=== PATIENT | female | born 1975 | race Caucasian/White ===

== ENCOUNTER 2019-09-19 08:25 | Outpatient (CLI) | payer BC, SELFPAY ==
--- NOTE | ~2019-09-19 | XR_ITS ---
XR abdomen/kub 1V DATE: 09/19/2019 08:44 INDICATION: Right kidney stone TECHNIQUE: AP view COMPARISON: 07/17/2019 KUB FINDINGS: There is suggestion of a large faintly calcified stone overlying the right ureteropelvic ju nction. Noncontrast CT examination of the abdomen and pelvis is recommended for more definitive confi rmation or exclusion of urinary tract stones as clinically appropriate. Bilateral calcified pelvic phleboliths. No visceromegaly is evident. The psoas shadows are intact. No evidence of bowel obstruction. IMPRESSION: Large faintly calcified right ureteropelvic junction stone is suggested; consider noncont rast CT abdomen pelvis examination Reviewed, dictated and finalized at [facility]. Reviewed, dictated and finalized at location [facility]. [employer] IMPRESSION: Large faintly calcified right ureteropelvic junction stone is sugge sted; consider noncontrast CT abdomen pelvis examination
== END 2019-09-19 08:26 | disposition home or self-care (01) ==
PROVIDERS: PCP Physician Assistant; Visit Provider Urology
DX: N20.0 Calculus of kidney (principal)
CPT/HCPCS: 74018

== ENCOUNTER 2019-09-21 11:12 | Outpatient (CLI) | payer BC, SELFPAY ==
--- NOTE | ~2019-09-21 | CT_ITS ---
EXAMINATION: CT abdomen pelvis wo con DATE: 09/21/2019 12:07 INDICATION: Right kidney stone. TECHNIQUE: Computed tomography (CT) of the abdomen and pelvis was performed without intravenous contr ast. Automated exposure control and iterative reconstruction technique were employed. The dose-length product was 269.83 mGy-cm. COMPARISON: CT abdomen and pelvis 11/30/2018 FINDINGS: The visualized portions of the lung bases demonstrate minimal atelectasis. No pleural effus ion. The heart size is normal. No pericardial effusion. The liver, gallbladder, spleen, pancreas, adr enal glands, and left kidney are normal. There is a 2 mm stone in right kidney. There is moderate rig ht hydronephrosis. There is a 7 x 5 x 13 mm stone at right ureteropelvic junction. There are no dilat ed loops of bowel. The appendix is normal. There are no pathologically enlarged lymph nodes. There is no free intraperitoneal fluid. There is mild thoracolumbar spondylosis. IMPRESSION: 1. 7 x 5 x 13 mm stone at right ureteropelvic junction with moderate right hydronephrosis. 2. 2 mm nonobstructing right kidney stone. Reviewed, dictated and finalized at location [facility]. [employer] IMPRESSION: 1. 7 x 5 x 13 mm stone at right ureteropelvic junction with moderate right hydr onephrosis. 2. 2 mm nonobstructing right kidney stone.
== END 2019-09-21 11:13 | disposition home or self-care (01) ==
LOC: ANHIMG 11:20
PROVIDERS: PCP Physician Assistant; Visit Provider Urology
DX: N20.0 Calculus of kidney (principal); N13.2 Hydronephrosis with renal and ureteral calculous obstruction
CPT/HCPCS: 74176

== ENCOUNTER 2019-09-21 23:26 | Emergency (ER) | payer BC, SELFPAY ==
[2019-09-21 23:30] VITALS: BP 135/93; PULSE 102; RESP 16; TEMP 36.1; O2SAT 100
--- NOTE | 2019-09-21 23:58 | ED.ABDPAIN ---
HPI - Abdominal Pain General Chief Complaint: Abdominal Pain Stated Complaint: kidney stone Time Seen by Provider: 09/21/19 23:29 Source: patient and RN notes reviewed Mode of arrival: ambulatory Limitations: no limitations History of Present Illness HPI narrative: Pt is a 43 y/o female with a Hx of frequent kidney stones and several lithotripsies, who presents to the ED with c/o rt flank pain starting several days ago and worsening this evening. She notes that she has been evaluated for her symptoms, and was diagnosed with a rt ureteral stone earlier today. Pt states that she is scheduled for a lithotripsy tomorrow morning. She notes that her pain became aggravated around 17:00 this evening. Pt reports nausea and vomiting starting this evening as well as a low-grade fever for the past week. She notes that she has been taking Tramadol for her pain. MD elicited complaint: flank pain Pertinent past history: kidney stones Onset (ago): day(s) (several) Pain Consistency: other (worsening) Location: R flank Radiation: none Associated symptoms: nausea, vomiting and fever (low-grade) Treatments prior to arrival: prescription analgesics (Tramadol) Related Data Home Medications Medication Instructions Recorded Confirmed phentermine 37.5 mg PO DAILY 09/21/19 09/21/19 potassium citrate 10 meq PO BID 09/21/19 09/21/19 tramadol 50 - 100 mg PO Q6H PRN 09/21/19 09/21/19 Allergies Allergy/AdvReac Type Severity Reaction Status Date / Time No Known Allergies Allergy Unverified 09/21/19 13:33 Review of Systems Review of Systems: All systems reviewed & are unremarkable except as noted in HPI and below Constitutional: Constitutional: Reports fever(s) (low-grade) Gastrointestinal: Gastrointestinal: Reports nausea and Reports vomiting Genitourinary: Genitourinary: Reports flank pain (rt flank pain) [facility] Past Medical History Medical History (Updated 09/22/19 @ 03:44 by Alexandro Aviles MD) Bronchitis Gastric ulcer GERD (gastroesophageal reflux disease) Graves' disease Hypothyroidism Kidney stones UTI (urinary tract infection) Surgical History Surgical History Hx of arthroscopy of right knee x2 Hx of section x3 Hx of lithotripsy Hx of thyroidectomy Hx of tubal ligation Family History Family History (Updated 03/13/16 @ 23:19 by DOCTOR UNKNOWN) Grandparent Hypertension Family history of malignant neoplasm of breast Mother Family history of malignant neoplasm of ovary Social History Social History Smoking status: Never smoker Alcohol intake: current Comments PCP is Dr. Frank. Exam Narrative: Exam Narrative: GENERAL: Uncomfortable appearing, well-nourished, and in no acute distress. HEAD: Normocephalic, atraumatic. ENT: Mucous membranes moist. CHEST: Clear to auscultation. No respiratory distress. HEART: Tachycardic and regular. Normal peripheral pulses. ABDOMEN: Soft, nontender, nondistended. Back: No CVA tenderness. No midline tenderness of the T/L-spine. EXTREMITIES: Normal range of motion. No edema. SKIN: Warm, dry, no rash. NEURO: Alert and oriented x3. Course Course Emergency Course: Discussed with Dr. Hammonds. Will give ceftriaxone and send to the PACU at 6a. Pt aware of treatment plan. Vital Signs Vital signs: Vital Signs Temperature 97.0 F L 09/21/19 23:30 Pulse Rate 102 H 09/21/19 23:30 Respiratory Rate 16 09/21/19 23:30 Blood Pressure 135/93 H 09/21/19 23:30 Pulse Oximetry 100 09/21/19 23:30 Temperature 98.0 F 09/22/19 01:20 Pulse Rate 78 09/22/19 01:20 Respiratory Rate 16 09/21/19 23:30 Blood Pressure 140/88 09/22/19 01:20 Pulse Oximetry 100 09/22/19 01:20 MDM - Abdominal Pain Lab Data Result diagrams: 09/22/19 00:05 09/22/19 00:05 Labs: Lab Results 09/22/19 09/22/19 09/22/19 Range/Units 00
[2019-09-22 00:15] LABS: Basophils Percent Auto 0.1 % (0.2-1.2); Eosinophils Absolute Auto 0.1 K/mm3 (0-0.3); Eosinophils Percent Auto 0.6 % (0-4.4); Hematocrit 43.7 % (37.0-47.0); Hemoglobin 14.3 g/dL (12.0-15.0); Immature Granulocyte Absolute 0.05 K/mm3 (0.00-0.031); Immature Granulocyte Percent A 0.4 % (0-0.5); Lymphocytes Absolute Auto 1.78 K/mm3 (0.9-3.2); Lymphocytes Percent Auto 13.2 % (18.3-44.2); Mean Corpuscular HGB Conc 32.7 g/dl (32-36); Mean Corpuscular Hemoglobin 29.1 pg (26-34); Mean Corpuscular Volume 88.8 fl (80-100); Mean Platelet Volume 10.1 fl (7.4-10.4); Monocytes Absolute Auto 0.7 K/mm3 (0.1-0.6); Monocytes Percent Auto 5.3 % (2.6-8.5); Neutrophils Absolute Auto 10.8 K/mm3 (1.3-6.7); Neutrophils Percent Auto 80.4 % (45.5-73.1); Platelet Count Result 335 k/mm3 (150-375); Red Blood Count 4.92 M/mm3 (4.2-5.4); White Blood Count 13.5 K/mm3 (4.5-10.0)
[2019-09-22 00:30] LABS: Blood Urea Nitrogen 18 mg/dL (7-17); Calcium 9.6 mg/dL (8.4-10.2); Carbon Dioxide 23 mmol/L (22-30); Chloride 99 mmol/L (98-107); Estimated CRCL calculation 48 ml/min; Estimated Glomerular Filt Rate 49; Glucose 117 mg/dL (65-105); Potassium 4.2 mmol/L (3.4-5.0); Sodium 137 mmol/L (137-145)
[2019-09-22] MEDS: HYDROMORPHONE HCL 1 MG/ML INJ IV PUSH (00:33)
[2019-09-22] MEDS: ONDANSETRON INJ 4 MG/2 ML VIAL IV PUSH ×2 (00:33→01:05)
[2019-09-22 01:03] VITALS: TEMP 36.1
[2019-09-22] MEDS: SODIUM CHLORIDE 0.9% IV 1,000 ML 999 ML IV CONT (01:04)
[2019-09-22 01:20] VITALS: BP 140/88; PULSE 78; TEMP 36.7; O2SAT 100
[2019-09-22 02:14] LABS: Add Urine Microscopic? YES; Appearance Urine Turbid (Clear); Bacteria Urine 2+ /hpf; Bilirubin Urine Negative (Negative); Blood Urine 2+ (Negative); Color Urine Yellow (Yellow); Glucose Urine UA Negative (Negative); Ketones Urine 2+ mg/dL (Negative); Leukocyte Esterase Ur 2+ LEU/UL (Negative); Mucus Urine Moderate /lpf; Nitrate Urine Negative (Negative); Protein Urine 2+ mg/dL (Negative); RBC Urine 51-75 /hpf (0-2); Squamous Epithelial Cell Urine Many /hpf (Few); WBC Clumps Urine Present /HPF; WBC Urine >75 /hpf
[2019-09-22] MEDS: PROMETHAZINE HCL 25 MG/ML AMPUL 12.5 MG IV PUSH (02:18)
[2019-09-22 02:19] LABS: Specific Grav Ur 1.033 (1.001-1.035)
[2019-09-22 03:00] VITALS: BP 129/87; PULSE 82; RESP 22; TEMP 37.6; O2SAT 98
[2019-09-22 05:02] VITALS: BP 133/78; PULSE 87; RESP 17; O2SAT 96
[2019-09-22 06:05] VITALS: BP 137/82; PULSE 88; RESP 19; O2SAT 100
== END 2019-09-22 06:05 | disposition home or self-care (01) ==
PROVIDERS: Emergency Provider Emergency Medicine; PCP Physician Assistant
DX: N20.1 Calculus of ureter (principal); Z87.442 Personal history of urinary calculi; K21.9 Gastro-esophageal reflux disease without esophagitis; E05.00 Thyrotoxicosis with diffuse goiter without thyrotoxic crisis or storm; Z87.440 Personal history of urinary (tract) infections
CPT/HCPCS: 36415; 80048; 81001; 85025; 87077; 87086; 87088; 96361; 96365; 96375; 99284; J0696; J1170; J2405; J2550; J7030

== ENCOUNTER 2019-09-22 01:07 | Day surgery (SDC) | payer BC, SELFPAY ==
[2019-09-21 13:30] VITALS: BMI 31.2
[2019-09-22] VITALS (8 sets, daily range): BP systolic 128–144; BP diastolic 83–96; PULSE 77–115; RESP 15–20; TEMP 36.6; O2SAT 95–100
--- NOTE | ~2019-09-22 | XR_ITS ---
EXAMINATION: XR abdomen/kub 1V DATE: 09/22/2019 06:32 INDICATION: Kidney stone. TECHNIQUE: A supine view of the abdomen on 2 radiographs was obtained. COMPARISON: CT abdomen and pelvis 09/21/2019 FINDINGS: There are no dilated loops of bowel. There are phleboliths in the pelvis. There is a 14 x 6 mm stone in proximal right ureter. IMPRESSION: 1. 14 x 6 mm stone in proximal right ureter. Reviewed, dictated and finalized at location [facility]. [employer]
[2019-09-22] MEDS: LACTATED RINGERS 1,000 ML 30 ML IV CONT ×2 (06:45→09:44)
--- NOTE | 2019-09-22 06:51 | WPDANESEPPF ---
Anes - Initial Pre Proc Eval Procedure: Operation Date: 09/22/19 08:30 Proposed Procedures p Right Ureteropelvic Junction Extracorporeal Shock Wave Lithotripsy - Adis Grover MD s Cystoscopy, Possible Right Ureteroscopy with Stone Extraction, Possible Right Retrograde Pyelogram,(Right) - Adis Grover MD s Possible Holmium Laser Procedure(Right) - Adis Grover MD Date/Time: 09/22/19 06:51 Surgeon: Adis Grover MD Pre Op Diagnosis: Right UPJ Stone Patient Data Age: 43 Gender: F Height: 5 ft Weight: 72.57 kg Allergies Allergy/AdvReac Type Severity Reaction Status Date / Time No Known Allergies Allergy Unverified 09/21/19 13:33 Home Medications Medication Instructions Recorded Confirmed Type levothyroxine 100 mcg tablet 100 mcg PO DAILY #30 tablet 07/17/19 09/21/19 Rx phentermine 37.5 mg PO DAILY 09/21/19 09/21/19 History potassium citrate 10 meq PO BID 09/21/19 09/21/19 History tramadol 50 - 100 mg PO Q6H PRN 09/21/19 09/21/19 History Patient hx anesthesia problems: post op nausea/vomiting Family hx anesthesia problems: none PMFSH Past Medical History Medical History Bronchitis Gastric ulcer GERD (gastroesophageal reflux disease) Graves' disease Hypothyroidism Kidney stones UTI (urinary tract infection) Surgical History Surgical History Hx of arthroscopy of right knee x2 Hx of section x3 Hx of lithotripsy Hx of thyroidectomy Hx of tubal ligation Family History Family History Grandparent Hypertension Family history of malignant neoplasm of breast Mother Family history of malignant neoplasm of ovary Social History Social History Smoking status: Never smoker Alcohol intake: current Anes - Eval Final PreProcedure Day of Procedure 09/22/19 06:51 Patient weight: overweight Heart: regular rate and rhythm Lungs: clear to auscultation Airway: Mallampati scale class II Neurological: alert and oriented Last oral intake: >/= 8 hours ASA classification: II Emergent: no Anesthetic plan: proceed Anesthesia type and monitoring: general ETT and standard monitoring Informed Consent: The patient's anesthetic plan and its attendant risks and benefits were discussed with the patient/family/POA. Questions were solicited and answers provided to the satisfaction of the patient/family/POA.
[2019-09-22 07:14] LABS: Prothrombin Time 12.7 Seconds (11.1-14.7)
[2019-09-22] MEDS: SCOPOLAMINE 1.5 MG PATCH TRANSDERM (07:15)
[2019-09-22] MEDS: FAMOTIDINE 20 MG/2 ML VIAL IV PUSH (07:15)
[2019-09-22] MEDS: HYDROMORPHONE HCL 1 MG/ML INJ 0.5 MG IV PUSH (07:15)
[2019-09-22 07:25] LABS: Beta HCG Quantitative < 2.39 mIU/ML
--- NOTE | 2019-09-22 07:36 | WPDHPUPDATE1 ---
History and Physical Update Update Date/Time: 09/22/19 07:36 History and Physical has been reviewed, including an updated exam of the patient. There are NO changes in the patient's condition. Risks, benefits, and alternatives have been discussed and questions answered. Patient agrees to proceed with procedure.
--- NOTE | 2019-09-22 08:01 | SUR.PREOP ---
pt presents to preop holding area w/iv cath in place to right upper arm/see documentation for site/assessment
[2019-09-22] MEDS: ceFAZolin 2 GM/D5W 50 ML 2 GM/50 ML BAG IVPB (08:42)
--- NOTE | 2019-09-22 09:41 | PM.PROC ---
Procedure Note - Detailed Date of procedure: 09/22/19 Pre-op diagnosis: Right UPJ Stone Post-op diagnosis: same Procedure performed: Lithotripsy of 14 x 6 mm right ureteral calculus Description of procedure: Patient was taken to the operative suite and correctly identified. Once general anesthesia was obtained stone was localized in both planes. Three thousand shocks were given to the stone. There appeared to be very good fragmentation of the stone it was difficult to visualize at the termination. As such is she does not tolerate stents we decided to withhold placing one today. He was taken to recovery room stable condition. She will strain her urine and follow up in 7-10 days with a KUB. Anesthesia: GLMA Surgeon: Adis Grover MD Drains: No Packing: No Pathology: none sent Complications: No immediate complications Condition: stable Disposition: PACU
--- NOTE | 2019-09-22 10:15 | SUR.PHASEI ---
1015; PT C/O MILD NAUSEA. DENIES PAIN. DR BHAGAT NOTIFIED. STATES PT RECEIVED MULTIPLE MEDS FOR NAUSEA. ORDER FOR BENADRYL.
== END 2019-09-22 11:45 | disposition home or self-care (01) ==
PROVIDERS: PCP Physician Assistant; Visit Provider Urology
PROC: (CPT 50590; principal; 2019-09-22 08:30)
DX: N20.1 Calculus of ureter (principal); K21.9 Gastro-esophageal reflux disease without esophagitis; E89.0 Postprocedural hypothyroidism
CPT/HCPCS: 50590; 36415; 74018; 80048; 81001; 84702; 85025; 85610; 85730; 87077; 87086; 87088; 96361; 96365; 96375; 99284; A9270; J0131; J0330; J0690; J0696; J1100; J1170; J1200; J2250; J2405; J2550; J2704; J3010; J7030; J7120

== ENCOUNTER 2019-09-27 01:11 | Observation (INO) | payer BC, SELFPAY ==
[2019-09-27] VITALS (15 sets, daily range): BP systolic 115–145; BP diastolic 71–99; PULSE 69–97; RESP 10–20; TEMP 36.2–36.8; O2SAT 93–100; BMI 32.0
--- NOTE | ~2019-09-27 | CT_ITS ---
EXAMINATION: XR abdomen/kub 1V, CT abdomen pelvis wo con DATE: 09/27/2019 02:33 INDICATION: Right flank pain TECHNIQUE: 1. Computed tomography (CT) of the abdomen and pelvis was performed without intravenous contrast. Aut omated exposure control and iterative reconstruction technique were employed. The dose-length product was 272.96 mGy-cm. 2. Supine AP view of the abdomen and pelvis was obtained. COMPARISON: 09/21/2019 FINDINGS: CT: Lung bases are clear. Size is normal. No pericardial or pleural effusion. Liver, gallbladder, spleen, pancreas, bilateral adrenal glands and left kidney are normal. No change in position but with interv al fragmentation of the previously seen stone at the proximal right ureter consistent with interval l ithotripsy. The cluster of stones is now comprised of a 7 x 5 x 4 mm more caudal stone fragment and 4 mm or more likely pair of 2 mm stone fragments along its cephalad margin. There is unchanged moderat e right hydronephrosis. Additional 2 mm stone at the mid right kidney. Bowels including the appendix are normal. Decompressed bladder, anteverted uterus and bilateral adnexa are unremarkable. No free in traperitoneal gas or fluid. No pathologically enlarged abdominal or pelvic lymphadenopathy. Mild thor acic and minimal lumbar spondylosis. KUB: The cluster of stone fragments projects slightly lateral to the tip of the right transverse process o f L3. A few phleboliths in the pelvis. Additional 2 mm right renal stone is clearly visualized likely obscured by superimposed mild gas and stool in the ascending colon. IMPRESSION: 1. Changes consistent with recent lithotripsy with no change in position of a posterior residual ston e fragments at the proximal right ureter with moderate right hydronephrosis. Reviewed, dictated and finalized at location A. [employer] IMPRESSION: 1. Changes consistent with recent lithotripsy with no change in position of a p osterior residual stone fragments at the proximal right ureter with moderate ri ght hydronephrosis.
--- NOTE | ~2019-09-27 | XR_ITS ---
EXAMINATION: XR retrograde pyelo w/stent RT INDICATION: Right ureteral stone TECHNIQUE: Four intraoperative fluoroscopic images are submitted for review. Total fluoroscopic time is 10.3 seconds. COMPARISON: KUB from today FINDINGS: There is mild right hydronephrosis. The final image demonstrates an internal ureteral stent coiled in the right renal pelvis. IMPRESSION: Mild right hydronephrosis. Please refer to procedure note for full details. Reviewed, dictated and finalized at location A. [employer]
[2019-09-27 01:39] LABS: Basophils Percent Auto 0.2 % (0.2-1.2); Eosinophils Absolute Auto 0.1 K/mm3 (0-0.3); Eosinophils Percent Auto 1.4 % (0-4.4); Hematocrit 42.2 % (37.0-47.0); Hemoglobin 13.8 g/dL (12.0-15.0); Immature Granulocyte Absolute 0.03 K/mm3 (0.00-0.031); Immature Granulocyte Percent A 0.4 % (0-0.5); Lymphocytes Absolute Auto 1.74 K/mm3 (0.9-3.2); Lymphocytes Percent Auto 20.8 % (18.3-44.2); Mean Corpuscular HGB Conc 32.7 g/dl (32-36); Mean Corpuscular Hemoglobin 28.9 pg (26-34); Mean Corpuscular Volume 88.5 fl (80-100); Monocytes Absolute Auto 0.7 K/mm3 (0.1-0.6); Monocytes Percent Auto 8.8 % (2.6-8.5); Neutrophils Absolute Auto 5.7 K/mm3 (1.3-6.7); Neutrophils Percent Auto 68.4 % (45.5-73.1); Platelet Count Result 366 k/mm3 (150-375); Red Blood Count 4.77 M/mm3 (4.2-5.4); Red Cell Distribution Width 12.9 % (11.5-14.5); White Blood Count 8.4 K/mm3 (4.5-10.0)
--- NOTE | 2019-09-27 01:43 | ED.ABDPAIN ---
HPI - Abdominal Pain General Chief Complaint: Abdominal Pain Stated Complaint: flank pain Time Seen by Provider: 09/27/19 01:42 Source: patient and RN notes reviewed Mode of arrival: other Limitations: no limitations History of Present Illness HPI narrative: Pt is a 43 y/o female who presents to the ED with c/o right flank pain that began at 5 PM yesterday (09/27/19). Pt states that she had a lithotripsy by Dr. Grover on Wednesday (09/22/19). Pt finished her abx two days ago (09/25/19). Pt states that she took Tramadol last night (09/26/19), but with no relief of her sx. Pt reports nausea, vomiting, and decreased urination, but denies CP and SOB. Pt's urologist is Dr. Segovia. elicited complaint: flank pain Onset (ago): day(s) (1) Pain Consistency: constant Location: R flank Relieving factors: nothing Context: confirms recent surgery/procedure Associated symptoms: nausea, vomiting and other (decreased urination) Treatments prior to arrival: other (Tramadol) Related Data Home Medications Medication Instructions Recorded Confirmed phentermine 37.5 mg PO DAILY 09/21/19 09/27/19 potassium citrate 10 meq PO BID 09/21/19 09/27/19 tramadol 50 - 100 mg PO Q6H PRN 09/21/19 09/27/19 Allergies Allergy/AdvReac Type Severity Reaction Status Date / Time No Known Allergies Allergy Unverified 09/27/19 02:15 Review of Systems Review of Systems: All systems reviewed & are unremarkable except as noted in HPI and below Cardiovascular: Cardiovascular: Denies chest pain Respiratory: Respiratory: Denies dyspnea Gastrointestinal: Gastrointestinal: Reports nausea and Reports vomiting Genitourinary: Genitourinary: Reports flank pain (right) and Reports other (decreased urination) PMFSH Past Medical History Medical History Bronchitis Gastric ulcer GERD (gastroesophageal reflux disease) Graves' disease Hypothyroidism Kidney stones UTI (urinary tract infection) Surgical History Surgical History Hx of arthroscopy of right knee x2 Hx of section x3 Hx of lithotripsy Hx of thyroidectomy Hx of tubal ligation Family History Family History Grandparent Hypertension Family history of malignant neoplasm of breast Mother Family history of malignant neoplasm of ovary Social History Social History Smoking status: Never smoker Alcohol intake: current Drinks per week: 0 Substance use: never Substance use type: does not use Gender identity (if verbalized by the patient): Female Spiritual care concerns: No Agree to blood products: Yes Exam Narrative: Exam Narrative: GENERAL: well-nourished, in severe distress. leaning over bed HEAD: Normocephalic, atraumatic EYES: PERRLA and EOMI, conjunctiva clear without discharge THROAT:Mucous membranes moist, NECK: Supple, without lymphadenopathy or mass RESPIRATORY: No respiratory distress, Airway patent, Respirations non-labored, Clear to auscultation without rales, rhonchi or wheeze HEART: Regular rate and rhythm. No murmur heard. Normal peripheral pulses. ABDOMEN: Soft, RUQ, right CVA tenderness nondistended, normal active bowel sounds. No masses. No rebound or guarding, No organomegaly. EXTREMITIES: No edema, normal strength with full range of motion. SKIN: Warm, dry, normal color without rash NEURO: Alert and oriented x3. CN 2-12 grossly intact. No focal deficits. PSYCH: Normal mood and affect. Course Consultations Consultation #1: Discussed case with Dr. Hammonds (Urology). He accepts patient to their service for right proximal stone with obstructive uropathy. he states to make patient NPO. Date: 09/27/19 Time: 02:56 Vital Signs Vital signs: Vital Signs Temperature 97.1 F L 09/27/19 01:16 Pulse
[2019-09-27 01:44] LABS: Blood Urea Nitrogen 21 mg/dL (7-17); Calcium 9.7 mg/dL (8.4-10.2); Carbon Dioxide 25 mmol/L (22-30); Chloride 97 mmol/L (98-107); Estimated CRCL calculation 33 ml/min; Estimated Glomerular Filt Rate 31; Glucose 117 mg/dL (65-105); Potassium 4.2 mmol/L (3.4-5.0); Sodium 134 mmol/L (137-145)
[2019-09-27] MEDS: LACTATED RINGERS 1,000 ML 999 ML IV CONT (02:10)
[2019-09-27 02:11] LABS: Add Urine Microscopic? YES; Appearance Urine Cloudy (Clear); Bacteria Urine Trace /hpf; Bilirubin Urine Negative (Negative); Blood Urine Negative (Negative); Color Urine Yellow (Yellow); Glucose Urine UA Negative (Negative); Ketones Urine Negative (Negative); Leukocyte Esterase Ur Trace LEU/UL (Negative); Mucus Urine Rare /lpf; Nitrate Urine Negative (Negative); Protein Urine Negative (Negative); Squamous Epithelial Cell Urine Many /hpf (Few); Urobilinogen Urine Negative mg/dL (<2.0)
[2019-09-27] MEDS: HYDROMORPHONE HCL 1 MG/ML INJ IV PUSH (02:13)
[2019-09-27] MEDS: ONDANSETRON INJ 4 MG/2 ML VIAL IV PUSH ×2 (02:13→16:43)
[2019-09-27] MEDS: LACTATED RINGERS 1,000 ML 125 ML IV CONT ×2 (04:04→12:19)
--- NOTE | 2019-09-27 04:07 | ADMGEN ---
This patient, Carrie Ca, was admitted to Medical Room [facility] at 0403. Patient/family oriented to hospital policies and general routines including ID bracelet, bed and alarms, visiting hours, pain management, procedures, bathroom and other care routines, personal items, smoking policy, room service/diet, and visiting hours. Valuables list has been completed. Information on how to activate the Rapid Response Team has been discussed. Patient/Family are encouraged to report perceived risks to care and to ask questions if they do not understand what they are told or what they should do.
[2019-09-27] MEDS: PROMETHAZINE HCL 25 MG/ML AMPUL 12.5 MG IV PUSH (04:16)
[2019-09-27] MEDS: MORPHINE SULFATE 4 MG/ML INJ IV PUSH (04:17)
--- NOTE | 2019-09-27 07:05 | PM.IMHP ---
H&P: HPI History of Present Illness Chief complaint: right obstructive uropathy,right proximal ureteral Narrative: Carrie Ca is a 43 year old female who is status post right ureteral lithotripsy last week. She was doing well and stated she passed some fragments but then developed severe right renal colic and ended up in the emergency room last night. Evaluation the emergency room with a CT scan reveals residual right proximal ureteral stones there does appear to be some fragmentation but overall is fairly large in size at approximately 5-6 mm. She had persistent hydronephrosis. Her creatinine had bumped up slightly to 1.8. She is admitted for pain control and further management. She denied any fevers at home. Review of Systems Review of Systems: All systems reviewed & are unremarkable except as noted in HPI and below PMFSH Past Medical History Medical History Bronchitis Gastric ulcer GERD (gastroesophageal reflux disease) Graves' disease Hypothyroidism Kidney stones UTI (urinary tract infection) Surgical History Surgical History Hx of arthroscopy of right knee x2 Hx of section x3 Hx of lithotripsy Hx of thyroidectomy Hx of tubal ligation Family History Family History Grandparent Hypertension Family history of malignant neoplasm of breast Mother Family history of malignant neoplasm of ovary Social History Social History Smoking status: Never smoker Alcohol intake: current Drinks per week: 0 Substance use: never Substance use type: does not use Gender identity (if verbalized by the patient): Female Spiritual care concerns: No Agree to blood products: Yes Meds Home Medications and Allergies Home Medications Medication Instructions Recorded Confirmed Type levothyroxine 100 mcg tablet 100 mcg PO DAILY #30 tablet 07/17/19 09/27/19 Rx phentermine 37.5 mg PO DAILY 09/21/19 09/27/19 History potassium citrate 10 meq PO BID 09/21/19 09/27/19 History tramadol 50 - 100 mg PO Q6H PRN 09/21/19 09/27/19 History Allergies Allergy/AdvReac Type Severity Reaction Status Date / Time No Known Allergies Allergy Unverified 09/27/19 02:15 Vital Signs Vital Signs - 24 hr 09/27/19 01:16 09/27/19 03:55 09/27/19 05:44 Temperature 36.2 C L 36.3 C L 36.3 C L Pulse Rate 69 73 81 Respiratory Rate 18 14 16 Blood Pressure 128/95 H 133/90 130/95 H Pulse Oximetry 99 100 100 Exam Const: General: uncomfortable HENMT: General nose exam: Normal nares present Eyes: General: appearance normal, both eyes and all related structures Resp: Effort & Inspection: normal respiratory effort Cardio: Rate: regular rate Rhythm: regular rhythm Skin: General skin exam: normal color Neuro: Speech: normal speech Extrem: General: normal to inspection H&P: Results Labs Labs: Short CBC 09/27/19 Range/Units 01:27 WBC 8.4 (4.5-10.0) K/mm3 Hgb 13.8 (12.0-15.0) g/dL Hct 42.2 (37.0-47.0) % Plt Count 366 (150-375) k/mm3 [facility] 09/27/19 01:27 Sodium 134 L Potassium 4.2 Chloride 97 L Carbon Dioxide 25 BUN 21 H Creatinine 1.80 H Glucose 117 H Calcium 9.7 Urine 09/27/19 Range/Units 01:48 Urine Color Yellow (Yellow) Urine Appearance Cloudy H (Clear) Urine pH 6.0 (5.0-9.0) Ur Specific [place] 1.020 (1.001-1.035) Urine Protein Negative (Negative) mg/dL Urine Glucose (UA) Negative (Negative) mg/dL Assessment and Plan Assessment and plan (1) Right ureteral calculus: Code(s): N20.1 - Calculus of ureter Status: Acute Assessment and Plan: Plan is for pain control. We will proceed with cystoscopy right retrograde pyelogram right ureteral stent placement today
[2019-09-27] MEDS: LEVOTHYROXINE SODIUM 100 MCG TABLET PO (09:28)
[2019-09-27] MEDS: POTASSIUM CITRATE 5 MEQ TAB CR 10 MEQ PO (09:28)
--- NOTE | 2019-09-27 13:49 | PCCCNOTE ---
On 09/27/19, the student, [Suyapa Angelo ], provided care [facility] I have reviewed the student's documentation and agree with the findings.
[2019-09-27] MEDS: LACTATED RINGERS 1,000 ML 30 ML IV CONT ×2 (15:15→16:50)
--- NOTE | 2019-09-27 15:43 | P.PNAN_ITS ---
Anes - Eval Final PreProcedure Day of Procedure 09/27/19 15:43 Patient weight: obese Heart: regular rate and rhythm Lungs: clear to auscultation Airway: Mallampati scale class II Neurological: alert and oriented Last oral intake: >/= 8 hours ASA classification: II Emergent: yes Anesthetic plan: proceed Anesthesia type and monitoring: general LMA and standard monitoring Informed Consent: The patient's anesthetic plan and its attendant risks and be nefits were discussed with the patient/family/POA. Questions were solicited and answers provided to the satisfaction of the patient/family/POA.
[2019-09-27] MEDS: SCOPOLAMINE 1.5 MG PATCH TRANSDERM (15:49)
[2019-09-27] MEDS: ceFAZolin 2 GM/D5W 50 ML 2 GM/50 ML BAG IVPB (15:53)
[2019-09-27] MEDS: LIDOCAINE HCL 2% GEL UROJET 10 ML PKG MUCOUS MEM (16:08)
--- NOTE | 2019-09-27 16:26 | P.OP_ITS ---
Procedure Note - Detailed Date of procedure: 09/27/19 Pre-op diagnosis: right obstructive uropathy,right proximal ureteral Post-op diagnosis: same Procedure performed: Cystoscopy, right retrograde pyelogram, right ureteroscopy with holmium laser of ureteral calculus, stone extraction, right ureteral stent placement 4.8 Indonesian contour Description of procedure: Patient was taken the operative suite and correctly identified. Once general anesthesia was obtained she was placed in dorsal lithotomy position prepped and draped usual sterile fashion. Twenty-two Indonesian scope was inserted into the bladder. There are no tumors noted the right year orifice was cannulated with a guidewire. A rigid ureteral scope was inserted the stone was visualized at the level of the sacral area. It was too large retrieved in 1 piece. Using a 273 micron fiber we lasered the stone into multiple pieces. The largest were sent for analysis. The ureter was reinspected all the way up to the renal pelvis no further stones identified. Pyelogram was then performed to confirm placement of the stent. 4.8 Indonesian contour stent was then placed with the proximal end coiled in the renal pelvis and the distal end the bladder. 2% viscous lidocaine was inserted into the bladder after was drained. Patient is taken recovery stable condition. She will be discharged home later today if she is tolerates a diet. She can follow up Wednesday for stent removal in [place] office. Anesthesia: GLMA Surgeon: Adis Grover MD Drains: Yes Packing: No Pathology: yes Complications: No immediate complications Condition: stable Disposition: PACU
--- NOTE | 2019-09-27 17:23 | SUR.PHASEI ---
1700 updated family in waiting room.
[2019-09-27] MEDS: HALOPERIDOL LACTATE 5 MG/ML VIAL 1 MG IV PUSH (18:01)
--- NOTE | 2019-10-24 13:52 | P.DS_ITS ---
DS: Diagnosis Admitting Diagnosis Admitting Diagnosis: Unspecified abdominal pain DS: Summary Time Spent with Patient Time attestation: Total time spent providing and/or coordinating discharge services: DS: Data Data Completed and Pending Completed studies during hospitalization: Pending at discharge 09/27/19 16:15 Surgical [PTH] Routine Discharge Plan Discharge Attending physician on discharge: Adis Grover Consulting providers: rPasanna Hahn ; Shamar Marin Discharging Clinician: Adis Grover Patient Disposition: Home, Self-Care Activity: may shower and as tolerated Diet: as tolerated Discharge Instructions: Remove the Scopolamine patch that was placed behind your ear in 72 hours or less. Wash your hands after touching. Call for appointment to have stent removed. Can be seen in [place] office on Wednesday otherwise later in the week in [place] office Patient Instructions: Antibiotic Form Stand Alone Forms: General Discharge Information Follow-up/Referrals: Adis Grover MD [Physician] - Discharge Medications: Continued levothyroxine 100 mcg tablet 100 mcg PO DAILY Qty: 30 RF: 3 phentermine 37.5 mg tablet 37.5 mg PO DAILY RF: 0 potassium citrate 10 mEq (1,080 mg) tablet extended release 10 meq PO BID RF: 0 tramadol 50 mg tablet 50 - 100 mg PO Q6H PRN (Reason: Pain) RF: 0 Date of admission: 09/27/19 03:03 Primary Care Provider: LuzmaMigel Admitting Provider: Lewis Hammonds Discharge Date/Time: 09/27/19 19:35 Attending physician on admission: Adis Grover Condition: Stable
== END 2019-09-27 19:35 | disposition home or self-care (01) ==
LOC: ANHED 02:54 → ANH2MED 07:15
PROVIDERS: Admitting Provider Urology; Emergency Provider General Practice; PCP Physician Assistant; Visit Provider Urology
PROC: (CPT 52352; principal; 2019-09-27 15:30)
DX: N13.2 Hydronephrosis with renal and ureteral calculous obstruction (principal); N17.9 Acute kidney failure, unspecified; E03.9 Hypothyroidism, unspecified
CPT/HCPCS: 52356; 36415; 74018; 74176; 74420; 80048; 81001; 81025; 82365; 85025; 88300; 96361; 96374; 96375; 96376; 99291; A9270; C1758; C1769; C2617; G0378; J0131; J0690; J1100; J1170; J1630; J2250; J2270; J2405; J2550; J2704; J7120; Q9966

== ENCOUNTER 2019-10-12 17:17 | Outpatient (CLI) | payer BC, SELFPAY ==
--- NOTE | ~2019-10-12 | XR_ITS ---
EXAMINATION: XR abdomen/kub 1V DATE: 10/12/2019 17:41 INDICATION: Kidney stone presenting with right flank pain TECHNIQUE: A supine view of the abdomen was obtained. COMPARISON: 09/27/2019 FINDINGS: Previous stone seen in the mid right ureter is no longer visualized and has likely been extracted. Un changed pattern of a few phleboliths in the pelvis. No other suspicious calcifications identified. No rmal bowel gas pattern. Bones are unremarkable. IMPRESSION: 1. No evident urolithiasis. Reviewed, dictated and finalized at location A. E TECHNICIAN IMPRESSION: 1. No evident urolithiasis.
== END 2019-10-12 17:18 | disposition home or self-care (01) ==
LOC: ANHIMG 17:20
PROVIDERS: PCP Physician Assistant; Visit Provider Urology
DX: N20.0 Calculus of kidney (principal)
CPT/HCPCS: 74018

== ENCOUNTER 2020-02-17 13:45 | Outpatient (CLI) | payer BC, SELFPAY ==
--- NOTE | ~2020-02-17 | XR_ITS ---
EXAMINATION: XR abdomen/kub 1V DATE: 02/17/2020 14:02 INDICATION: Right ureteral stone TECHNIQUE: A supine view of the abdomen on 2 radiographs was obtained. COMPARISON: 10/12/2019 FINDINGS: Unchanged pattern of 4 phleboliths in the pelvis. No evident urolithiasis. Normal bowel gas pattern. Lung bases are clear. Heart size is normal. Bones are unremarkable. IMPRESSION: 1. No evident urolithiasis. Reviewed, dictated and finalized at location A. IMPRESSION: 1. No evident urolithiasis.
== END 2020-02-17 13:46 | disposition home or self-care (01) ==
PROVIDERS: PCP Physician Assistant; Visit Provider Urology
DX: N20.1 Calculus of ureter (principal)
CPT/HCPCS: 74018

== ENCOUNTER 2020-03-04 11:13 | Outpatient (CLI) | payer BC, SELFPAY ==
[2020-03-04 12:03] LABS: Hematocrit 43.3 % (37.0-47.0); Hemoglobin 14.1 g/dL (12.0-15.0); Mean Corpuscular HGB Conc 32.6 g/dl (32-36); Mean Corpuscular Hemoglobin 28.6 pg (26-34); Mean Corpuscular Volume 87.8 fl (80-100); Mean Platelet Volume 9.8 fl (7.4-10.4); Platelet Count Result 352 k/mm3 (150-375); Red Blood Count 4.93 M/mm3 (4.2-5.4); White Blood Count 7.4 K/mm3 (4.5-10.0)
[2020-03-04 12:42] LABS: Thyroid Stimulating Hormone 0.064 uIU/mL (0.465-4.680)
[2020-03-04 13:25] LABS: Free T4 Free Thyroxine 1.86 ng/mL (0.78-2.19)
[2020-03-07 06:13] LABS: Prolactin 7.7 ng/mL (***)
== END 2020-03-04 11:14 | disposition home or self-care (01) ==
PROVIDERS: PCP Physician Assistant; Visit Provider Nurse Practitioner
DX: N92.0 Excessive and frequent menstruation with regular cycle (principal)
CPT/HCPCS: 36415; 84146; 84439; 84443; 85027

== ENCOUNTER → 2020-03-15 10:12 | Outpatient (CLI) | payer BC, SELFPAY ==
--- NOTE | ~2020-03-15 | US_ITS ---
EXAMINATION: US transvaginal DATE: 03/15/2020 10:48 INDICATION: Menorrhagia, pelvic pain and pressure TECHNIQUE: Multiple endovaginal sonographic images of the pelvis were obtained. COMPARISON: CT, 09/27/2019 FINDINGS: The uterus measures 8.7 x 2.6 x 4.3 cm. The endometrial complex measures 4 mm. The right ov rosemary measures 1.3 x 1.7 x 1.3 cm. The left ovary measures 2.1 x 1.3 x 1.4 cm. There is no free fluid i n the pelvis. IMPRESSION: 1. No sonographic correlate for the patient's symptoms. Reviewed, dictated and finalized at location B.
== END ==
PROVIDERS: PCP Physician Assistant; Visit Provider Nurse Practitioner
DX: N92.0 Excessive and frequent menstruation with regular cycle (principal); N85.2 Hypertrophy of uterus
CPT/HCPCS: 76830

== ENCOUNTER 2020-06-26 09:10 | Outpatient (CLI) | payer BC, SELFPAY ==
--- NOTE | 2020-06-26 11:00 | NEURO_ITS ---
Impression: # Complains of nocturnal pain in hands. # Bilateral Carpal Tunnel Syndrome, right more than left. # No ulnar neuropathy. # Normal needle/EMG exam. Nerve Conduction Studies Anti Sensory Summary Table Stim Site NR Peak (ms) P-T Amp (?V) Site1 Site2 Delta-P (ms) Dist (cm) Adolph (m/s) Left Median Anti Sensory (2-3nd Digit) Wrist 3.6 78.6 Wrist 2-3nd Digit 3.6 14.0 39 Wrist 3.7 78.0 Wrist 2-3nd Digit 3.6 14.0 39 Right Median Anti Sensory (2-3nd Digit) Wrist 5.9 31.8 Wrist 2-3nd Digit 5.9 14.0 24 Wrist 7.1 76.0 Wrist 2-3nd Digit 5.9 14.0 24 Left Radial Anti Sensory (Base 1st Digit) Wrist 2.2 17.6 Wrist Base 1st Digit 2.2 0.0 Right Radial Anti Sensory (Base 1st Digit) Wrist 2.1 21.9 Wrist Base 1st Digit 2.1 0.0 Left Ulnar Anti Sensory (5th Digit) Wrist 2.6 45.8 Wrist 5th Digit 2.6 14.0 54 Right Ulnar Anti Sensory (5th Digit) Wrist 2.8 78.5 Wrist 5th Digit 2.8 14.0 50 Motor Summary Table Stim Site NR Onset (ms) O-P Amp (mV) Site1 Site2 Delta-0 (ms) Dist (cm) Adolph (m/s) Left Median Motor (Abd Poll Brev) Wrist 4.3 5.3 Elbow Wrist 4.3 24.0 56 Elbow 8.6 2.3 Right Median Motor (Abd Poll Brev) Wrist 6.4 1.5 Elbow Wrist 4.1 23.0 56 Elbow 10.5 2.0 Left Ulnar Motor (Abd Dig Minimi) Wrist 2.3 5.8 A Elbow Wrist 4.5 27.0 60 A Elbow 6.8 5.9 Right Ulnar Motor (Abd Dig Minimi) Wrist 2.2 7.3 A Elbow Wrist 4.3 26.0 60 A Elbow 6.5 6.6 F Wave Studies NR F-Lat (ms) L-R F-Lat (ms) Left Median (Mrkrs) (Abd Poll Brev) 28.30 0.94 Right Median (Mrkrs) (Abd Poll Brev) 29.24 0.94 Left Ulnar (Mrkrs) (Abd Dig Min) 25.43 0.42 Right Ulnar (Mrkrs) (Abd Dig Min) 25.86 0.42 EMG Side Muscle Nerve Root Ins Act Fibs Amp Dur Recrt Comment Right 1stDorInt Ulnar C8-T1 Nml Nml Nml Nml Nml Right Ext Indicis Radial (Post Int) C7-8 Nml Nml Nml Nml Nml Right Ext Digitorum Radial (Post Int) C7-8 Nml Nml Nml Nml Nml Right BrachioRad Radial C5-6 Nml Nml Nml Nml Nml Right PronatorTeres Median C6-7 Nml Nml Nml Nml Nml Right Abd Poll Brev Median C8-T1 Nml Nml Nml Nml Nml Left 1stDorInt Ulnar C8-T1 Nml Nml Nml Nml Nml Left Ext Indicis Radial (Post Int) C7-8 Nml Nml Nml Nml Nml Left Ext Digitorum Radial (Post Int) C7-8 Nml Nml Nml Nml Nml Left BrachioRad Radial C5-6 Nml Nml Nml Nml Nml Left PronatorTeres Median C6-7 Nml Nml Nml Nml Nml Left Abd Poll Brev Median C8-T1 Nml Nml Nml Nml Nml MTDD
== END 2020-06-26 09:11 | disposition home or self-care (01) ==
PROVIDERS: PCP Physician Assistant; Visit Provider Physician Assistant
DX: R20.0 Anesthesia of skin (principal); E03.8 Other specified hypothyroidism; Z79.899 Other long term (current) drug therapy; Z13.220 Encounter for screening for lipoid disorders; Z13.1 Encounter for screening for diabetes mellitus; G56.03 Carpal tunnel syndrome, bilateral upper limbs
CPT/HCPCS: 95886; 95911

== ENCOUNTER 2020-08-15 10:02 | Outpatient (CLI) | payer BC, SELFPAY ==
[2020-08-15 10:47] LABS: Add Urine Microscopic? YES; Appearance Urine Clear (Clear); Bilirubin Urine Negative (Negative); Blood Urine 1+ (Negative); Color Urine Yellow (Yellow); Glucose Urine UA Negative (Negative); Ketones Urine Negative (Negative); Leukocyte Esterase Ur Negative LEU/UL (NEGATIVE); Mucus Urine Rare /lpf; Nitrate Urine Negative (Negative); Protein Urine Negative (Negative); RBC Urine 0-2 /hpf (0-2); Specific Grav Ur 1.018 (1.001-1.035); Squamous Epithelial Cell Urine Few /hpf (Few); Urobilinogen Urine Negative mg/dL (<2.0); WBC Urine 0-3 /hpf (0-3)
[2020-08-15 11:09] LABS: Alanine Aminotransferase 14 U/L (4-35); Albumin Level 4.3 g/dL (3.5-5.1); Alkaline Phosphatase 52 U/L (38-126); Anion Gap 7 mmol/L (8-16); Aspartate Amino Transferase 21 U/L (14-36); Bilirubin,Total 0.8 mg/dL (0.2-1.3); Blood Urea Nitrogen 14 mg/dL (7-17); Calcium 9.7 mg/dL (8.4-10.2); Carbon Dioxide 28 mmol/L (22-30); Chloride 101 mmol/L (98-107); Cholesterol 231 mg/dL (0-200); Estimated Glomerular Filt Rate 60; Glucose 93 mg/dL (65-105); HDL Direct 68 mg/dL; Potassium 4.3 mmol/L (3.4-5.0); Sodium 136 mmol/L (137-145); Triglycerides 87 mg/dL (<150)
[2020-08-15 11:14] LABS: Hemoglobin A1C 5.2 % (<5.7)
[2020-08-15 11:21] LABS: LDL Cholesterol Direct 122 mg/dL
== END 2020-08-15 10:03 | disposition home or self-care (01) ==
PROVIDERS: PCP Physician Assistant; Visit Provider Physician Assistant
DX: E03.8 Other specified hypothyroidism (principal); Z79.899 Other long term (current) drug therapy; Z13.220 Encounter for screening for lipoid disorders; Z13.1 Encounter for screening for diabetes mellitus
CPT/HCPCS: 36415; 80053; 80061; 81001; 83036; 84439; 84443

== ENCOUNTER 2020-10-25 16:44 | Outpatient (CLI) | payer BC, SELFPAY ==
--- NOTE | ~2020-10-25 | XR_ITS ---
XR abdomen/kub 1V 10/25/2020 17:00 INDICATION: History of kidney stones TECHNIQUE: KUB COMPARISON: Comparison to multiple prior studies sequentially, with oldest reviewed study dated 02/2020. FINDINGS: Bowel gas pattern is normal. There is no evidence of free air, mass, organomegaly, ascites or obstruction. No abnormal calculi are seen. The bones appear intact. There are pelvic phlebolith s. IMPRESSION: 1: No acute abdominal abnormality identified. Reviewed, dictated and finalized at location A. FEET FINISHER
== END 2020-10-25 16:45 | disposition home or self-care (01) ==
PROVIDERS: PCP Physician Assistant; Visit Provider Urology
DX: N20.0 Calculus of kidney (principal)
CPT/HCPCS: 74018

== ENCOUNTER → 2021-06-02 08:48 | Outpatient (CLI) | payer BC, SELFPAY ==
--- NOTE | ~2021-06-02 | MMUS_ITS ---
EXAMINATION: MM diagnostic nelda BI w kymberly, US breast LT limited HISTORY: Two 1:00 breast masses on 05/07/2014 TECHNIQUE: ML, MLO and craniocaudal 3-D tomosynthesis images of both breasts were performed and [facility] were generated. CAD analysis was submitted and interpreted. High resolution upper out er quadrant left breast ultrasound was performed. COMPARISON: 05/07/2014 bilateral diagnostic mammography and bilateral breast ultrasound BREAST PARENCHYMAL COMPOSITION: There are scattered areas of fibroglandular density. FINDINGS: MAMMOGRAPHIC FINDINGS: Stable mild fibroglandular asymmetry. No suspicious mass, architectural distortion, malignant calcifi cation, skin thickening or retraction of either breast or significant new or developing density since 05/07/2014 is detected. ULTRASOUND: 1:00 4 cm from nipple: 3 x 4.7 mm parallel circumscribed hypoechoic lesion without internal vasculari ty or posterior shadowing, consistent with benign process. The following two lesions likely correspond to lesions reported at 1:00 on the 05/07/2014 examination; these have diminished in size since that time, consistent with benign process, likely benign fibroad enomas: 2:00 5 cm from nipple: 6.6 x 4.6 x 8.2 mm parallel circumscribed hypoechoic lesion without suspicious shadowing. 2:00 6 cm from nipple: 10 x 4.3 x 7.2 mm circumscribed parallel hypoechoic lesion without internal va scularity or posterior shadowing. IMPRESSION: 1. Benign findings 2. Routine mammographic screening is recommended BI-RADS Category 2: Benign finding(s). Reviewed, dictated and finalized at location A. IMPRESSION: 1. Benign findings 2. Routine mammographic screening is recommended BI-RADS Category 2: Benign finding(s).
== END ==
PROVIDERS: Visit Provider Obstetrics & Gynecology Gynecology
DX: R92.8 Other abnormal and inconclusive findings on diagnostic imaging of breast (principal)
CPT/HCPCS: 76642; 77062; 77066; G0279

== ENCOUNTER 2021-08-30 12:04 | Emergency (ER) | payer BC, SELFPAY ==
[2021-08-30] VITALS (56 sets, daily range): BP systolic 112–133; BP diastolic 68–100; PULSE 76–117; RESP 12–24; TEMP 36.2–36.9; O2SAT 90–100
--- NOTE | ~2021-08-30 | CT_ITS ---
EXAMINATION: CT brain wo con EXAM DATE: 08/30/2021 13:20 INDICATION: Neck injury. Asphyxiation. Anoxic brain injury. TECHNIQUE: Spiral CT of the head was performed without contrast. Axial, coronal and sagittal images were reviewed. The dose-length product (DLP) for this examination was 605.33 mGy-cm. The exposure w as tailored according to patient size, and iterative reconstruction (ASIR) was used as additional dos e reduction technique. Comparison is made to prior examination from 09/23/2006. FINDINGS: There is no acute intraparenchymal hemorrhage. No evidence of intraparenchymal brain mass lesion. No evidence of acute infarction. There is no mass effect or midline shift. The ventricles are normal in size. There are no extra-axial collections. There are no acute calvarial fractures. T he orbits are unremarkable. Soft tissue is unremarkable. The visualized sinuses and mastoid air drea ls are well aerated. IMPRESSION: 1. No acute intracranial findings. Reviewed, dictated and finalized at location G. ENSATION AND BENEFITS ADVISOR
--- NOTE | ~2021-08-30 | CT_ITS ---
EXAMINATION: CT soft tissue neck w con EXAM DATE: 08/30/2021 13:21 INDICATION: Neck injury. Asphyxiation. Anoxic brain injury. TECHNIQUE: Spiral CT of the neck was performed following intravenous injection of 75 mL Omnipaque 350 . Axial, coronal and sagittal images were reviewed. The dose-length product (DLP) for this examinat ion was 517.41 mGy-cm. The exposure was tailored according to patient size (auto mA exposure control ), and iterative reconstruction (ASIR) was used as additional dose reduction technique. There is no prior study for comparison. FINDINGS: No acute cervical fracture. The thyroid gland is unremarkable. The submandibular and par otid glands are symmetric. There is no cervical lymphadenopathy. There are no masses identified. The superior mediastinum is unremarkable. The airway is unremarkable. Parapharyngeal and pre-gl ottic fat planes are preserved. The opacified vasculature is patent, no arterial dissection. The orbits are unremarkable. Visualized sinuses and mastoid air cells are well aerated. Lung apices a re clear. IMPRESSION: Normal CT neck examination. No cervical fracture. Reviewed, dictated and finalized at location . CTOR GEOTHERMAL OPERATIONS
--- NOTE | 2021-08-30 12:17 | ECG_ITS ---
Measurements Intervals [place] Rate: 88 P: 157 ID: 131 QRS: 118 QRSD: 85 T: 143 QT: 363 QTc: 441 Interpretive Statements SINUS RHYTHM ARM LEADS REVERSED BASELINE ARTIFACT- I, III, AVL, AVF, V1, V5-V6 ATYPICAL ECG Electronically Signed On 08-30-2021 14:15:30 SODA DRIER FEEDER by Cristi Aggarwal D.O.
--- NOTE | 2021-08-30 12:18 | ED.GENADULT ---
HPI - General Adult General Chief complaint: Trauma <Flex Sanchez MD - Last Filed: 08/31/21 00:05> Stated complaint: attempted hanging <Flex Sanchez MD - Last Filed: 08/31/21 00:05> Time Seen by Provider: 08/30/21 12:11 <Flex Sanchez MD - Last Filed: 08/31/21 00:05> History of Present Illness HPI narrative: 45-year-old female presents the emergency department for evaluation after an intentional hanging. Patient had texted her family at 1117 and at 1127 messages syncopized. came home from work and found the patient hanging in the garage by an extension cord and did cut her down. He stated that the patient was agonal breathing, unresponsive and foaming at the mouth. EMS was called at 1137. Upon arrival to the scene by EMS patient was somnolent but was alert breathing spontaneously. Upon arrival to the Emergency Department patient denies any complaints. Patient does have a slight ligature nunu on her neck. Patient initially stated that she did this because she did not want her family to be unhappy anymore. Patient states she has no prior history of suicide attempt. Patient denies any drugs or alcohol today. Patient denies taking any extra medications. <Flex Sacnhez MD - Last Filed: 08/31/21 00:05> Related Data Home medications: Home Medications Medication Instructions Recorded Confirmed phentermine 37.5 mg PO DAILY 09/21/19 08/31/21 potassium citrate 10 meq PO BID 09/21/19 08/31/21 tramadol 50 - 100 mg PO Q6H PRN 09/21/19 09/27/19 bupropion HCl 150 mg PO DAILY 08/31/21 08/31/21 levothyroxine 88 mcg PO DAILY 08/31/21 08/31/21 ropinirole 2 mg HS 08/31/21 08/31/21 <Flex Sanchez MD - Last Filed: 08/31/21 00:05> Allergies/adverse reactions: Allergies Allergy/AdvReac Type Severity Reaction Status Date / Time No Known Allergies Allergy Verified 08/30/21 16:20 <Flex Sanchez MD - Last Filed: 08/31/21 00:05> Review of Systems Review of Systems: CONSTITUTIONAL: Denies fever, chills, or sweats. EYES: Denies visual changes, redness, or discharge. ENT: Denies rhinorrhea, congestion, sore throat, or otalgia. CARDIOVASCULAR: Denies chest pain, palpitations, or edema. RESPIRATORY: Denies cough or dyspnea. GASTROINTESTINAL: Denies abdominal pain, nausea, vomiting, or diarrhea. GENITOURINARY: Denies dysuria or hematuria. SKIN: Denies rash or itching. MUSCULOSKELETAL: Denies back pain, joint pain, or myalgia. NEUROLOGIC: Denies headache, numbness, or weakness. PSYCHIATRIC: Does report depression and is suicidal. <Flex Sanchez MD - Last Filed: 08/31/21 00:05> [facility] Past Medical History Medical History: Medical History (Updated 08/30/21 @ 23:01 by Flex Sanchez MD) Bronchitis Gastric ulcer GERD (gastroesophageal reflux disease) Graves' disease Hypothyroidism Kidney stones UTI (urinary tract infection) <Flex Sanchez MD - Last Filed: 08/31/21 00:05> Surgical History Surgical History: Surgical History Hx of arthroscopy of right knee x2 Hx of section x3 Hx of lithotripsy Hx of thyroidectomy Hx of tubal ligation <Flex Sanchez MD - Last Filed: 08/31/21 00:05> Family History Family History: Family History Grandparent Hypertension Family history of malignant neoplasm of breast Mother Family history of malignant neoplasm of ovary <Flex Sanchez MD - Last Filed: 08/31/21 00:05> Social History Social History: Social History Smoking status: Never smoker Alcohol intake: current Drinks per week: 0 Substance use: never Substance use type: does not use Gender identity (if verbalized by the patient): Female Spiritual care concerns: No Agree to blood products: Yes <Flex Sanchez MD - Last Filed:
[2021-08-30 12:37] LABS: Basophils Percent Auto 0.2 % (0.2-1.2); Eosinophils Absolute Auto 0.1 K/mm3 (0-0.3); Eosinophils Percent Auto 0.7 % (0-4.4); Hematocrit 41.8 % (37.0-47.0); Hemoglobin 13.7 g/dL (12.0-15.0); Immature Granulocyte Absolute 0.03 K/mm3 (0.00-0.031); Immature Granulocyte Percent A 0.3 % (0-0.5); Lymphocytes Absolute Auto 2.05 K/mm3 (0.9-3.2); Lymphocytes Percent Auto 23.7 % (18.3-44.2); Mean Corpuscular HGB Conc 32.8 g/dl (32-36); Mean Corpuscular Hemoglobin 30.6 pg (26-34); Mean Corpuscular Volume 93.3 fl (80-100); Mean Platelet Volume 9.3 fl (7.4-10.4); Monocytes Absolute Auto 0.5 K/mm3 (0.1-0.6); Monocytes Percent Auto 5.6 % (2.6-8.5); Neutrophils Percent Auto 69.5 % (45.5-73.1); Platelet Count Result 374 k/mm3 (150-375); Red Blood Count 4.48 M/mm3 (4.2-5.4); Red Cell Distribution Width 12.7 % (11.5-14.5); White Blood Count 8.6 K/mm3 (4.5-10.0)
[2021-08-30 12:43] LABS: Alveolar/Arterial O2 Gradient 8.3 mmHg; Base Excess ABG -3.7 mEq/l (+/-2.0); Fractional Inspired Oxygen 21 %; HCO3 ABG 20.7 mEq/l (22.0-26.0); Oxygen Content ABG 18.7 %vol (16.0-22.0); Oxygen Saturation ABG 97.4 % (95.0-100.0); Oxyhemoglobin 96.6 % THb (90.0-100.0); PCO2 ABG 35.6 mmHg (35.0-45.0); PO2 ABG 98.8 mmHg (80.0-100.0); Total Hemoglobin 13.7 g/dL (12.0-18.0); pH ABG 7.383 (7.350-7.450)
[2021-08-30 12:44] LABS: Device ROOM AIR; Modified Allen's Test Pass; Site Drawn RIGHT RADIAL
[2021-08-30 12:55] LABS: Barbiturate Screen Urine Negative (Negative); Benzodiazepines Screen Urine Negative (Negative)
[2021-08-30 12:57] LABS: Alanine Aminotransferase 17 U/L (4-35); Albumin Level 4.3 g/dL (3.5-5.1); Alkaline Phosphatase 53 U/L (38-126); Anion Gap 13 mmol/L (8-16); Aspartate Amino Transferase 22 U/L (14-36); Bilirubin,Total 0.9 mg/dL (0.2-1.3); Blood Urea Nitrogen 14 mg/dL (7-17); Calcium 9.4 mg/dL (8.4-10.2); Carbon Dioxide 18 mmol/L (22-30); Chloride 104 mmol/L (98-107); Estimated CRCL calculation 58 ml/min; Estimated Glomerular Filt Rate 54; Glucose 131 mg/dL (65-110); Magnesium 1.9 mg/dL (1.6-2.3); Potassium 3.7 mmol/L (3.4-5.0); Sodium 135 mmol/L (137-145)
[2021-08-30 12:59] LABS: Add Urine Microscopic? YES; Appearance Urine Turbid (Clear); Bacteria Urine Trace /hpf; Bilirubin Urine Negative (Negative); Blood Urine Negative (Negative); Color Urine Yellow (Yellow); Glucose Urine UA Negative (Negative); Ketones Urine Negative (Negative); Leukocyte Esterase Ur Negative LEU/UL (Negative); Mucus Urine Heavy /lpf; Nitrate Urine Negative (Negative); Protein Urine 3+ mg/dL (Negative); RBC Urine 21-50 /hpf (0-2); Squamous Epithelial Cell Urine Moderate /hpf (Few); Urobilinogen Urine Negative mg/dL (<2.0); WBC Urine 51-75 /hpf
[2021-08-30 13:07] LABS: Specific Grav Ur 1.031 (1.001-1.035)
[2021-08-30 13:09] LABS: Acetaminophen < 10 ug/mL (10-30)
[2021-08-30 13:12] LABS: Ethanol < 10 mg/dL (<10); Salicylate < 1.0 mg/dL (2-20)
[2021-08-30 13:25] LABS: Amphetamine Screen Urine Positive (Negative); Cannabinoid Screen Urine Negative (Negative); Cocaine Screen Urine Negative (Negative); Methadone Screen Urine Negative (Negative); Opiate Screen Urine Negative (Negative); Phencyclidine Screen Urine Negative (Negative)
[2021-08-30 13:35] LABS: SARS-CoV-2 RNA PCR Negative
--- NOTE | 2021-08-30 17:29 | PC.NURSE ---
Patient's dinner ordered at this time.
--- NOTE | 2021-08-30 19:46 | PC.NURSE ---
Report received from DOROTEO Talbot. Assumed care of patient at this time. Sitter at bedside.
[2021-08-31] VITALS (73 sets, daily range): BP systolic 102–131; BP diastolic 64–82; PULSE 74–130; RESP 9–24; TEMP 36.4; O2SAT 96–100
[2021-08-31] MEDS: rOPINIRole HCL 1 MG TABLET 2 MG PO (00:47)
--- NOTE | 2021-08-31 05:43 | PC.NURSE ---
0539 Opal from [facility] intake calls to get update on patient. She states she will present the information to the doctor and call back.
[2021-08-31] MEDS: LEVOTHYROXINE SODIUM 88 MCG TABLET PO (09:09)
[2021-08-31] MEDS: buPROPion HCL XL (24 HR) 150 MG TABCR PO (09:10)
--- NOTE | 2021-08-31 11:15 | PC.NURSE ---
Patient care report received from DOROTEO Moura. All questions answered at this time.
--- NOTE | 2021-08-31 12:51 | PC.NURSE ---
Pt low risk for SI. States that she only attempted to hang herself to gain attention from her . She states she didnt intend for it to actually work. EDP notified. Yasmanyter to remain at bedside at this time.
--- NOTE | 2021-08-31 13:03 | PC.NURSE ---
Patient taken to shower by ED neurodiagnostic technician and security. Instructed security and ED neurodiagnostic technician to not leave patient alone at anytime and to keep watching the patient the entire time.
--- NOTE | 2021-08-31 13:05 | PC.NURSE ---
Patient bed linens changed by another ED library information technician while patient is off the floor showering with ED library information technician and security.
--- NOTE | 2021-08-31 13:25 | PC.NURSE ---
Patient ambulated back from shower with ED retail maintenance technician and security. Patient returned to her room at this time, regional safety manager at bedside.
--- NOTE | 2021-08-31 14:49 | PC.NURSE ---
Updated forms re-faxed to [facility] at 1446 and confirmed on fax machine it was sent okay.
--- NOTE | 2021-08-31 16:35 | PC.NURSE ---
Lion Hunter to patient's bedside to discuss admission to [facility] and to have patient sign voluntary admission forms. Patient became tearful upon keno writer/runner talking to her about [facility] admission. Patient reports she does not want to go to [facility] because it is 2 hours away. Patient's at bedside while keno writer/runner talking to patient. Lion Hunter explained admission process and care that would be received at [facility]. Patient stating, I don't want to be admitted anywhere, I want to go home. I wasn't trying to hurt myself, I was just trying to get my 's attention because we have been fighting alot lately. Lion Hunter explained that due to mechanism of hanging herself with an extension cord, with feet off the ground, ligature washburn to her neck, and having to be cut down by family that her actions were serious and could of ended her life if family had not found her in time. Patient became tearful and said I just wanted my 's attention. Lion Hunter explained that if she did not want to go voluntarily to [facility] that keno writer/runner would contact Crisis regarding other plan. Lion Hunter explained that she would call crisis as patient refused to sign voluntary papers for [place]. Lion Hunter then left bedside with safety instructor at bedside and at bedside.
--- NOTE | 2021-08-31 19:59 | PC.NURSE ---
dam worker, Moses here to evaluate patient. Dr. Villa aware and spoke to Moses.
--- NOTE | 2021-08-31 20:06 | PC.NURSE ---
Moses, die try out worker at bedside to re-assess patient at this time. Yasmanyter remains at bedside.
--- NOTE | 2021-08-31 23:30 | PC.NURSE ---
Pt arrived s/p attempting to hang herself with visible ligature washburn to neck. Pt now DENIES SI/HI/AH/VH. However, pt refused initial placement and is currently INVOLUNTARY per ED MD Aviles and crisis paperwork. Tearful, yelling at this RN that it's not fair that no one told me and now I have no rights . Sitter at bedside for pt safety and elopement risk. ED MD Aviles aware.
--- NOTE | 2021-08-31 23:50 | PC.NURSE ---
All requested documents printed and referral form filled out completely. Packet given to ED secretary to the vice president to fax to [facility] as requested to: [phone].
[2021-09-01] VITALS: PULSE 97; RESP 23; O2SAT 98
[2021-09-01 00:18] VITALS: PULSE 97; RESP 26; O2SAT 98
--- NOTE | 2021-09-01 00:50 | PC.NURSE ---
Pt vehemently denies refusing to go to [facility]. This RN and ED MD Aviles in room to speak to pt and , who is at her bedside. sandblasting supervisor and ED battery charger tester also aware that pt wants to speak to them, as well as pt advocate. On this RN's arrival, daysvaft RN giving me report told pt that she was now involuntary, which caused pt to become tearful. pt reports she does not understand why she was made INVOLUNTARY, when she was willing to be a voluntary admit to [facility]. Pt repeating It's not right. It's just not right. What rights do I have as a patient? Pt's continuing to agree with pt that prior shift did NOT inform her that she was possibly going to be made involuntary, and now pt is willing to go to [facility] voluntarily. This RN has called to speak with Moses, crisis fast food worker with [facility] who filled out involuntary petition, but another chestnut worker Cortes informed this RN that pt was made involuntary to ensure she would cooperate with inpatient placement. Pt wanted to know if she could still go to [facility] voluntarily, but bed not available and pt status cannot changed at this time. Cortes suggests to continue with faxing chart to facilities, and if at 0700 if pt not accepted, call crisis back for potential reassessment.
--- NOTE | 2021-09-01 01:53 | PC.NURSE ---
Pt currently appears asleep on stretcher. Resps even,nonlabored, regular. no s/s of distress. has gone home. Sitter at bedside.
--- NOTE | 2021-09-01 02:00 | PC.NURSE ---
Pt updated that the plan is to wait for shift change and if she has not been accepted to any of the facilities where pt's info has been faxed, ED staff can call crisis for potential reassessment. This RN clearly informed pt that this did not mean her status would change from involuntary to voluntary, or that she would go home. Pt verbalized understanding that this only means that another crisis c 40a crew chief may be sent to ED to reevaluate her. ED charge nurse and ED MD notified. Yasmanyter remains at bedside.
[2021-09-01] MEDS: rOPINIRole HCL 1 MG TABLET 2 MG PO (02:05)
--- NOTE | 2021-09-01 02:20 | PC.NURSE ---
[facility] confirms receipt of faxed copy of pt's chart. Will review chart and get back to us.
--- NOTE | 2021-09-01 03:16 | PC.NURSE ---
Pt moved to ED 9 from ED 11 after this RN had given report to oncoming RN.
--- NOTE | 2021-09-01 04:51 | PC.NURSE ---
spoke with Matthew from [facility], they request a TSH to be faxxed over and the CT report.
--- NOTE | 2021-09-01 06:48 | PC.NURSE ---
TSH and CT report faxxed to [facility] at this time.
--- NOTE | 2021-09-01 07:59 | PC.NURSE ---
meal tray ordered.
[2021-09-01 08:09] VITALS: BP 131/68; PULSE 90; RESP 20; TEMP 36.6; O2SAT 98
--- NOTE | 2021-09-01 08:19 | PC.NURSE ---
Chart faxed to [facility] for placement.
[2021-09-01] MEDS: buPROPion HCL XL (24 HR) 150 MG TABCR PO (08:52)
[2021-09-01] MEDS: LEVOTHYROXINE SODIUM 88 MCG TABLET PO (08:52)
--- NOTE | 2021-09-01 10:00 | PC.NURSE ---
patient accepted by [facility] by Dr Joseph. room 5310A. Call report to [phone]
[2021-09-01] MEDS: POTASSIUM CITRATE 5 MEQ TAB CR 10 MEQ PO (10:03)
--- NOTE | 2021-09-01 10:04 | PC.NURSE ---
made contact with [facility] to transfer pt to [facility]. company accepted with an eta [id number]
--- NOTE | 2021-09-01 10:32 | PC.NURSE ---
derrick has arrived and is aware that pt is going to [facility]
[2021-09-01 10:45] VITALS: BP 138/74; PULSE 87; RESP 18; TEMP 36.6; O2SAT 98
== END 2021-09-01 10:38 ==
PROVIDERS: Emergency Medicine; Emergency Provider Emergency Medicine
DX: T71.162A Asphyxiation due to hanging, intentional self-harm, initial encounter (principal); K21.9 Gastro-esophageal reflux disease without esophagitis; Z20.822 Contact with and (suspected) exposure to COVID-19; E05.00 Thyrotoxicosis with diffuse goiter without thyrotoxic crisis or storm; Z87.442 Personal history of urinary calculi; Z87.440 Personal history of urinary (tract) infections; E89.0 Postprocedural hypothyroidism
CPT/HCPCS: 36415; 36600; 51701; 70450; 70491; 80053; 80307; 81001; 82805; 83735; 84443; 85025; 87086; 93005; 99285; A9270; C9803; Q9967; U0003; U0005

== ENCOUNTER 2022-04-25 10:40 | Outpatient (CLI) | payer BC, SELFPAY ==
[2022-04-25 11:46] LABS: Basophils Percent Auto 0.2 % (0.2-1.2); Eosinophils Absolute Auto 0.1 K/mm3 (0-0.3); Hemoglobin 13.5 g/dL (12.0-15.0); Immature Granulocyte Absolute 0.02 K/mm3 (0.00-0.031); Immature Granulocyte Percent A 0.3 % (0-0.5); Lymphocytes Absolute Auto 1.65 K/mm3 (0.9-3.2); Mean Corpuscular HGB Conc 32.1 g/dl (32-36); Mean Corpuscular Hemoglobin 29.8 pg (26-34); Mean Corpuscular Volume 92.7 fl (80-100); Mean Platelet Volume 9.6 fl (7.4-10.4); Monocytes Absolute Auto 0.5 K/mm3 (0.1-0.6); Neutrophils Absolute Auto 3.8 K/mm3 (1.3-6.7); Neutrophils Percent Auto 62.5 % (45.5-73.1); Platelet Count Result 368 k/mm3 (150-375); Red Blood Count 4.53 M/mm3 (4.2-5.4); Red Cell Distribution Width 13.1 % (11.5-14.5); White Blood Count 6.1 K/mm3 (4.5-10.0)
[2022-04-25 11:55] LABS: Alanine Aminotransferase 24 U/L (6-35); Albumin Level 4.4 g/dL (3.5-5.1); Alkaline Phosphatase 56 U/L (38-126); Anion Gap 13 mmol/L (8-16); Aspartate Amino Transferase 26 U/L (14-36); Blood Urea Nitrogen 17 mg/dL (7-17); Calcium 8.9 mg/dL (8.4-10.2); Carbon Dioxide 25 mmol/L (22-30); Chloride 101 mmol/L (98-107); Cholesterol 238 mg/dL (0-200); Estimated Glomerular Filt Rate 53; Glucose 92 mg/dL (65-110); HDL Direct 67 mg/dL; Potassium 4.2 mmol/L (3.4-5.0); Sodium 139 mmol/L (137-145); Triglycerides 64 mg/dL (<150)
[2022-04-25 12:06] LABS: LDL Cholesterol Direct 121 mg/dL
[2022-04-25 12:36] LABS: Appearance Urine Clear (Clear); Bilirubin Urine Negative (Negative); Blood Urine Negative (Negative); Color Urine Yellow (Yellow); Glucose Urine UA Negative (Negative); Ketones Urine Negative (Negative); Leukocyte Esterase Ur Negative LEU/UL (Negative); Nitrate Urine Negative (Negative); Protein Urine 1+ mg/dL (Negative); Specific Grav Ur 1.015 (1.001-1.035); Urobilinogen Urine 0.2 mg/dL (<2.0); pH Urine 8.5 (5.0-9.0)
[2022-04-25 13:05] LABS: Hemoglobin A1C 5.2 % (<5.7)
[2022-04-25 13:21] LABS: Free T4 Free Thyroxine 1.25 ng/mL (0.78-2.19)
[2022-04-25 13:28] LABS: Bacteria Urine Trace /hpf; Mucus Urine Rare /lpf; RBC Urine 0-2 /hpf (0-2); Squamous Epithelial Cell Urine Few /hpf (Few); WBC Urine 0-3 /hpf
[2022-04-25 13:31] LABS: Add Urine Microscopic? YES
[2022-04-28 12:50] LABS: DHEA-Sulfate 125 mcg/dL (19-231); Insulin Level Total 3.1 uIU/mL (<=19.6)
[2022-04-29 10:09] LABS: FSH 5.6 mIU/mL (***); Progesterone 0.7 ng/mL (***); Prolactin 7.7 ng/mL (***)
[2022-04-29 10:09] LABS: Triiodothyronine T3 Free 2.4 pg/mL (2.3-4.2)
[2022-05-01 00:31] LABS: Testosterone Total 14 ng/dL (2-45)
== END 2022-04-25 10:41 | disposition home or self-care (01) ==
PROVIDERS: PCP Physician Assistant; Visit Provider Nurse Practitioner
DX: N91.2 Amenorrhea, unspecified (principal); E03.9 Hypothyroidism, unspecified; Z13.220 Encounter for screening for lipoid disorders; Z13.1 Encounter for screening for diabetes mellitus; Z79.899 Other long term (current) drug therapy
CPT/HCPCS: 36415; 80053; 80061; 81001; 82627; 83001; 83002; 83036; 83525; 84144; 84146; 84403; 84439; 84443; 84481; 85025

== ENCOUNTER 2022-05-02 09:27 | Outpatient (CLI) | payer BC, SELFPAY ==
--- NOTE | ~2022-05-02 | XR_ITS ---
EXAM: XR abdomen/kub 1V DATE: 05/02/2022 09:39 HISTORY: RT KIDNEY STONES . COMPARISON: 10/25/2020. FINDINGS: Clear lung bases. Normal bowel gas pattern. No organomegaly. Pelvic phleboliths. Regional bones and soft tissues normal for age. IMPRESSION: No acute abdominal radiograph finding. Reviewed, dictated and finalized at location K.
== END 2022-05-02 09:28 | disposition home or self-care (01) ==
PROVIDERS: PCP Physician Assistant; Visit Provider Urology
DX: N20.0 Calculus of kidney (principal)
CPT/HCPCS: 74018

== ENCOUNTER → 2022-08-03 11:02 | Outpatient (CLI) | payer BC, SELFPAY ==
--- NOTE | ~2022-08-03 | MM_ITS ---
EXAMINATION: MM screening nelda BI w kymberly HISTORY: Screening TECHNIQUE: Craniocaudal and mediolateral oblique 3-D tomosynthesis images were obtained and synthetic 2-D images were generated. CAD analysis was submitted and interpreted. COMPARISON: Comparison to multiple prior studies sequentially, with oldest reviewed study dated 05/07. BREAST PARENCHYMAL COMPOSITION: The breasts are heterogeneously dense, which may obscure small masses . FINDINGS: There is no evidence of suspicious mass, calcification, or architectural distortion to sugg est malignancy in either breast. There has been no suspicious interval change. IMPRESSION: 1. No mammographic evidence of malignancy. 2. Recommend routine screening mammography in one year. BI-RADS Category 1: Negative Reviewed, dictated and finalized at location A. E FORMING MACHINE OPERATOR
== END ==
PROVIDERS: PCP Physician Assistant; Visit Provider Nurse Practitioner
DX: Z12.31 Encounter for screening mammogram for malignant neoplasm of breast (principal)
CPT/HCPCS: 77063; 77067

== ENCOUNTER 2023-02-15 07:25 | Outpatient (CLI) | payer BC, SELFPAY ==
--- NOTE | ~2023-02-15 | CT_ITS ---
EXAMINATION: CT abdomen wo/w con DATE: 02/15/2023 08:05 INDICATION: Hydroureter TECHNIQUE: Computed tomography (CT) of the abdomen was performed without and with 100 mL Omnipaque-35 0 intravenous contrast. Automated exposure control and iterative reconstruction technique were employ ed. The dose-length product was 746.67 mGy-cm. COMPARISON: 09/27/2019 FINDINGS: Lung bases are clear. Heart size is normal. No pericardial or pleural effusion. Liver, gallbladder, s pleen, pancreas, bilateral adrenal glands are normal. 2 mm nonobstructing stone at the interpolar reg ion of the right kidney. No stone seen at the left kidney or along the visualized portions of the elba ateral ureters. No hydronephrosis or hydroureter. Symmetric bilateral renal enhancement. Visualized p ortions of the bowels including the appendix are normal. Small fat-containing umbilical hernia. Mild lower thoracic spondylosis. IMPRESSION: 1. 2 mm nonobstructing right renal stone. Reviewed, dictated and finalized at location D.
[2023-02-15 07:57] LABS: Estimated Glomerular Filt Rate 48
== END 2023-02-15 07:26 | disposition home or self-care (01) ==
PROVIDERS: PCP Physician Assistant; Referring Provider Urology; Visit Provider Physician Assistant
DX: N13.4 Hydroureter (principal); N20.0 Calculus of kidney
CPT/HCPCS: 74170; Q9967

== ENCOUNTER 2023-05-12 09:30 | Outpatient (CLI) | payer BC, SELFPAY ==
[2023-05-12 10:31] LABS: Creatinine Urine 184.8 mg/dL
[2023-05-12 10:38] LABS: Alanine Aminotransferase 19 U/L (6-35); Albumin Level 4.4 g/dL (3.5-5.1); Alkaline Phosphatase 73 U/L (38-126); Anion Gap 8 mmol/L (8-16); Aspartate Amino Transferase 22 U/L (14-36); Blood Urea Nitrogen 14 mg/dL (7-17); Calcium 9.5 mg/dL (8.4-10.2); Carbon Dioxide 26 mmol/L (22-30); Chloride 101 mmol/L (98-107); Cholesterol 238 mg/dL (0-200); Estimated Glomerular Filt Rate 59; Glucose 91 mg/dL (65-110); HDL Direct 58 mg/dL; Potassium 3.9 mmol/L (3.4-5.0); Sodium 135 mmol/L (137-145); Triglycerides 98 mg/dL (<150)
[2023-05-12 10:45] LABS: Complement C3 134 mg/dL (88-165)
[2023-05-12 10:49] LABS: LDL Cholesterol Direct 118 mg/dL
[2023-05-12 11:03] LABS: Free T4 Free Thyroxine 1.82 ng/mL (0.78-2.19)
[2023-05-12 11:10] LABS: Total Protein Urine Random < 5 mg/dL; Ur Ttl Prot Creatinine Ratio < 0.03 mg/mg (0-0.20)
[2023-05-15 13:08] LABS: Albumin 4.1 g/dL (3.8-4.8); Alpha 1 Globulin 0.3 g/dL (0.2-0.3); Alpha 2 Globulin 0.9 g/dL (0.5-0.9); Beta 1 Globulin 0.5 g/dL (0.4-0.6); Gamma Globulin 1.4 g/dL (0.8-1.7); Protein, Total 7.6 g/dL (6.1-8.1)
[2023-05-16 11:19] LABS: Anti Glomerular Basement Memb <1.0 AI (<1.0)
[2023-05-19 21:56] LABS: Creatinine, Random Urine 183 mg/dL (20-275); Total Protein/Creatinine Ratio 77 mg/g creat (24-184)
[2023-05-20 15:16] LABS: ANCA Screen ATYP P-ANCA POS (Negative); Atyp PANCA Ttr Reflex Chg Test YES; Atypical P-ANCA Titer 1:20 Titer (<1:20)
== END 2023-05-12 09:31 | disposition home or self-care (01) ==
PROVIDERS: PCP Physician Assistant; Referring Provider Physician Assistant; Visit Provider Internal Medicine Nephrology
DX: N20.0 Calculus of kidney (principal); N28.9 Disorder of kidney and ureter, unspecified; E03.9 Hypothyroidism, unspecified; E78.5 Hyperlipidemia, unspecified
CPT/HCPCS: 36415; 80053; 80061; 82570; 83520; 84100; 84155; 84156; 84165; 84166; 84439; 84443; 86036; 86038; 86160; 86225

== ENCOUNTER 2023-05-24 00:38 | Day surgery (SDC) | payer BC, SELFPAY ==
[2023-05-20 08:39] VITALS: BMI 33.2
--- NOTE | 2023-05-20 08:45 | PC.NURSE ---
Report to the Outpatient Waiting Room, entrance under the green pavilion located off [facility], at time 7:00 on date 05/24/23. Planned Procedure Time: 9:00. Time changes happen often and if your time is changed the preop area will call you the afternoon before. - You and your visitor will be asked to self-screen and do not enter if you have any COVID symptoms. - A mask is optional within the hospital at this time. Patients may have clear liquids (water, carbonated beverages, clear teas, apple juice) until 3 hours prior to surgery (6:00) with a maximum of 20 ounces. - No food from midnight until time of surgery Take the following medications with a SIP of water the morning of surgery: LEVOTHYROXINE DO NOT STOP ANY OF YOUR OTHER PRESCRIPTION MEDICATIONS PRIOR TO SURGERY ?EXCEPT THE FOLLOWING Medications to discontinue per physician: N/A Date to take last dose: N/A Please no make-up, nail greenlandic, hairspray, perfume, deodorant, or body powder the day of surgery. No jewelry (including any body piercings) or valuables the day of surgery, leave them at home. Please take a shower or bath the night before, or the morning of, surgery with an antibacterial soap. Wear comfortable, loose fitting clothing. - Jewelry must be removed prior to entering the operating room. Rings and piercings that are not removed may be cut off. - The hospital will not accept responsibility for valuables. - Please leave all valuables, including medications, at home the day of surgery. If you are going home after surgery, a licensed local truck driver must drive you home. - NO public transportation without another adult if you receive anesthesia. - We recommend that an adult stay with you for 24 hours following discharge. - We also recommend that you do not drive, make important decision, drink alcoholic beverages, or take any drugs that were not prescribed by your health care provider for at least 24 hours after your discharge time. Follow any additional instructions given to you from your surgeon. If you or anyone in your household have experienced Covid symptoms in the past week, please notify your surgeon or the nurse liaison at the phone number below for possible testing. Telephone instructions given to PT - AMADA CASTLE and asked if any additional questions and then verbalized understanding. Patient advised to call surgeon office or pre surgery nurse liaison [phone] if any additional questions.
--- NOTE | 2023-05-24 07:43 | WPDHPUPDATE1 ---
History and Physical Update Update Date/Time: 05/24/23 07:43 History and Physical has been reviewed, including an updated exam of the patient. There are NO changes in the patient's condition. Risks, benefits, and alternatives have been discussed and questions answered. Patient agrees to proceed with procedure.
--- NOTE | 2023-05-24 07:43 | PM.HPGS ---
History of Present Illness History of Present Illness Consent: Risks, benefits, and alternatives have been discussed and questions answered. Patient agrees to proceed with procedure. Chief complaint: menorrhagia Narrative: Carrie Ca is a 47 year old female with the onset of heavy cycles. Patient is changing a super tampon every hour for days 1 and 2 of her cycle. It was recommended to proceed with workup including D&C hysteroscopy. Risks of infection, bleeding, perforation, and possible pathology are reviewed. Patient voices understanding and agrees to proceed. Review of Systems Review of Systems: not repeated day of surgery; patient states no changes in status [facility] Past Medical History Medical History (Updated 05/24/23 @ 07:48 by Jessica Epstein MD) Bronchitis Chronic renal failure (CRF), stage 3 (moderate) Gastric ulcer GERD (gastroesophageal reflux disease) Graves' disease Hypothyroidism Kidney stones UTI (urinary tract infection) Surgical History Surgical History (Updated 05/24/23 @ 07:47 by Jessica Epstein MD) History of carpal tunnel release Bilateral 2021 History of hysteroscopy 2019 with benign findings Hx of arthroscopy of right knee x2 Hx of section x3 Hx of lithotripsy Hx of thyroidectomy Hx of tubal ligation Family History Family History Grandparent Hypertension Family history of malignant neoplasm of breast Mother Family history of malignant neoplasm of ovary Social History Social History (Updated 03/23/23 @ 14:20 by Rita Lafleur MA) Smoking status: Never smoker Alcohol intake: never Drinks per week: 0 Substance use: never Substance use type: does not use Lack of Transportation: No Lack of Food: Never True Current Housing: I Have Housing Concerned About Future Housing: No Difficulty Paying Gas/Electric Bills: No Difficulty Paying for Meds: No Currently Unemployed: No Education: Decline to Answer Difficulty w/ Childcare or Family Care: No Living arrangements: with family Gender identity (if verbalized by the patient): Female Spiritual care concerns: No Agree to blood products: Yes Meds Home Medications and Allergies Home Medications Medication Instructions Recorded Confirmed Type phentermine 37.5 mg tablet 37.5 mg PO DAILY 09/21/19 05/20/23 History potassium citrate 10 mEq (1,080 10 meq PO BID 09/21/19 05/20/23 History mg) tablet,extended release ropinirole 1 mg tablet 2 mg HS 08/31/21 05/20/23 History levothyroxine 88 mcg tablet 100 mcg PO DAILY 03/23/23 05/20/23 History Allergies Allergy/AdvReac Type Severity Reaction Status Date / Time No Known Allergies Allergy Verified 05/20/23 08:38 Exam Const: General: healthy appearing and alert Orientation/consciousness: patient oriented x3 Resp: Effort & Inspection: normal respiratory effort GI: GI Palp: Yes Soft to palpation, No Tenderness to palpation present (GI) and No Palpable mass present : External Female Exam: normal external appearance Speculum Exam - Vagina: normal appearance of the vagina and normal vaginal discharge Speculum Exam - Cervix: normal appearance of the cervix (Difficult to visualize in the office) Bimanual exam- vagina & uterus: uterine size normal and consistency normal Bimanual Exam- Adnexa, other: normal adnexae and No adnexal tenderness Neuro: General: patient oriented x3 Assessment and Plan Assessment and plan (1) Menorrhagia: Code(s): N92.0 - Excessive and frequent menstruation with regular cycle Status: Acute Assessment and Plan: Plan to proceed with D&C hysteroscopy
[2023-05-24] MEDS: ACETAMINOPHEN 500 MG TABLET 1000 MG PO (08:00)
--- NOTE | 2023-05-24 08:14 | P.PNAN_ITS ---
Anes - Initial Pre Proc Eval Procedure: Operation Date: 05/24/23 09:00 Proposed Procedures p Hysteroscopy, Dilation and Curettage - Jessica Epstein MD Date/Time: 05/24/23 08:14 Surgeon: Jessica Epstein MD Pre Op Diagnosis: menorrhagia Patient Data Age: 47 Gender: F Height: 1.52 m Weight: 77.11 kg Allergies Allergy/AdvReac Type Severity Reaction Status Date / Time No Known Allergies Allergy Verified 05/24/23 07:48 Home Medications Medication Instructions Recorded Confirmed Type phentermine 37.5 mg tablet 37.5 mg PO DAILY 09/21/19 05/24/23 History potassium citrate 10 mEq (1,080 10 meq PO DAILY 09/21/19 05/24/23 History mg) tablet,extended release ropinirole 1 mg tablet 2 mg HS 08/31/21 05/24/23 History levothyroxine 88 mcg tablet 100 mcg PO DAILY 03/23/23 05/24/23 History Patient hx anesthesia problems: none Family hx anesthesia problems: none Results Review: All pre-operative results and documents have been reviewed as part of the pre-operative evaluation. [facility] Past Medical History Medical History Bronchitis Chronic renal failure (CRF), stage 3 (moderate) Gastric ulcer GERD (gastroesophageal reflux disease) Graves' disease Hypothyroidism Kidney stones UTI (urinary tract infection) Surgical History Surgical History History of carpal tunnel release Bilateral 2021 History of hysteroscopy 2019 with benign findings Hx of arthroscopy of right knee x2 Hx of section x3 Hx of lithotripsy Hx of thyroidectomy Hx of tubal ligation Family History Family History Grandparent Hypertension Family history of malignant neoplasm of breast Mother Family history of malignant neoplasm of ovary Social History Social History Smoking status: Never smoker Alcohol intake: never Drinks per week: 0 Substance use: never Substance use type: does not use Lack of Transportation: No Lack of Food: Never True Current Housing: I Have Housing Concerned About Future Housing: No Difficulty Paying Gas/Electric Bills: No Difficulty Paying for Meds: No Currently Unemployed: No Education: Decline to Answer Difficulty w/ Childcare or Family Care: No Living arrangements: with family Gender identity (if verbalized by the patient): Female Spiritual care concerns: No Agree to blood products: Yes Anes - Eval Final PreProcedure Day of Procedure 05/24/23 08:14 Patient weight: obese Heart: regular rate and rhythm Lungs: clear to auscultation Airway: Mallampati scale class II Neurological: alert and oriented Last oral intake: >/= 8 hours ASA classification: II Emergent: no Anesthetic plan: proceed Anesthesia type and monitoring: general GIVS and standard monitoring Results Review: All pre-operative results and documents have been reviewed as part of the pre- operative evaluation. Informed Consent: The patient's anesthetic plan and its attendant risks and benefits were discussed with the patient/family/POA. Questions were solicited and answers provided to the satisfaction of the patient/family/POA.
[2023-05-24 08:28] LABS: INR 0.9; Prothrombin Time 12.6 Seconds (11.1-14.7)
[2023-05-24 08:30] LABS: Partial Thromboplastin Time 29.3 SECONDS (22.3-36.8)
[2023-05-24] MEDS: LACTATED RINGERS 1,000 ML 30 ML IV CONT (08:45)
[2023-05-24 08:48] VITALS: BP 130/89; PULSE 103; RESP 18; TEMP 37.1; O2SAT 97; BMI 32.6
--- NOTE | 2023-05-24 09:34 | W.PM.PROC2 ---
Procedure Note - Detailed Date of Procedure 05/24/23 Pre-op Diagnosis menorrhagia Post-op Diagnosis Same Procedure Performed D&C hysteroscopy Surgeon Jessica Epstein MD Anesthesia MAC Findings The cervix is very stenotic. The uterus is very anteverted and measures 12cm by sound. The endometrium appears grossly normal. Due to the severely anteverted uterus, she would be a poor candidate for an IUD or an endometrial ablation. Description of Procedure The patient is taken to the operating room and placed under anesthesia in the dorsal lithotomy position. She was prepped and draped in usual sterile fashion. Cervix is not visible with the standard Graves speculum. A large Graves speculum was placed and the posterior rectocele is displaced with a ring forcep allowing minimal visualization of the cervix. The cervix is able to be grasped with a tenaculum on the anterior lip and pulled into the surgical field. The external os is visible as a dimple only. The cervix is serially dilated with difficulty to a 6 Hegar. The diagnostic hysteroscope was placed and the cavity is noted to be very anteverted with the camera being placed at approximately a 90 degree angle from the floor. The cavity appears grossly normal therefore the hysteroscope was removed. The uterus is sounded to 12cm. The OO sharp curette is used to curette the endometrium until a good uterine cry was noted in all areas. All instruments are removed. Estimated Blood Loss 5 Drains No Packing No Pathology Yes Complications No immediate complications Condition Stable Disposition PACU
[2023-05-24 09:37] VITALS: BP 121/72; PULSE 86; RESP 14; O2SAT 96
[2023-05-24 10:05] VITALS: BP 135/80; PULSE 71; RESP 16
[2023-05-24] MEDS: fentaNYL CITRATE INJ (*CRX) 100 MCG/2 ML VIAL 25 MCG IV PUSH (10:09)
[2023-05-24] MEDS: oxyCODONE HCL (*CRX) 5 MG TAB IR PO (10:13)
[2023-05-24 10:35] VITALS: BP 132/73; PULSE 64; RESP 16
== END 2023-05-24 10:45 | disposition home or self-care (01) ==
PROVIDERS: Anesthesiology; PCP Physician Assistant; Visit Provider Obstetrics & Gynecology Gynecology
PROC: 0U5B8ZZ Destruction of Endometrium, Via Natural or Artificial Opening Endoscopic (ICD-10-PCS; CPT 58563; principal; 2023-05-24 09:00)
DX: N92.0 Excessive and frequent menstruation with regular cycle (principal); N81.6 Rectocele; N18.30 Chronic kidney disease, stage 3 unspecified; K21.9 Gastro-esophageal reflux disease without esophagitis; E05.00 Thyrotoxicosis with diffuse goiter without thyrotoxic crisis or storm; E03.9 Hypothyroidism, unspecified; Z80.3 Family history of malignant neoplasm of breast; Z80.41 Family history of malignant neoplasm of ovary; E66.9 Obesity, unspecified; Z68.32 Body mass index [BMI] 32.0-32.9, adult
CPT/HCPCS: 58558; 36415; 85610; 85730; 88305; A9270; J1885; J2250; J2405; J2704; J3010; J7120

== ENCOUNTER 2023-11-22 15:50 | Outpatient (CLI) | payer BC, SELFPAY ==
[2023-11-22 16:42] LABS: Albumin Level 4.2 g/dL (3.5-5.1); Anion Gap 3 mmol/L (4-12); Blood Urea Nitrogen 14 mg/dL (7-17); Calcium 9.8 mg/dL (8.4-10.2); Carbon Dioxide 31 mmol/L (22-30); Chloride 102 mmol/L (98-107); Estimated Glomerular Filt Rate 48; Glucose 78 mg/dL (65-110); Phosphorus 3.4 mg/dL (2.5-4.5); Sodium 136 mmol/L (137-145)
[2023-11-22 17:26] LABS: Creatinine Urine 106.7 mg/dL; Total Protein Urine Random 6 mg/dL; Ur Ttl Prot Creatinine Ratio 0.06 mg/mg (0-0.20)
== END 2023-11-22 15:51 | disposition home or self-care (01) ==
LOC: ANHLAB 15:51
PROVIDERS: PCP Physician Assistant; Visit Provider Internal Medicine Nephrology
DX: N28.9 Disorder of kidney and ureter, unspecified (principal); N20.0 Calculus of kidney
CPT/HCPCS: 36415; 80069; 82570; 84156

== ENCOUNTER 2024-02-08 09:54 | Outpatient (CLI) | payer BC, SELFPAY ==
[2024-02-08 10:16] LABS: Basophils Percent Auto 0.1 % (0.2-1.2); Eosinophils Absolute Auto 0.1 K/mm3 (0-0.3); Eosinophils Percent Auto 1.5 % (0-4.4); Hematocrit 44.3 % (37.0-47.0); Hemoglobin 14.5 g/dL (12.0-15.0); Immature Granulocyte Absolute 0.03 K/mm3 (0.00-0.031); Immature Granulocyte Percent A 0.4 % (0-0.5); Lymphocytes Absolute Auto 1.78 K/mm3 (0.9-3.2); Mean Corpuscular HGB Conc 32.7 g/dl (32-36); Mean Corpuscular Hemoglobin 29.7 pg (26-34); Mean Corpuscular Volume 90.6 fl (80-100); Mean Platelet Volume 9.9 fl (7.4-10.4); Monocytes Absolute Auto 0.5 K/mm3 (0.1-0.6); Monocytes Percent Auto 5.8 % (2.6-8.5); Neutrophils Absolute Auto 5.4 K/mm3 (1.3-6.7); Neutrophils Percent Auto 69.2 % (45.5-73.1); Platelet Count Result 369 k/mm3 (150-375); Red Blood Count 4.89 M/mm3 (4.2-5.4); White Blood Count 7.8 K/mm3 (4.5-10.0)
[2024-02-08 10:27] LABS: Alanine Aminotransferase 18 U/L (6-35); Albumin Level 4.7 g/dL (3.5-5.1); Alkaline Phosphatase 56 U/L (38-126); Anion Gap 9 mmol/L (4-12); Aspartate Amino Transferase 24 U/L (14-36); Bilirubin,Total 0.7 mg/dL (0.2-1.3); Blood Urea Nitrogen 14 mg/dL (7-17); Calcium 9.7 mg/dL (8.4-10.2); Carbon Dioxide 27 mmol/L (22-30); Chloride 101 mmol/L (98-107); Cholesterol 221 mg/dL (0-200); Estimated Glomerular Filt Rate 59; Glucose 102 mg/dL (65-110); HDL Direct 68 mg/dL; Potassium 4.7 mmol/L (3.4-5.0); Sodium 137 mmol/L (137-145); Triglycerides 135 mg/dL (<150)
[2024-02-08 10:31] LABS: Hemoglobin A1C 5.3 % (<5.7)
[2024-02-08 10:39] LABS: LDL Cholesterol Direct 128 mg/dL
[2024-02-08 10:49] LABS: Free T4 Free Thyroxine 1.77 ng/mL (0.78-2.19)
[2024-02-08 11:32] LABS: Folic Acid 11.4 ng/mL (2.76->20)
== END 2024-02-08 09:55 | disposition home or self-care (01) ==
LOC: ANHLAB 09:55
PROVIDERS: PCP Physician Assistant; Visit Provider Physician Assistant
DX: E03.9 Hypothyroidism, unspecified (principal); Z79.899 Other long term (current) drug therapy; Z13.1 Encounter for screening for diabetes mellitus; Z13.220 Encounter for screening for lipoid disorders
CPT/HCPCS: 36415; 80053; 80061; 82607; 82746; 83036; 84439; 84443; 85025

== ENCOUNTER 2024-02-15 09:31 | Outpatient (CLI) | payer BC, SELFPAY ==
--- NOTE | ~2024-02-15 | MM_ITS ---
EXAMINATION: MM screening [facility] BI w kymberly HISTORY: Screening mammogram TECHNIQUE: Craniocaudal and mediolateral oblique 3-D tomosynthesis images were obtained and synthetic 2-D images were generated. CAD analysis was submitted and interpreted. COMPARISON: 08/03/2022, 06/02/2021 BREAST PARENCHYMAL COMPOSITION:Not Dense. There are scattered areas of fibroglandular density. FINDINGS: Stable ovoid mass at the upper, slightly outer left breast. No suspicious mass, calcificati on, or architectural distortion are identified in either breast to suggest malignancy. There has been no suspicious interval change. IMPRESSION: No mammographic evidence of malignancy. Recommend routine screening mammography in one year. BI-RADS Category 2: Benign finding(s). Reviewed, dictated and finalized at location .
== END 2024-02-15 09:32 ==
PROVIDERS: PCP Physician Assistant; Visit Provider Obstetrics & Gynecology Gynecology
DX: Z12.31 Encounter for screening mammogram for malignant neoplasm of breast (principal)
CPT/HCPCS: 77063; 77067

== ENCOUNTER 2024-03-18 11:34 | Outpatient (CLI) | payer BC, SELFPAY ==
[2024-03-20 14:03] LABS: Creatinine, Random Urine 133 mg/dL (20-275); Total Protein/Creatinine Ratio 75 mg/g creat (24-184)
[2024-03-21 02:03] LABS: Protein, Total 7.1 g/dL (6.1-8.1)
[2024-03-21 10:49] LABS: Albumin 3.7 g/dL (3.8-4.8); Alpha 1 Globulin 0.4 g/dL (0.2-0.3); Alpha 2 Globulin 0.9 g/dL (0.5-0.9); Beta 1 Globulin 0.5 g/dL (0.4-0.6); Gamma Globulin 1.2 g/dL (0.8-1.7)
[2024-03-21 11:48] LABS: Kappa\\Lambda Light Chains 1.58 (0.26-1.65); Lambda Light Chain 15.4 mg/L (5.7-26.3)
== END 2024-03-18 11:35 | disposition home or self-care (01) ==
LOC: ANHLAB 11:36
PROVIDERS: PCP Physician Assistant; Visit Provider Physician Assistant
DX: R79.89 Other specified abnormal findings of blood chemistry (principal)
CPT/HCPCS: 36415; 82570; 83883; 84155; 84156; 84165; 84166

== ENCOUNTER 2024-05-04 15:36 | Outpatient (CLI) | payer BC, SELFPAY ==
--- NOTE | ~2024-05-04 | XR_ITS ---
EXAMINATION: XR bone survey comp/metastic DATE: 05/04/2024 16:37 INDICATION: Plasma cell disorder. TECHNIQUE: 31 views of a skeletal survey were obtained. COMPARISON: None. FINDINGS: The chest demonstrates clear lungs without pneumonia, pleural effusion, or pneumothorax. Th e heart size is normal. There are no dilated loops of bowel. There are no lytic lesions of bone. IMPRESSION: 1. No evidence of multiple myeloma. Reviewed, dictated and finalized at location A.
[2024-05-04 16:24] LABS: Basophils Percent Auto 0.3 % (0.2-1.2); Eosinophils Absolute Auto 0.2 K/mm3 (0-0.3); Eosinophils Percent Auto 2.2 % (0-4.4); Hematocrit 43.1 % (37.0-47.0); Hemoglobin 13.7 g/dL (12.0-15.0); Immature Granulocyte Absolute 0.04 K/mm3 (0.00-0.031); Immature Granulocyte Percent A 0.4 % (0-0.5); Lymphocytes Absolute Auto 2.47 K/mm3 (0.9-3.2); Lymphocytes Percent Auto 27.3 % (18.3-44.2); Mean Corpuscular HGB Conc 31.8 g/dl (32-36); Mean Corpuscular Hemoglobin 29.5 pg (26-34); Mean Corpuscular Volume 92.9 fl (80-100); Mean Platelet Volume 9.8 fl (7.4-10.4); Monocytes Absolute Auto 0.6 K/mm3 (0.1-0.6); Monocytes Percent Auto 6.7 % (2.6-8.5); Neutrophils Absolute Auto 5.7 K/mm3 (1.3-6.7); Neutrophils Percent Auto 63.1 % (45.5-73.1); Platelet Count Result 440 k/mm3 (150-375); Red Blood Count 4.64 M/mm3 (4.2-5.4); Red Cell Distribution Width 13.8 % (11.5-14.5)
[2024-05-04 16:41] LABS: Immunoglobulin A 160 mg/dL (70-400); Immunoglobulin G 1149 mg/dL (700-1600); Immunoglobulin M 269 mg/dL (40-230)
[2024-05-04 17:04] LABS: Alanine Aminotransferase 16 U/L (6-35); Albumin Level 4.4 g/dL (3.5-5.1); Alkaline Phosphatase 51 U/L (38-126); Anion Gap 12 mmol/L (4-12); Aspartate Amino Transferase 20 U/L (14-36); Bilirubin,Total 0.5 mg/dL (0.2-1.3); Blood Urea Nitrogen 12 mg/dL (7-17); Calcium 9.3 mg/dL (8.4-10.2); Carbon Dioxide 25 mmol/L (22-30); Chloride 91 mmol/L (98-107); Estimated Glomerular Filt Rate 53; Glucose 88 mg/dL (65-110); Potassium 3.9 mmol/L (3.4-5.0); Sodium 128 mmol/L (137-145)
[2024-05-08 13:34] LABS: Kappa\\Lambda Light Chains 1.25 (0.26-1.65); Lambda Light Chain 20.3 mg/L (5.7-26.3)
[2024-05-11 04:08] LABS: Protein, Total 7.5 g/dL (6.1-8.1)
[2024-05-11 15:04] LABS: Albumin 4.1 g/dL (3.8-4.8); Alpha 1 Globulin 0.4 g/dL (0.2-0.3); Alpha 2 Globulin 0.9 g/dL (0.5-0.9); Beta 1 Globulin 0.6 g/dL (0.4-0.6); Gamma Globulin 1.2 g/dL (0.8-1.7)
== END 2024-05-04 15:37 | disposition home or self-care (01) ==
PROVIDERS: PCP Physician Assistant; Visit Provider Internal Medicine Hematology & Oncology
DX: D72.9 Disorder of white blood cells, unspecified (principal)
CPT/HCPCS: 36415; 77075; 80053; 82784; 83883; 84155; 84165; 85025

== ENCOUNTER 2024-05-20 10:44 | Outpatient (CLI) | payer BC, SELFPAY ==
[2024-05-20 11:33] LABS: Albumin Level 4.4 g/dL (3.5-5.1); Anion Gap 8 mmol/L (4-12); Blood Urea Nitrogen 14 mg/dL (7-17); Calcium 9.9 mg/dL (8.4-10.2); Carbon Dioxide 29 mmol/L (22-30); Chloride 100 mmol/L (98-107); Estimated Glomerular Filt Rate 53; Glucose 97 mg/dL (65-110); Phosphorus 3.2 mg/dL (2.5-4.5); Potassium 4.6 mmol/L (3.4-5.0); Sodium 137 mmol/L (137-145)
[2024-05-20 11:44] LABS: Parathyroid Intact 23.1 pg/mL (14.5-75.2)
[2024-05-20 11:51] LABS: Total Protein Urine Random < 5 mg/dL; Ur Ttl Prot Creatinine Ratio < 0.05 mg/mg (0-0.20)
[2024-05-20 12:11] LABS: Vitamin D 25 Hydroxy 31.2 ng/mL
== END 2024-05-20 10:45 | disposition home or self-care (01) ==
PROVIDERS: PCP Physician Assistant; Visit Provider Internal Medicine Nephrology
DX: N18.31 Chronic kidney disease, stage 3a (principal); N20.0 Calculus of kidney; N25.81 Secondary hyperparathyroidism of renal origin; E55.9 Vitamin D deficiency, unspecified
CPT/HCPCS: 36415; 80069; 82306; 82570; 83970; 84156

== ENCOUNTER 2024-06-21 10:27 | Outpatient (CLI) | payer BC, SELFPAY ==
--- NOTE | ~2024-06-21 | XR_ITS ---
XR abdomen/kub 1V Ordering provider: Randa Rodriguez, PUBLIC AID ELIGIBILITY ASSISTANT History: . KIDNEY STONE ON RIGHT SIDE X 6+ MONTHS . Comparison: None. FINDINGS: BOWEL: Nonobstructive bowel gas pattern. ORGANOMEGALY: None. SIGNIFICANT PATHOLOGIC CALCIFICATIONS: None. OTHER: No free air is seen under the diaphragm. IMPRESSION: NO ACUTE ABDOMINAL FINDINGS. Reviewed, dictated and finalized at location A. RRAL AND INFORMATION AIDE
== END 2024-06-21 10:28 | disposition home or self-care (01) ==
PROVIDERS: PCP Physician Assistant; Visit Provider Nurse Practitioner Family
DX: N20.0 Calculus of kidney (principal)
CPT/HCPCS: 74018

== ENCOUNTER 2024-07-07 10:39 | Outpatient (CLI) | payer BC, SELFPAY ==
--- NOTE | ~2024-07-07 | XR_ITS ---
EXAMINATION: XR abdomen/kub 1V DATE: 07/07/2024 11:08 INDICATION: Right kidney stone. TECHNIQUE: A supine view of the abdomen on 2 radiographs was obtained. COMPARISON: Abdomen radiographs 06/21/2024, 05/02/2022, CT abdomen and pelvis 02/15/2023 FINDINGS: There are no dilated loops of bowel. There are phleboliths in the pelvis. The kidneys are o bscured by bowel. IMPRESSION: 1. No visible urolithiasis. Reviewed, dictated and finalized at location A. LE UI DESIGNER IMPRESSION: 1. No visible urolithiasis.
== END 2024-07-07 10:40 | disposition home or self-care (01) ==
PROVIDERS: PCP Physician Assistant; Visit Provider Urology
DX: N20.0 Calculus of kidney (principal)
CPT/HCPCS: 74018

== ENCOUNTER 2024-07-25 09:32 | Outpatient (CLI) | payer BC, SELFPAY ==
[2024-07-25 10:14] LABS: Basophils Percent Auto 0.1 % (0.2-1.2); Eosinophils Absolute Auto 0.1 K/mm3 (0-0.3); Eosinophils Percent Auto 1.9 % (0-4.4); Hematocrit 43.8 % (37.0-47.0); Immature Granulocyte Absolute 0.03 K/mm3 (0.00-0.031); Immature Granulocyte Percent A 0.4 % (0-0.5); Lymphocytes Absolute Auto 1.62 K/mm3 (0.9-3.2); Lymphocytes Percent Auto 22.5 % (18.3-44.2); Mean Corpuscular Volume 90.9 fl (80-100); Mean Platelet Volume 9.5 fl (7.4-10.4); Monocytes Absolute Auto 0.5 K/mm3 (0.1-0.6); Monocytes Percent Auto 6.7 % (2.6-8.5); Neutrophils Absolute Auto 4.9 K/mm3 (1.3-6.7); Neutrophils Percent Auto 68.4 % (45.5-73.1); Platelet Count Result 420 k/mm3 (150-375); Red Blood Count 4.82 M/mm3 (4.2-5.4); Red Cell Distribution Width 13.3 % (11.5-14.5); White Blood Count 7.2 K/mm3 (4.5-10.0)
[2024-07-25 10:24] LABS: Alanine Aminotransferase 16 U/L (6-35); Albumin Level 4.1 g/dL (3.5-5.1); Alkaline Phosphatase 60 U/L (38-126); Anion Gap 4 mmol/L (4-12); Aspartate Amino Transferase 21 U/L (14-36); Bilirubin,Total 0.5 mg/dL (0.2-1.3); Blood Urea Nitrogen 15 mg/dL (7-17); Calcium 9.5 mg/dL (8.4-10.2); Carbon Dioxide 27 mmol/L (22-30); Chloride 105 mmol/L (98-107); Estimated Glomerular Filt Rate 44; Glucose 94 mg/dL (65-110); Potassium 4.7 mmol/L (3.4-5.0); Sodium 136 mmol/L (137-145)
[2024-07-25 10:52] LABS: Total Triiodothyronine (T3) 1.15 NG/ML (0.97-1.69)
== END 2024-07-25 09:33 | disposition home or self-care (01) ==
PROVIDERS: PCP Physician Assistant; Visit Provider Physician Assistant
DX: E03.9 Hypothyroidism, unspecified (principal); Z79.899 Other long term (current) drug therapy
CPT/HCPCS: 36415; 80053; 84439; 84443; 84480; 85025

== ENCOUNTER 2024-08-04 02:48 | Day surgery (SDC) | payer BC, SELFPAY ==
[2024-07-24 15:24] VITALS: BMI 35.3
[2024-08-04 11:11] VITALS: BP 150/83; PULSE 105; RESP 18; TEMP 36.7; O2SAT 100
[2024-08-04 11:20] LABS: BEDSIDEPREGUCG Negative (Negative)
[2024-08-04] MEDS: LACTATED RINGERS 1,000 ML 150 ML IV CONT (11:35)
--- NOTE | 2024-08-04 12:23 | P.PNAN_ITS ---
Anes - Initial Pre Proc Eval Procedure: Operation Date: 08/04/24 12:30 Proposed Procedures p Screening Colonoscopy - Preet Bergeron MD Date/Time: 08/04/24 12:23 Surgeon: Preet Bergeron MD Pre Op Diagnosis: neoplasm screening Patient Data Age: 48 Gender: F Height: 1.52 m Weight: 82 kg Last Vital Signs Temp 36.7 C 08/04/24 11:11 Pulse 105 H 08/04/24 11:11 Resp 18 08/04/24 11:11 BP 150/83 H 08/04/24 11:11 Pulse Ox 100 08/04/24 11:11 O2 Del Method Room Air 08/04/24 11:11 Allergies Allergy/AdvReac Type Severity Reaction Status Date / Time No Known Allergies Allergy Verified 07/24/24 15:07 Home Medications ?Medication ?Instructions ?Recorded ?Confirmed ?Type phentermine 37.5 mg tablet 37.5 mg PO DAILY 09/21/19 08/04/24 History potassium citrate 10 mEq (1,080 10 meq PO DAILY 09/21/19 08/04/24 History mg) tablet,extended release ropinirole 1 mg tablet 2 mg HS 08/31/21 05/25/24 History levothyroxine 88 mcg tablet 88 mcg PO DAILY 03/23/23 08/04/24 History atorvastatin 10 mg tablet 10 mg PO QHS 11/25/23 08/04/24 History lisinopril 5 mg tablet 5 mg PO DAILY 11/25/23 08/04/24 History norethindrone 1 mg-ethinyl 1 tablet PO DAILY 11/25/23 08/04/24 History estradiol 10 mcg (24)-iron 10 mcg(2) tablet (Lo Loestrin Fe) cyanocobalamin (vitamin B-12) 1,000 mcg subcut MONTHLY 07/24/24 08/04/24 History 1,000 mcg/mL injection solution losartan 25 mg tablet 25 mg PO DAILY 07/24/24 08/04/24 History sulfamethoxazole 800 1 tablet PO DAILY 07/24/24 08/04/24 History mg-trimethoprim 160 mg tablet Laboratory Tests 08/04/24 11:18 POC Urine HCG, Qual Negative (Negative) Patient hx anesthesia problems: none Family hx anesthesia problems: none Results Review: All pre-operative results and documents have been reviewed as part of the pre- operative evaluation. [facility] Past Medical History Medical History Chronic renal failure (CRF), stage 3 (moderate) Graves' disease Hypothyroidism UTI (urinary tract infection) Kidney stones GERD (gastroesophageal reflux disease) Gastric ulcer Bronchitis Surgical History Surgical History History of carpal tunnel release Bilateral 2021 History of hysteroscopy 2019 with benign findings Hx of thyroidectomy Hx of arthroscopy of right knee x2 Hx of lithotripsy Hx of section x3 Hx of tubal ligation Family History Family History Grandparent Hypertension Family history of malignant neoplasm of breast Mother Family history of malignant neoplasm of ovary ESRD (end stage renal disease) on dialysis Social History Social History Smoking status: Never smoker Alcohol intake: never Substance use: never Substance use type: does not use Do You Feel Safe in your Home?: Yes Lack of Transportation: No Lack of Food: Never True Current Housing: I Have Housing Concerned About Future Housing: No Difficulty Paying Gas/Electric Bills: No Difficulty Paying for Meds: No Currently Unemployed: No Education: Decline to Answer Difficulty w/ Childcare or Family Care: No Living arrangements: with family Gender identity (if verbalized by the patient): Female Spiritual care concerns: No Agree to blood products: Yes Anes - Eval Final PreProcedure Day of Procedure 08/04/24 12:23 Patient weight: obese Heart: regular rate and rhythm Lungs: clear to auscultation Airway: Mallampati scale class II Neurological: alert and oriented Last oral intake: >/= 8 hours ASA classification: II Emergent: no Anesthetic plan: proceed Anesthesia type and monitoring: general GIVS Results Review: All pre-operative results and documents have been reviewed as part of the pre- operative evaluation. Informed Consent: The patient's anesthetic plan and its attendant risks and benefits were disc ussed with the patient/family/POA. Questions were solicited and answers provided to the satisfaction of the patient/family/POA.
--- NOTE | 2024-08-04 12:32 | PM.IMHP ---
H&P: HPI History of Present Illness Date/Time: 08/04/24 12:32 Chief Complaint: Screening colonoscopy Narrative: This is the patient's first colonoscopy. There are no GI symptoms and there is no family history of colorectal cancer. Review of Systems Review of Systems: All systems reviewed & are unremarkable except as noted in HPI and below PMFSH Past Medical History Medical History Chronic renal failure (CRF), stage 3 (moderate) Graves' disease Hypothyroidism UTI (urinary tract infection) Kidney stones GERD (gastroesophageal reflux disease) Gastric ulcer Bronchitis Surgical History Surgical History History of carpal tunnel release Bilateral 2021 History of hysteroscopy 2019 with benign findings Hx of thyroidectomy Hx of arthroscopy of right knee x2 Hx of lithotripsy Hx of section x3 Hx of tubal ligation Family History Family History Grandparent Hypertension Family history of malignant neoplasm of breast Mother Family history of malignant neoplasm of ovary ESRD (end stage renal disease) on dialysis Social History Social History Smoking status: Never smoker Alcohol intake: never Substance use: never Substance use type: does not use Do You Feel Safe in your Home?: Yes Lack of Transportation: No Lack of Food: Never True Current Housing: I Have Housing Concerned About Future Housing: No Difficulty Paying Gas/Electric Bills: No Difficulty Paying for Meds: No Currently Unemployed: No Education: Decline to Answer Difficulty w/ Childcare or Family Care: No Living arrangements: with family Gender identity (if verbalized by the patient): Female Spiritual care concerns: No Agree to blood products: Yes Meds Home Medications and Allergies Home Medications ?Medication ?Instructions ?Recorded ?Confirmed ?Type phentermine 37.5 mg tablet 37.5 mg PO DAILY 09/21/19 08/04/24 History potassium citrate 10 mEq (1,080 10 meq PO DAILY 09/21/19 08/04/24 History mg) tablet,extended release ropinirole 1 mg tablet 2 mg HS 08/31/21 05/25/24 History levothyroxine 88 mcg tablet 88 mcg PO DAILY 03/23/23 08/04/24 History atorvastatin 10 mg tablet 10 mg PO QHS 11/25/23 08/04/24 History lisinopril 5 mg tablet 5 mg PO DAILY 11/25/23 08/04/24 History norethindrone 1 mg-ethinyl 1 tablet PO DAILY 11/25/23 08/04/24 History estradiol 10 mcg (24)-iron 10 mcg(2) tablet (Lo Loestrin Fe) cyanocobalamin (vitamin B-12) 1,000 mcg subcut MONTHLY 07/24/24 08/04/24 History 1,000 mcg/mL injection solution losartan 25 mg tablet 25 mg PO DAILY 07/24/24 08/04/24 History sulfamethoxazole 800 1 tablet PO DAILY 07/24/24 08/04/24 History mg-trimethoprim 160 mg tablet Allergies Allergy/AdvReac Type Severity Reaction Status Date / Time No Known Allergies Allergy Verified 07/24/24 15:07 Vital Signs Vital Signs - 24 hr 08/04/24 11:11 Temperature 98.0 F Pulse Rate 105 H Respiratory Rate 18 Blood Pressure 150/83 H Pulse Oximetry 100 Oxygen Delivery Room Air Exam Const: General: cooperative and healthy appearing Resp: Effort & Inspection: normal respiratory effort and able to speak in complete sentences Auscultation: clear to auscultation bilaterally Cardio: Rate: regular rate Rhythm: regular rhythm GI: Inspection: normal to inspection GI Palp: No No hepatosplenomegaly present Auscultation: normal bowel sounds Rectal Exam: deferred Skin: General skin exam: normal color Psych: Appearance: grossly normal Mental Status: mental status grossly normal Assessment and Plan Assessment and plan (1) Encounter for screening colonoscopy: Code(s): Z12.11 - Encounter for screening for malignant neoplasm of colon Status: Acute Assessment and Plan: The patient is deemed a good candidate for the procedure. Consent signed. Will proceed.
[2024-08-04 12:53] VITALS: BP 105/62; PULSE 88; RESP 20; O2SAT 100
[2024-08-04 13:03] VITALS: BP 112/70; PULSE 81; RESP 20; O2SAT 100
[2024-08-04 13:13] VITALS: BP 121/81; PULSE 79; RESP 22; O2SAT 100
== END 2024-08-04 13:40 | disposition home or self-care (01) ==
PROVIDERS: Anesthesiology; PCP Physician Assistant; Referring Provider Nurse Practitioner; Visit Provider Internal Medicine Gastroenterology
PROC: 0DJD8ZZ Inspection of Lower Intestinal Tract, Via Natural or Artificial Opening Endoscopic (ICD-10-PCS; CPT 45378; principal; 2024-08-04 12:30)
DX: Z12.11 Encounter for screening for malignant neoplasm of colon (principal); E03.9 Hypothyroidism, unspecified; K21.9 Gastro-esophageal reflux disease without esophagitis; N18.30 Chronic kidney disease, stage 3 unspecified; E05.00 Thyrotoxicosis with diffuse goiter without thyrotoxic crisis or storm; E66.9 Obesity, unspecified; Z68.35 Body mass index [BMI] 35.0-35.9, adult; Z98.890 Other specified postprocedural states; Z98.51 Tubal ligation status; Z87.442 Personal history of urinary calculi; Z87.11 Personal history of peptic ulcer disease; Z80.3 Family history of malignant neoplasm of breast; Z80.41 Family history of malignant neoplasm of ovary
CPT/HCPCS: 45378; J2704; J7120

== ENCOUNTER 2024-11-10 12:34 | Outpatient (CLI) | payer BC, SELFPAY ==
--- OUTSIDE RECORDS SUMMARY | 2024-11-10 12:52 | XMS_ITS | Continuity of Care Document ---
Author Organization [facility] Address [address] [facility] [address] [place] [address] Phone Care Team Providers Care Coater Smoking Pipe Name Role Phone Natan Julio Unavailable Unavailable Advance Directives Directive Yes / No Effective Date File Name No Information Encounters Encounter Description Practice Location Reason(s) For Visit Diagnoses Date Provider Providers Copied on Encounter [facility], [address], [place], [place], [id number], [place] tel:[phone] [facility] No Information Mar-3 0-200 5 Sumanth Gama. [address] , [address], [place], [address], [place]. tel:[phone] Family History Family Member Type Diagnosis Age At Onset No Information Payers Payer name Insurance type Covered democrat ID Authoriza tion(s) No Information Social History Type Description Quantity Date Captured Comments Sex Female Smoking Status No Information Chief Complaint And Reason For Visit No Information Reason For Referral Reason For Referral No Information History Of Present Illness Encounter Date Complaint History Of Prese nt Illness No Information Functional Status Date Functional Assessmen t No Information Instructions Date Instruction Additional Infor mation No Information Assessments Type Assessment Date No Information Patient Care Teams Name Effective Dates (start - stop) Status Members No Information
--- OUTSIDE RECORDS SUMMARY | 2024-11-10 12:52 | XMS_ITS | Clinical Summary ---
Author Organization [facility] Address [address] [place] [address] Care Team Providers Care Plastic Bubble Packer Name Role Phone Kailyn Segal Primary Care Pr ovider Allergies No known active allergies Medications Blisovi Fe , 1 mg-20 mcg (21)/75 mg (7) per tabletIndications : Contraception Take 1 tablet by mouth every morning 4 Active potassium citrate ER (UROCIT-K) 10 mEq (1,080 mg) CR tabletIndications :Calcium Renal Calculi Prevention Take 1 tablet (10 mEq total) by mouth 2 (two) times a day 4 Active rOPINIRole (REQUIP) 1 mg tabletIndications :Restless Legs Syndrome Take 1 tablet (1 mg total) by mouth nightly 4 Active BD Luer-Katina Syringe 3 mL 25 gauge x 1 syringe USE DIRECTED ONCE MONTHLY. 4 Active levothyroxine (SYNTHROID) 88 mcg tabletIndications :hypothyroidism Take 1 tablet (88 mcg total) by mouth prototype engineer before breakfast 4 Active phentermine (ADIPEX-P) 37.5 mg tabletIndications :Weight Loss Management for Obese Patient (BMI >= 30) Take 1 tablet (37.5 mg total) by mouth daily before breakfast 3 4 Active pilocarpine HCl (Vuity) 1.25 % drops ophthalmic solutionIndicatio ns:supplement Administer 1 drop into both eyes 2 (two) times a day as needed Active amoxicillin 500 mg tablet/capsuleInd ications:Prophyla xis, Medical,dental surgery Take 1 tablet/capsule (500 mg total) by mouth 3 (three) times a day Active estradioL (ESTRACE) 0.01 % (0.1 mg/gram) vaginal creamIndications: Atrophy of Vulva Insert 2 g into the vagina 2 (two) times a week 4 Active losartan (COZAAR) 25 mg tabletIndications :hypertension Take 1 tablet (25 mg total) by mouth every morning Active meloxicam (MOBIC) 15 mg tablet Take 1 tablet (15 mg total) by mouth daily for 10 days 10 tablet 4 Active HYDROcodone-aceta minophen (NORCO) 5-325 mg per tabletIndications :Pain 1 - 2 tabs q6h prn pain 12 tablet 4 Active cyanocobalamin (Vitamin B-12) 1,000 mcg/mL injection INJECT 2 ML UNDER THE SKIN ONCE MONTHLY 4 Active valACYclovir (VALTREX) 1 gram tablet TAKE 2 TABLETS BY MOUTH EVERY 12 HOURS FOR 1 DAILY NEEDED FOR FLARE UPS 4 Active sulfamethoxazole- trimethoprim (BACTRIM DS) 800-160 mg per tablet Take 1 tablet by mouth 2 (two) times a day 20 tablet 4 Active Active Problems Problem Noted Date Diagnosed Date S/P arthroscopic partial medial meniscectomy of right knee 06/19/2024 Chondromalacia of right patella 05/18/2024 Tear of medial meniscus of right knee, current 1 Complex tear of medial menis cus of right knee as current injury 04/13/2024 Acute pain of right knee 03/16/2024 Effusion of right knee 03/16/2024 Chondromalacia of right knee 03/16/2024 Herpes labialis 08/05/2023 Trigger thumb of left hand 05/12/2023 Hydroureter 02/10/2023 Hyperlipidemia 02/10/2023 Restless legs 01/15/2023 Right upper quadrant pain 01/15/2023 Cough 07/05/2022 COVID-19 07/02/2022 Bilateral carpal tunnel syndrome 01/14/2022 Pain in both hands 01/14/2022 Mild major depression 01/09/2022 Kidney disease 07/08/2020 Attention deficit hyperactivity disorder 020 Hypothyroidism 11/22/2019 Degenerative joint disease of acromioclavicular joint 03/28/2018 Adhesive capsulitis of right shoulder 03/28/2018 Acute pain of right shoulder 01/21/2018 Abnormal findings on diagnostic imaging of breas t 05/10/2014 Postoperative hypothyroidism 06/27/2013 Overview (11/20/2016): POSTSURGICAL HYPOTHYROID Weight gain 09/06/2012 Overview (11/20/2016): Weight gain Thyrotoxicosis with thyrotoxic crisis 06/25/2009 Overview (11/19/2016): THYROTOX NOS NO CRISIS Nodular goiter, 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 01/22/2009 Overview (11/19/2016): TOX DIF GOITER NO CRISIS Surgical History Surgery Date Site/Laterality Comments THYROIDECTOMY 05/03/2009 Thyroidectomy SECTION 08/16/1995 - 08/15/1996 section KNEE ARTHROSCOPY 08/16/1992 - 08/15/1993 Right KIDNEY STONE SURGERY 08/16/1999 - 08/15/2000 multiple KNEE ARTHROSCOPY 08/16/2001 - 08/15/2002 Right SECTION 08/16/1998 - 08/15/1999 SECTION 08/16/2000 - 08/15/2001 CARPAL TUNNEL RELEASE 08/16/2022 - 08/15/2023 Bilateral TRIGGER FINGER RELEASE 08/16/2022 - 08/15/2023 Left thumb TUBAL LIGATION Medical History Medical History Date Comments Hx Other Medical knee surgeries Hx Other Medical NOT CLAUSTROPHO BIC; Comments: MARIE 05/15/2014 - Kidney stone Thyroid disease hypothyroidism Asthma seasonal well co ntrolled Urinary tract infection h/o PRN Pneumonia h/o Obesity Migraines PONV (postoperative nausea a nd vomiting) Chronic kidney failure, stag e 3 (moderate) (HCC) HTN (hypertension) RLS (restless legs syndrome) Family History Medical History Relation Name Comments No Known Problems Father Cancer Mother Kidney disease Mother Other Other No family histo ry of Thyroid disease; Anesthesia problems Neg Hx Relation Name Status Comments Father Mother Other Social History Tobacco Use Types Packs/Day Years Used Date Smoking Tobacco: Never Smokeless Tobacco: Never Alcohol Use Standard Drinks/Week Comments Yes 0 (1 standard drink = 0.6 oz pur e alcohol) AUDIT-C Answer Date Recorded Frequency of Alcohol Consumption Not on file 05/29/2024 Q2: How many drinks containi ng alcohol do you have on a typical day when you are drinking? Patient does not drink Frequency of Binge Drinking Not on file 05/16 Personal Safety Answer Date Recorded Have you ever been in or are you currently in a harmful physical or emotional relationship or is someone making you feel afraid or unsafe? Denies 06/09/2024 Comments Unknown Sex and Gender Information Value Date Recorded Sex Assigned at Not on file Legal Sex Female 10:58 AM PHYSICIAN INDUSTRIAL Gender Identity Not on file Sexual Orientation Not on file Obstetrics History Last Filed Vital Signs Vital Sign Reading Time Taken Comments Blood Pressure 115/71 06/09/2024 9:10 AM CDT Pulse 84 06/09/2024 9:15 AM CDT Temperature 36.6 C (97.9 F) 06/09/2024 8:20 AM CDT Respiratory Rate 15 06/09/2024 9:15 AM CDT Oxygen Saturation 95% 06/09/2024 9:15 AM CDT Inhaled Oxygen Concentration - - Weight 85 kg (187 lb 8 oz) 06/09/2024 6:09 AM CD T Height 152.4 cm (5') 06/09/2024 6:09 AM CDT Body Mass Index 36.62 06/09/2024 6:09 AM CDT Plan of Treatment Health Maintenance Due Date Last Done Comments Breast Cancer Screening-Mammogram 1975 Cervical Cancer Screening 1975 Colon Cancer Screening-Colonoscopy 1975 Depression Screening 1975 Hepatitis C Screening 1975 DTaP/Tdap/Td Vaccine (1 - Tdap) 10/18/1986 Hepatitis B Screening 10/18/1993 Regular Well Visit/Exam 18-64 10/18/1993 Covid-19 Vaccine ( season) 2024 11/27/2022, 08/18/2021, 11/18/2020, Additional history exists Influenza Vaccine (#1) 2024 Pneumococcal vaccine <65 Aged Out No longer eligible based on patient's age to complete this topic Insurance [employer] [place] [address] [employer] Care Teams Plastic Bubble Packer Relationship Specialty Start Date End Date Kailyn Segal PA [address] [place] [address] PCP - General Physician Automobile Radio Repairer 03/07/24
--- OUTSIDE RECORDS SUMMARY | 2024-11-10 12:52 | XMS_ITS | Clinical Summary ---
Author Organization [facility] Address [address] [place] [address] Care Team Providers Care Plating Engineer Name Role Phone Kailyn Segal Primary Care Provider [phone] Allergies No known active allergies Medications losartan (COZAAR) 25 MG tablet Take 1 tablet (25 mg total) by mouth daily. Active Social History Tobacco Use Types Packs/Day Years Used Date Smoking Tobacco: Never Smokeless Tobacco: Never Tobacco Cessation:Counseling Given: Not Answered Comments Unknown Sex and Gender Information Value Date Recorded Sex Assigned at Not on file Legal Sex Female 6:31 PM CDT Gender Identity Not on file Sexual Orientation Not on file Last Filed Vital Signs Vital Sign Reading Time Taken Comments Blood Pressure 142/88 08/09/2024 6:26 PM CHIEF DEPUTY CLERK/BAILIFF Pulse 91 08/09/2024 6:26 PM CHIEF DEPUTY CLERK/BAILIFF Temperature 36.7 C (98.1 F) 08/09/2024 6:26 PM CHIEF DEPUTY CLERK/BAILIFF Respiratory Rate 16 08/09/2024 6:26 PM CHIEF DEPUTY CLERK/BAILIFF Oxygen Saturation 98% 08/09/2024 6:26 PM CHIEF DEPUTY CLERK/BAILIFF Inhaled Oxygen Concentration - - Weight 84.2 kg (185 lb 10 oz) 08/09/2024 4:48 PM CHIEF DEPUTY CLERK/BAILIFF Height 152.4 cm (5') 08/09/2024 4:48 PM CHIEF DEPUTY CLERK/BAILIFF Body Mass Index 36.25 08/09/2024 4:48 PM CHIEF DEPUTY CLERK/BAILIFF Plan of Treatment Health Maintenance Due Date Last Done Comments Cervical Cancer Screening Pap Smear (Age 30 to 64) Every 3 Years 1975 Colorectal Cancer Screening Colonoscopy (10 Years) 1975 Annual Physical 10/18/1978 Hepatitis C 10/18/1993 DTaP, Tdap and Td Vaccines (1 - Tdap) 10/18/1994 Hepatitis B Vaccines (1 of 3 - 19+ 3-dose series) 10/18/1994 Cervical Cancer Screening Pap with HPV Testing (Age 30 to 64) Every 5 Years 10/18/2005 Cervical Cancer Screening with HPV 10/18/2005 Mammogram Screening 2015 COVID-19 Vaccine ( season) 2024 11/27/2022, 08/18/2021, 11/19/2020, Additional history exists Influenza Adult (#1) 2024 Meningococcal B Vaccine Aged Out No l onger eligible based on patient's age to complete this topic Meningococcal Vaccine Aged Out No taran darshana eligible based on patient's age to complete this topic Pneumococcal Vaccine: Pediatrics (0 to 5 Years) and At-Risk Patients (6 to 64 Years) Aged Out No longer eligible based on patient's age to complete this topic RSV Immunizations Under 20 Months Aged Out No longer eligible based on patient's age to complete this topic Insurance [facility] Care Teams Plating Engineer Relationship Specialty Start Date End Date Kailyn Segal PA [address] [place] [address] PCP - General PHYSICIAN PRECISION DANCER 10/19/23
--- OUTSIDE RECORDS SUMMARY | 2024-11-10 12:52 | XMS_ITS | Clinical Summary ---
Author Organization [facility] Address [address], [address] [address] Phone Care Team Providers Care Fuel Cell Systems Engineer Name Role Phone Gavin Frank MD Primary Care Provider [phone] Abel Rodriguez MD Unavailable [phone] Tristen Carson DO Unavailable [phone] Medications pantoprazole (PROTONIX) 40 MG Tablet Delayed Response Take 1 Tab by mouth daily. 30 Tab 3 05/31/2017 Active Social History Tobacco Use Types Packs/Day Years Used Date Smoking Tobacco: Never Assessed Comments Unknown Sex and Gender Information Value Date Recorded Sex Assigned at Not on file Legal Sex Female 9:40 PM CDT Gender Identity Not on file Sexual Orientation Not on file Plan of Treatment Health Maintenance Due Date Last Done Comments Hepatitis C Virus (HCV) Screening 1975 TdaP Immunization 1975 Hepatitis B Immunization (1 of 3 - 19+ 3-dose series) 10/18/1994 Pap Smear 10/18/1996 Cervical Cancer Screening (CCS) 10/18/2005 HPV/Cotest 10/18/2005 Discussion re Starting/Frequ ency of Mammograms 2015 Colonoscopy 10/18/2020 Colorectal Cancer Screening 10/18/2020 Influenza Immunization (#1) 2024 SARS-COV-2 Immunization ( season) 2024 Respiratory Syncytial Virus (RSV) Immunization (Adult) ( - -dose 75+ series) 10/18/2050 Meningococcal Immunization (ACWY) Aged Out No longer eligible based on patient's age to complete this topic Pneumococcal Immunization Combined Aged Out No longer eligible based on patient's age to complete this topic Rotavirus Immunization Aged Out No lo nger eligible based on patient's age to complete this topic [place] [address] [facility] Care Teams Fuel Cell Systems Engineer Relationship Specialty Start Date End Date Gavin Frank MD [address] [place] [address] PCP - General Family Medicine 04/18/17 Abel Rodriguez MD [address] [facility] [address] [place] [address] Hospitalist Internal Medicine 04/18/17 Tristen Carson DO 2 [facility] [address] [place] [address] Consulting Physician Gastroenterology 04/18/17
--- OUTSIDE RECORDS SUMMARY | 2024-11-10 12:52 | XMS_ITS | Referral Summary ---
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
--- OUTSIDE RECORDS SUMMARY | 2024-11-10 12:52 | XMS_ITS | Clinical Summary ---
Author Organization [facility] Address [address] [place] [address] Phone Care Team Providers Care Inspector Conveyor Line Name Role Phone Unavailable Primary Care Provider Unavailabl e Allergies No known active allergies Medications atenolol (TENORMIN) 25 mg Oral Tab Take 25 mg by mouth 2 times daily. Active levothyroxine 88 mcg tablet Take 88 mcg by mouth daily. Active lisinopriL (PRINIVIL) 5 mg tablet Take 5 mg by mouth daily. Active Blisovi Fe 09/04, 28, 1 mg-20 mcg (21)/75 mg (7) tablet Take 1 Tablet by mouth daily. Active potassium citrate (UROCIT-K) 10 mEq (1,080 mg) Extended Release tablet Take 10 mEq by mouth 2 times daily. 02/24/2024 Active rOPINIRole (REQUIP) 1 mg tablet Take 1 mg by mouth. Active Active Problems Problem Noted Date Diagnosed Date Nodular goiter, toxic or with hyperthyroidism Encounters Date Type Department Care Team Description 11/01/2024 External Device Data ST[facility] ABSTRACTION Provider, Abstract 10/25/2024 External Device Data ST[facility] ABSTRACTION Provider, Abstract 10/24/2024 External Device Data ST[facility] ABSTRACTION Provider, Abstract 10/21/2024 External Device Data ST[facility] ABSTRACTION Provider, Abstract 10/20/2024 External Device Data [facility] ABSTRACTION Provider, Abstract 10/18/2024 External Device Data STL ABSTRACTION Provider, Abstract 10/18/2024 Abstract [facility] Oncology and Hematology - [address] [place] [address] Issac Jaimes MD 10/04/2024 External Device Data STL ABSTRACTION Provider, Abstract 08/29/2024 External Device Data STL ABSTRACTION Provider, Abstract from Last 3 Months Family History Medical History Relation Name Comments No Known Problems Brother 1 No Known Problems Brother 2 No Known Problems Brother 3 No Known Problems Child 1 No Known Problems Child 2 No Known Problems Child 3 Breast Cancer Maternal Grandmother Colon Cancer Maternal Grandmother Vaginal Cancer Maternal Grandmother Breast Cancer Mother Vaginal Cancer Mother No Known Problems Sister 1 No Known Problems Sister 2 Relation Name Status Comments Brother 1 Alive Brother 2 Alive Brother 3 Alive Child 1 Alive Child 2 Alive Child 3 Alive Father Unknown Maternal Grandmother Mother Sister 1 Sister 2 Alive Social History Tobacco Use Types Packs/Day Years Used Date Smoking Tobacco: Never Alcohol Use Standard Drinks/Week Comments Yes 0 (1 standard drink = 0.6 oz pur e alcohol) occasionally Comments Unknown Sex and Gender Information Value Date Recorded Sex Assigned at Not on file Legal Sex Female 5:46 AM TELEPHONE TRIAGE NURSE Gender Identity Not on file Sexual Orientation Not on file Last Filed Vital Signs Vital Sign Reading Time Taken Comments Blood Pressure 133/74 05/04/2024 2:48 PM CDT Pulse 85 05/04/2024 2:48 PM CDT Temperature 36.9 C (98.4 F) 05/04/2024 2:48 PM CDT Respiratory Rate 18 05/04/2024 2:48 PM CDT Oxygen Saturation 97% 05/04/2024 2:48 PM CDT Inhaled Oxygen Concentration - - Weight 85.7 kg (189 lb) 05/04/2024 2:48 PM CDT Height 152.4 cm (5') 05/04/2024 2:48 PM CDT Body Mass Index 36.91 05/04/2024 2:48 PM CDT Plan of Treatment Upcoming Encounters Date Type Department Care Team (Late st Contact Info) Description 11/23/2024 2:45 PM CDT Office Visit [facility] Oncology and Hematology - [address] [facility] [address] [place] [address] Issac Jaimes MD [address] [facility] [address] [place] [address] Health Maintenance Due Date Last Done Comments Pre-Diabetes and Diabetes Screening 1975 DTAP/TDAP/TD VACCINES (1 - Tdap) 10/18/1994 HEPATITIS B VACCINES (1 of 3 - 19+ 3-dose series) 12/1994 PAP SMEAR 10/18/1996 CERVICAL CANCER SCREENING 10/18/2005 HPV/Cotest (30-65) 10/18/2005 PAP SMEAR 10/18/2005 BREAST CANCER SCREENING 2015 COLORECTAL SCREENING 10/18/2020 Colorectal Cancer Screening 10/18/2020 FIT-DNA Q 3 years 10/18/2020 FIT/FOBT Q 1 year 10/18/2020 Flex Sig/CT Colonography Q 5 years 10/18/2020 INFLUENZA VACCINE (#1) 2024 Preventative Visit- Commercial 08/16/2024 Insurance [employer] BLUE ACCESS/TRUE BLUE PPO BS BLUE ACCESS/TRUE BLUE PPO [employer] BLUE ACCESS/TRUE BLUE PPO Advance Directives For more information, please contact: [phone] * Full Code (Latest Code Status on File) Date Activated Date Inactivated Comments 05/03/2009 11:23 AM 05/04/2009 10:51 AM * Full Code Date Activated Date Inactivated Comments 05/03/2009 7:24 AM 05/03/2009 11:23 AM
--- OUTSIDE RECORDS SUMMARY | 2024-11-10 12:52 | XMS_ITS | CONTINUITY OF CARE DOCUMENT ---
Author Name jonah mckenzie Address Unknown Organization [facility] Address [address] [place] [address] [address] [address] Phone [phone] Care Team Providers Care Stores Laborer Name Role Phone Sushant Lala MD Unavailable INSURANCE PROVIDERS Payer name Policy type / Coverage type [place] red libertarian ID [facility] [employer] [facility] company [id number]
--- OUTSIDE RECORDS SUMMARY | 2024-11-10 12:53 | XMS_ITS | Clinical Summary ---
Author Organization [facility] [employer] Address [address] [place] [address] Care Team Providers Care Ship Pilot Name Role Phone Gavin Frank MD Primary Care Provider [phone] Source Comments [facility],non-owned Affiliates and Associated Physician Practices is amultiple site organization consisting of ambulatory clinics and hospital sitesin [place], [place], [place] and [place]. This disclosure is being madepursuant to the Care Everywhere program and may not contain all information available regarding this patient. Last updated 18.[facility] [employer] Social History Tobacco Use Types Packs/Day Years Used Date Smoking Tobacco: Never Assessed Sex and Gender Information Value Date Recorded Sex Assigned at Not on file Gender Identity Not on file Sexual Orientation Not on file Plan of Treatment Health Maintenance Due Date Last Done Comments COLOGUARD (AGES 45-75) - COL ON CA SCREENING 1975 COLON MONITORING 1975 COLONOSCOPY - COLON CA SCREENING 1975 CT COLONOGRAPHY - COLON CA SCREENING 1975 Colorectal Cancer Screening 1975 FIT - COLON CA SCREENING 1975 FLEX SIG - COLON CA SCREENING 1975 LIPID TESTING 1975 MAMMOGRAM 1975 PAP SMEAR 1975 HIV SCREENING 10/18/1990 HEPATITIS C SCREENING 10/14/1993 DTAP/TDAP/TD VACCINES (1 - Tdap) 10/18/1994 HEPATITIS B VACCINE (1 of 3 - 19+ 3-dose series) 10/18/1994 COVID-19 VACCINE ( - 2023-2 5 season) 2024 INFLUENZA VACCINE (#1) 2024 DEPRESSION SCREENING 08/16/2024 ZOSTER VACCINE (1 of 2) 10/18/2025 HIB VACCINE Aged Out No longer eligi ble based on patient's age to complete this topic HPV VACCINE Aged Out No longer eligi ble based on patient's age to complete this topic MENINGOCOCCAL (Group B) VACC INE SHARED DECISION-MAKING Aged Out No longer eligibl e based on patient's age to complete this topic MENINGOCOCCAL GROUPS A/C/Y/W VACCINE Aged Out No longer eligible b ased on patient's age to complete this topic PNEUMOCOCCAL VACCINE Aged Out No long er eligible based on patient's age to complete this topic Care Teams Ship Pilot Relationship Specialty Start Date End Date Gavin Frank MD [address] [place] [address] PCP - General 12/05/18
--- OUTSIDE RECORDS SUMMARY | 2024-11-10 12:53 | XMS_ITS | Data Portability ---
Author Organization [place] [facility], Main Office Address [address] [place] [address] Care Team Providers Care Gis Technician Name Role Phone QUITA TJ Primary Care Provider TJ DEVLIN Referring Provider [phone] Assessment Encounter Date Assessment Date Assessment LastModified by Organization Details LastModified Time 05/12/2023 05/12/2023 47-year-old female returns to clinic concerning left trigger thumb. She previously underwent a right carpal tunnel release back in June of 2022 and received a 2nd corticosteroid injection into her left thumb due to trigger thumb. She had some relief after that injection but her symptoms have since returned. She now has developed a slight flexion contracture at the IP joint of the left thumb, as well as worsened triggering. We discussed possible treatment options including a 3rd and final corticosteroid injection versus surgical release. we discussed surgical release in detail noting all the risks, benefits, alternatives. All the patient's questions were answered and she elected to proceed with surgical release. She will follow-up for a left trigger thumb release. [email or web address] Not available 05/12/2023 13:44:49 07/13/2023 07/13/2023 47-year-old female presents for follow-up of her left thumb status post trigger thumb release on 06/29/2023. This is her 1st postop appointment. She feels better, reports 0/10 pain. She still reports some numbness throughout her fingers including the thumb and the pinky. She is not taking any medications. Incision is clean dry intact, no signs of infection. Stitches were removed and redressed with a Band-Aid. She has no pain with thumb flexion extension, no catching or triggering. She has sensation intact to light touch, has some subjective numbness on both sides of the thumb and throughout her other fingers well. Overall doing well. She should continue to protect her wound and avoid soaking or submersion. We will see her back in 2 weeks for recheck. [email or web address] Not available 07/13/2023 11:23:34 07/30/2023 07/30/2023 47-year-old female presents for follow-up of her left thumb status post trigger thumb release on 06/29/2023. This is her 2nd postop appointment. She feels good, reports 0/10 pain. No numbness. She does feel like the thumb is still stiff and is wondering if she needs therapy. Incision well healed. She has no pain with thumb flexion extension, no catching or triggering. She has sensation intact to light touch. Overall doing well. We discussed that she can work on stretching the thumb over the next few weeks to help with any residual stiffness. If in a few weeks she does not feel like she is making progress she may call in and we will send an order for OT. Otherwise we do not need to see her back for recheck. She is in agreement with this plan. [email or web address] Not available 07/30/2023 10:46:04 Plan of Treatment Reminders Order Date Submit Date Provider Last Modified By Organization Details Last Modified Time Details Appointments None recorded. Lab CMP, serum or plasma 2022 023 [email or web address] 146 Not available 3 16:49:43 CBC w/ auto diff 2022 023 [email or web address] 146 Not available 3 16:49:43 vitamin B12, serum 2022 023 [email or web address] 146 Not available 3 16:49:44 lipid panel, serum 2022 023 [email or web address] 146 Not available 3 16:49:43 TSH + free T4, serum 2022 023 HOLLY Not available 3 10:11:28 T3, free, serum or plasma 2022 023 [email or web address] 146 Not available 3 16:49:44 HbA1c (hemoglobin A1c), blood 2022 023 [email or web address] 146 Not available 3 16:49:44 insulin, serum 2022 023 HOLLY Not available 12:27:45 Referral None recorded. Procedures None recorded. Surgeries None recorded. Imaging XR, hand, 3 or more view 2022 023 [email or web address] [facility], [address], [place], [address], 23:53:09 US, gallbladder 2022 023 HOLLY Not available 14:14:28 Medication Orders Zepbound 2.5 mg/0.5 mL subcutaneou s pen injector 2022 023 HOLLY [id number], [address] , [place], [place], [id number], 3 11:52:48 Patient TargetsNo targets recorded. Patient InstructionsNo instructions recorded. Reason for Referral None Reported. Results Created Date Observation Date Name Description Value Unit Range Abnormal Flag Note LastModifiedBy Organization Detail LastModifiedTime 01/30/2001/29/2023 US, jesus sunshine r No observ ation record ed. [address] , [place], [address], 02/05/2023 16:21:23 02/18/20 23 02/15/2023 CT, kaleb y, w/wo contr ast No observ ation record ed. [address] (Imaging) [address], [place], [address], 05/04/2023 19:37:51 05/12/20 XR, hand, 3 or more view No observ ation record ed. [email or web address] [facility] [address], [place], [address], 05/12/2023 13:41:45 Result Notes None recorded. Problems Name Problem SNOMED Code Status Onset Date Resolution Date Notes Provider Name and Address Organization Details Recorded Time Bilateral carpal tunnel syndrome 4340589688068 9101 Active 2021 Not Available [facility] 3 18:10:22 Pain of bilateral hands 9581828404183 9109 Active 2021 Not Available [facility] 3 18:10:22 Pain of left hand 7929249259184 03 Active 2021 Not Available [facility] 3 18:10:22 Attention deficit hyperactiv ity disorder 789570387 Active 2019 Not Available [facility] 3 18:10:22 Hypothyroi dism 51925221 Active 2019 Not Available [facility] 3 18:10:22 Cough 18331270 Active 2021 Not Available [facility] 3 18:10:22 Carpal tunnel syndrome 63607493 Active 2021 Not Available [facility] 3 18:10:22 COVID-19 254847635 Active 2021 Not Available [facility] 3 18:10:22 Mild major depression 08956719 Active 2021 Not Available [facility] 3 18:10:22 Kidney disease 17854067 Active 2019 Not Available [facility] 3 18:10:22 Restless legs 66618488 Active 2022 Not Available [facility] 3 18:10:22 Right upper quadrant pain 312787509 Active 2022 Not Available [facility] 3 18:10:22 Hyperlipid emia 31680251 Active 2022 Not Available [facility] 3 18:10:22 Hydrourete r 09697000 Active 2022 Not Available [facility] 3 18:10:22 Trigger thumb of left hand 4736023086912 07 Active 2022 Not Available [facility] 3 18:10:22 Herpes labialis 2767142 Active 2022 YANI Toth [address] [facility], [facility] [address], [place], [address] , [facility] [employer] [facility] 11:11:29 Problem Notes None recorded. Procedures Surgical History Date Name Laterality Status Provider Name and Address Organization Details Recorded Time 06/16/20 release of trigger finger completed RUBEN Pedro [employer] [employer] [facility] 07/30/2023 11:25:14 05/24/20 hysteroscopy completed RUBEN Pedro [facility] 07/29/2023 14:55:58 09/22/19 Lithotripsy completed Not Available [facility] 10/15/19 07:27:47 05/03/20 09 thyroidectomy completed Not Available [facility] 2022 07:27:47 completed Not Available [facility] 10/14/2022 07:27:47 Lithotripsy completed Not Available [facility] 10/14/2022 07:27:47 completed Not Available [facility] 0 10/14/2022 07:27:47 completed Not Available [facility] 0 10/14/2022 07:27:47 Tubal Ligation completed Not Available [facility] 10/14/2022 07:27:47 Knee completed Not Available [facility] 08/2022 07:27:47 Imaging Results Imaging Date Name Status LastModified by Organiz ation Details LastModified Time 01/29/2023 US, gallbladder [email or web address] [address], [place], [address], 02/05/2023 16:21:23 02/15/2023 CT, kidney, w/wo contrast [email or web address] [place] [address] (Imaging) [address] [facility] [address], [place], [address], 05/04/2023 19:37:51 05/12/2023 XR, hand, 3 or more view completed partha [facility] [address], [place], [address], 05/12/2023 13:41:45 Procedure Notes None recorded. Medical Equipment None Reported. Allergies No known drug allergies Medications Name Sig Start Date Stop Date Status Note LastModified by Organization Details LastModified Time amoxicillin 500 mg capsule TK 1 C PO TID TAT active Not Available Not Available No t Available sodium chloride 5 % eye drops 07/29 completed Not Available Not Available Not Available medroxyprog esterone 10 mg tablet TAKE 1 TABLET BY MOUTH EVERY DAY 01/15 completed Not Available Not Available Not Available ropinirole 1 mg tablet TAKE 1 TO 2 TABLETS BY MOUTH EVERY NIGHT AT BEDTIME DIRECTED active Not Available Not Available No t Available atorvastati n 10 mg tablet TAKE 1 TABLET BY MOUTH EVERY DAY IN THE EVENING active Not Available Not Available No t Available azithromyci n 250 mg tablet TAKE 2 TABLETS (500 MG) BY ORAL ROUTE ONCE DAILY FOR 1 DAY THEN 1 TABLET (250 MG) BY ORAL ROUTE ONCE DAILY FOR 4 DAYS active Not Available Not Available No t Available valacyclovi r 1 gram tablet Take 2 tablets every 12 hours by oral route as needed for 1 day. active Not Available Not Available No t Available hydrocodone 5 mg-acetamin ophen 325 mg tablet TAKE 1 TABLET BY MOUTH EVERY 6 HOURS 07/30 completed Not Available Not Available Not Available ondansetron HCl 8 mg tablet 08/02 completed Not Available Not Available Not Available phenazopyri dine 200 mg tablet TAKE 1 TABLET BY MOUTH THREE TIMES DAILY FOR 3 DAYS 06/20 completed Not Available Not Available Not Available metronidazo le 0.75 % (37.5 mg/5 gram) vaginal gel INSERT 1 APPLICATO RFUL VAGINALLY AT BEDTIME FOR 5 DAYS 07/29 completed Not Available Not Available Not Available Medrol (Buzz) 4 mg tablets in a dose pack take as directed active Not Available Not Available No t Available bupivacaine HCl 0.5 % (5 mg/mL) injection solution Take 2 mg by injection route. 01/09 completed Not Available Not Available Not Available dextroamphe tamine-amph etamine 10 mg tablet 08/02 completed Not Available Not Available Not Available terconazole 0.8 % vaginal cream INSERT 1 APPLICATO RFUL VAGINALLY AT BEDTIME FOR 3 DAYS active Not Available Not Available No t Available phentermine 37.5 mg tablet TAKE ONE TABLET BY MOUTH EVERY DAY DIRECTED 2022 active Not Available Not Available Not Avai lable sulfamethox azole 800 mg-trimetho prim 160 mg tablet TK 1 T PO BID active Not Available Not Available No t Available tramadol 50 mg tablet TK 1 T PO Q 6 H PRN active Not Available Not Available No t Available ondansetron 8 mg disintegrat ing tablet 08/02 completed Not Available Not Available Not Available ketorolac 10 mg tablet 08/02 completed Not Available Not Available Not Available levothyroxi ne 100 mcg tablet TAKE 1 TABLET BY MOUTH EVERY DAY active Not Available Not Available No t Available oxycodone-a cetaminophe n 5 mg-325 mg tablet 08/02 completed Not Available Not Available Not Available levothyroxi ne 88 mcg tablet TAKE 1 TABLET BY MOUTH EVERY DAY IN THE MORNING 02/10 completed Not Available Not Available Not Available DOK 100 mg capsule TK ONE C PO BID 08/02 completed Not Available Not Available Not Available tamsulosin 0.4 mg capsule 08/02 completed Not Available Not Available Not Available dextroamphe tamine-amph etamine ER 20 mg 24hr capsule,ext end release TK 1 C PO QD IN THE MORNING UPON AWAKENING 08/02 completed Not Available Not Available Not Available Kenalog 10 mg/mL suspension for injection In office injection administe red by the provider 01/[address] [facility]: [phone] Not Available Not Available Not Available potassium citrate ER 10 mEq (1,080 mg) tablet,exte nded release TAKE 1 TABLET BY MOUTH TWICE DAILY active Not Available Not Available No t Available hydrocodone 7.5 mg-acetamin ophen 325 mg tablet TAKE 1 TABLET BY MOUTH EVERY 6 HOURS NEEDED FOR PAIN 08/25 completed Not Available Not Available Not Available cephalexin 500 mg capsule 08/02 completed Not Available Not Available Not Available levothyroxi ne 125 mcg tablet TK 1 T PO QD 08/02 completed Not Available Not Available Not Available prednisone 50 mg tablet TK 1 T PO QD FOR 5 DAYS active Not Available Not Available No t Available hyoscyamine 0.125 mg sublingual tablet 08/02 completed Not Available Not Available Not Available oxybutynin chloride ER 5 mg tablet,exte nded release 24 hr 08/02 completed Not Available Not Available Not Available codeine 10 mg-guaifene sin 100 mg/5 mL oral liquid TAKE 10 ML BY MOUTH EVERY 4 TO 6 HOURS NEEDED 07/29 completed Not Available Not Available Not Available alprazolam 2 mg tablet active Not Available Not Available Not Available levofloxaci n 500 mg tablet 08/02 completed Not Available Not Available Not Available oxycodone-a cetaminophe n 7.5 mg-325 mg tablet active Not Available Not Available Not Available hydrocodone 10 mg-chlorphe niramine 8 mg/5 mL oral susp extend.rel 12hr TK 5 ML PO Q 12 H PRN active Not Available Not Available No t Available ketoconazol e 2 % topical cream 08/25 completed Not Available Not Available Not Available oxybutynin chloride 5 mg tablet TK 1 T PO TID PRN active Not Available Not Available No t Available medroxyprog esterone 150 mg/mL intramuscul ar suspension ADMINISTE R 1 ML IN THE MUSCLE EVERY 12 WEEKS 01/09 completed Not Available Not Available Not Available levothyroxi ne 112 mcg tablet 08/02 completed Not Available Not Available Not Available medroxyprog esterone 150 mg/mL intramuscul ar syringe USE DIRECTED 01/09 completed Not Available Not Available Not Available bupropion HCl XL 150 mg 24 hr tablet, extended release TAKE 1 TABLET BY MOUTH EVERY DAY 01/09 completed Not Available Not Available Not Available nitrofurant oin monohydrate /macrocryst als 100 mg capsule TAKE ONE CAPSULE BY MOUTH TWICE DAILY FOR 5 DAYS 06/20 completed Not Available Not Available Not Available lidocaine (PF) 10 mg/mL (1 %) injection solution In office injection administe red by the provider 02/[address] [facility]: [phone]- [phone] Not Available Not Available Not Available Vyvanse 30 mg capsule 08/02 completed Not Available Not Available Not Available Vyvanse 50 mg capsule 08/02 completed Not Available Not Available Not Available Vyvanse 40 mg capsule TK ONE C PO D active Not Available Not Available No t Available Lo Loestrin Fe 1 mg-10 mcg (24)/10 mcg (2) tablet TAKE 1 TABLET BY MOUTH EVERY DAY active Not Available Not Available No t Available BinaxNOW COVID-19 Ag Self Test kit TEST DIRECTED TODAY 07/17 completed Not Available Not Available Not Available Vuity 1.25 % eye drops INSTILL 1 DROP IN BOTH EYES EVERY DAY NEEDED active Not Available Not Available No t Available Paxlovid 300 mg (150 mg x 2)-100 mg tablets in a dose pack 300 mg nirmatrel vir (two 150 mg tablets) with 100 mg ritonavir (one 100 mg tablet) with all three tablets taken together orally twice daily for 5 days active Not Available Not Available No t Available Zepbound 2.5 mg/0.5 mL subcutaneou s pen injector Inject 2.5 mg every week by subcutane ous route as directed. 2022 active Not Available Not Available Not Avai lable Vitals Date Recorded Body height Body mass index (BMI) Body weight Body temperature Heart rate Systolic blood pressure Diastolic blood pressure Provider Name and Address Organization Details Last Updated DateTime 3 152.4 cm 34.8 kg/m2 68546.4 4 g 97.4 [degF] 105 /min 120 mm[Hg] 82 mm[Hg] Anny Guillaume [facility] 3 11:35:20 Date Recorded Body height Body mass index (BMI) Body weight Provider Name and Address Organization Details Last Updated DateTime 05/12/2023 152.4 cm 33.2 kg/m2 34939.7 g OLAMIDE Batista [facility] 05/12/2023 11:17:30 Date Recorded Body height Body mass index (BMI) Body weight Pain severity - 0-10 verbal numeric rating [Score] - Reported Provider Name and Address Organization Details Last Updated DateTime 07/13/2023 152.4 cm 33.2 kg/m2 07783.7 g Clau Garcia Antwan [facility] 07/13/2023 10:08:12 Date Recorded Body height Body mass index (BMI) Body weight Pain severity - 0-10 verbal numeric rating [Score] - Reported Provider Name and Address Organization Details Last Updated DateTime 07/30/2023 152.4 cm 31.2 kg/m2 87302.78 g [address] [facility] 07/30/2023 10:18:46 Date Recorded Body height Body temperature Body mass index (BMI) Body weight Respiratory rate Oxygen saturation Oxygen saturation in Arterial blood by Pulse oximetry Heart rate Systolic blood pressure Diastolic blood pressure Provider Name and Address Organization Details Last Updated DateTime 3 152.4 cm 98.1 [degF] 34.8 kg/m2 46333.4 4 g 16 /min 98 % 98 % 109 /min 122 mm[Hg] 80 mm[Hg] Shanthi Kelly [facility] 3 11:25:54 Social History Question Answer Notes LastModified by Organizat ion Details LastModified Time Tobacco Smoking Status Never Smoker [facility] 07/13/2023 10:01:21 What Is Your Level Of Alcohol Consumption? None [id number] Information not available 10/14/2022 What Is Your Level Of Caffeine Consumption? Moderate [id number] Information not available 10/14/2022 How Much Tobacco Do You Chew? None [id number] Information not available 10/14/2022 In The 14 Days Before Symptom Onset, Have You Had Close Contact With A Laboratory-confi rmed COVID-19 While That Case Was Ill? No [email or web address] Information not available 07/13/2023 In The 14 Days Before Symptom Onset, Have You Had Close Contact With A Person Who Is Under Investigation For COVID-19 While That Person Was Ill? No [email or web address] Information not available 07/13/2023 Are You Currently Employed? Yes Information not available 07/13/2023 What Type Of Diet Are You Following? REGULAR [id number] Information not available 10/14/2022 Which Illicit Or Recreational Drugs Have You Used? None [email or web address] Information not available 07/13/2023 Do You Or Have You Ever Used E-cigarettes Or Vape? 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 No [email or web address] Information not available 07/13/2023 What Is The Fluoride Status Of Your Home? Unknown [email or web address] Information not available 07/13/2023 Are There Any Guns Present In Your Home? Yes Information not available 07/13/2023 Do You Use Insect Repellent Routinely? No [email or web address] Information not available 07/13/2023 Where Do You Live? [facility] [email or web address] Information not available 07/13/2023 What Was The Date Of Your Most Recent Tobacco Screening? 01/15/2023 Information not available 07/13/2023 Do You Have Any Pets? Yes [email or web address] Information not available 07/13/2023 Do You Use Your Seat Belt Or Car Seat Routinely? Yes [email or web address] Information not available 07/13/2023 Do You Have Smoke And Carbon Monoxide Detectors In Your Home? Yes [email or web address] Information not available 07/13/2023 Are You Passively Exposed To Smoke? No [email or web address] Information not available 07/13/2023 Do You Or Have You Ever Used Smokeless Tobacco? Never Used Smokeless Tobacco [id number] Information not available 10/14/2022 Are There Any Smokers In Your House? No [email or web address] Information not available 07/13/2023 How Much Tobacco Do You Smoke? No [id number] Information not available 10/14/2022 Do You Feel Stressed (tense, Restless, Nervous, Or Anxious, Or Unable To Sleep At Night)? [id number] [email or web address] Information not available 07/13/2023 Do You Use Any Illicit Or Recreational Drugs? No [email or web address] Information not available 07/13/2023 Do You Use Sunscreen Routinely? Yes [email or web address] Information not available 07/13/2023 Have You Recently Traveled Abroad? No [email or web address] Information not available 07/13/2023 Do You Have Any Dietary Restrictions? No Information not available 07/13/2023 Do You Or Have You Ever Used Any Other Forms Of Tobacco Or Nicotine? No Information not available 07/13/2023 Sex: Unknown Functional Status Question Answer Note LastModified by Organizat ion Details LastModified Time What is your exercise level? Occasional [id number] Information not available 10/14/2022 Mental Status None recorded. Family History Relationship Description Onset Age of this Age Resolved Age Notes LastModified by Organization Details LastModified Time Father No current problems or disability [id number] Not available 10/14/2022 07:27:47 Mother No current problems or disability [id number] Not available 10/14/2022 07:27:47 Maternal Grandmother Family history of malignant neoplasm [id number] Not available 10/14/2022 07:27:47 Medical History Condition Response KIDNEY STONES Y Gynecological History Statement/Question Response Abnormal Pap N Date of Last Mammogram 08/16/2013 Date of LMP 07/13/2019 Sexually Active? Y Menses Monthly Y Date of Last Pap 08/16/2017 Current Control Method Tubal Ligat ion Obstetrics History GPAL:G 3 P 0 0 0 3 Type Value Living 3 Total 3 Immunizations Vaccine Type Date Status Note Provider Nam e and Address Organization Details Recorded Time SARS-COV-2 (COVID-19) vaccine, UNSPECIFIED 1 completed Not Available [facility] 08/04/2023 18:10:23 SARS-COV-2 (COVID-19) vaccine, UNSPECIFIED 1 completed Not Available [facility] 08/04/2023 18:10:23 Past Encounters Encounter ID Performer Location Encounter Start Date Encounter Closed Date Diagnosis/Indication Diagnosis SNOMED-CT Code Diagnosis ICD10 Code Diagnosis Note [id number] [facility] [address] [place] [address] 02/10/2021 00:00:00 02/10/2021 21:49:06 [id number] [facility] [address] [place] [address] 05/13/2021 00:00:00 05/13/2021 14:18:26 [id number] [facility] [address] [place] [address] 06/20/2021 00:00:00 07/14/2021 22:49:15 [id number] [facility] [address] [place] [address] 08/20/2021 00:00:00 08/20/2021 16:38:32 [id number] [facility] [address] [place] [address] 01/09/2022 00:00:00 01/11/2022 22:31:59 [id number] [facility] [address] [place] [address] 01/14/2022 00:00:00 01/14/2022 17:33:30 [id number] [facility] [address] [place] [address] 02/24/2022 00:00:00 02/24/2022 17:02:57 [id number] [facility] [address] [place] [address] 03/31/2022 00:00:00 03/31/2022 16:43:26 [id number] [facility] [address] [place] [address] 06/30/2022 00:00:00 06/30/2022 17:23:36 [id number] [facility] [address] [place] [address] 07/17/2022 00:00:00 08/14/2022 16:51:54 [id number] [facility] [address] [place] [address] 08/25/2022 00:00:00 08/25/2022 12:33:58 [id number] YANI Toth [facility] [address] [place] [address] 01/15/2023 11:24:26 01/15/2023 12:12:55 Hypothyroidism 95823344 E03.9 on supplement and due for TFTs Attention deficit hyperactivity disorder 254001063 F90.9 stable on phentermin e which helps focus for patient. Restless legs 73835010 G 25.81 stable on requip 1mg 1-2 qhs Long-term drug therapy 701570285 Z79.899 routine cmp and cbc ordered as well as b12 Cholesterol screening 27 6528441 Z13.220 fasting lipids due Diabetes dionisio morales screening 759920671 Z13.1 screening diabetes due Body mass index 30+ - obesity 671860610 Z68.34 screenin insulin ordered with weight gain and bmi increase Right uppe r quadrant pain 892563271 R10.11 noted on exam today. refer for u/s trung bautista [id number] YANI Poritllo [facility] [address] [place] [address] 6 05/12/2023 11:12:04 05/12/2023 11:49:46 Pain of left hand [id number] M79.642 Trigger th umb of left hand [id number] 54425 M65.216 [id number] Marlon Batista MD [facility] [place] [address] [place] [address] 07/13/2023 10:00:16 07/13/2023 10:18:24 Trigger thumb of left hand [id number] 14175 M65.719 [id number] Rita Salvador NP [facility] [place] [address] [place] [address] 07/30/2023 10:16:33 07/30/2023 10:23:01 Pain of left hand [id number] 85542 M79.509 [id number] YANI Toth [facility] [place] [address] [place] [address] 07/30/2023 11:18:32 07/30/2023 12:04:30 Hypothyroidism [id number] E03.9 on supplement , stable. Attention deficit hyperactivity disorder [id number] F90.9 stable on phentermin e which helps focus for patient. Restless legs [id number] G 25.81 stable on requip 1mg 1-2 qhs Long-term drug therapy [id number] Z79.899 labs are UTD Body mass index 30+ - obesity [id number] Z68.34 pt interested in zepbound therapy as directed Health Concerns Section Related Observation LastModified by Organization Detai ls LastModified Time None Recorded Concern Status LastModified by Organization Details LastModified Time None Recorded Advance Directives Directive None Recorded Payers Encounter Date Sequence Insurance Name Policy Number Policy Tam Covered Member ID Tam Member ID Guarantor Name 01/15/2023 1 [place] [id number] [place] [id number] [place] Ca 05/12/2023 1 [place] [id number] [place] Ca [id number] Carrie Ca 07/13/2023 1 [place] [id number] Dalton Ca [id number] Carrie Ca 07/30/2023 1 [place] [id number] [place] Ca [id number] Carrie Ca 07/30/2023 1 [place] [id number] [place] Ca [id number] Carrie Ca Notes Date Note Type Note Provider Name and Address Organization Details Recorded Time 01/16/20 23 text/htm l Anxiety/DepressionReported bypatient.Severity:denies suicidal ideations; able to maintain relationships; does not interfere with activities of daily living Duration:infrequent Onset/Timing:gradual Context:no major life stressors Associated Symptoms:denies homicidal ideations; no significant weight gain; no significant weight loss; no visual/auditory hallucinations; no delusions; no shortness of breathHypothyroidismReported bypatient.Quality:not changing Onset/Timing:better Context/Risk:normal thyroid levels; no history of head or neck radiation during childhood; no history of thyroid disease; no history of hypothyroidism; no history of hyperthyroidism; no excess iron exposure;history of hypothyroidism;female gender Modifying Factors:medication Exercisegets exercise; uses exercose bike 1 time per week Associated Symptoms:no cold intolerance; no heat intolerance; no weight loss; no double vision; no dry eyes; no hoarseness; no difficulty swallowing; no neck masses; no deepening of the voice; no fast heart rate; no increased blood pressure; no palpitations; no chest pain; no chest tightess or pressure; no constipation; no diarrhea; no vomiting; no decreased appetite; no loose stools; no irregular menstrual periods; no excessive sweating; no joint pain; no numbness; no tingling of the hands or feet; no dry skin; no tremor; no nervousness; no anxiety; no depression; no fatigue; no sleep difficulties; no skin changes; no hair changes;weight gain ( lbs) YANI Toth [address] [facility] [address], [place], [address], [place] 02/07/2023 11:09:41 05/12/20 23 text/htm l 47-year-old female returns to clinic concerning left trigger thumb. She previously underwent bilateral carpal tunnel releases, most recently the right wrist in June of 2022 and received a Second corticosteroid injection into the left thumb. she states that her symptoms have since returned and she has now developed some stiffness in the tip of her thumb with the inability to fully extend. She does note continued locking more in full extension than when she fully flexes her thumb. She has continued taking oral and topical anti-inflammatories. She also notes some pain in the base of her thumb that has started more recently. She denies any numbness and tingling. YANI Portillo [address] [facility], [facility] [address], [place], [address], [place] 05/12/2023 13:45:00 07/30/20 23 text/htm l Adult ADHDReported bypatient.Timing of Symptoms:chronic ADHD Context:increased productivity at work; improved school performance; able to set limits with obligations; no dysfunction in family; no financial problems ADHD Severity:better Modifying factors:medications as directed ADHD Associated Symptoms Inattention:able to pay attention; well organized; does not make careless mistakes; not easily distracted; attention to detail; not forgetful; no difficulty focusing; not bored easily; no daydreaming; no confusion; no difficulty processing information; no difficulty following instructions ADHD Associated Symptoms Impulsivity:patient; does not interrupt conversations/activities; does not blurt out inappropriate comments; shows emotion with restraint ADHD Associated Symptoms Hyperactivity:does not fidget/squirm; no excessive talking; does not run/move in inappropriate situations; not constantly in motion; no difficulty with quiet tasks/activitiesAnxiety/Depressi onReported bypatient.Severity:denies suicidal ideations; able to maintain relationships; does not interfere with activities of daily living Duration:symptoms lasting over 2 weeks Onset/Timing:still present; stable Context:no major life stressors Associated Symptoms:denies homicidal ideations; no significant weight gain; no significant weight loss; no visual/auditory hallucinations; no delusions; no shortness of breathHypothyroidismReported bypatient.Quality:not changing Duration:constant Onset/Timing:still present Context/Risk:normal thyroid levels; no history of head or neck radiation during childhood; no history of thyroid disease; no history of hyperthyroidism; no excess iron exposure;history of hypothyroidism;female gender Modifying Factors:medication Exerciseno exercise Associated Symptoms:no cold intolerance; no heat intolerance; no weight loss; no weight gain; no double vision; no dry eyes; no hoarseness; no difficulty swallowing; no neck masses; no deepening of the voice; no fast heart rate; no increased blood pressure; no palpitations; no chest pain; no chest tightess or pressure; no constipation; no diarrhea; no vomiting; no decreased appetite; no loose stools; no irregular menstrual periods; no excessive sweating; no joint pain; no numbness; no tingling of the hands or feet; no dry skin; no tremor; no nervousness; no anxiety; no depression; no fatigue; no sleep difficulties; no skin changes; no hair changes YANI Toth [address] [place] [address], [address], [address], [place] [facility] 08/12/2023 21:26:16 OBGyn Episode No OBEpisode recorded.
[2024-11-10 13:13] LABS: Basophils Percent Auto 0.1 % (0.2-1.2); Eosinophils Absolute Auto 0.2 K/mm3 (0-0.3); Eosinophils Percent Auto 3.1 % (0-4.4); Hematocrit 43.4 % (37.0-47.0); Immature Granulocyte Absolute 0.03 K/mm3 (0.00-0.031); Immature Granulocyte Percent A 0.4 % (0-0.5); Lymphocytes Absolute Auto 1.96 K/mm3 (0.9-3.2); Lymphocytes Percent Auto 26.7 % (18.3-44.2); Mean Corpuscular HGB Conc 32.3 g/dl (32-36); Mean Corpuscular Hemoglobin 29.3 pg (26-34); Mean Corpuscular Volume 90.8 fl (80-100); Mean Platelet Volume 9.7 fl (7.4-10.4); Monocytes Absolute Auto 0.4 K/mm3 (0.1-0.6); Neutrophils Absolute Auto 4.7 K/mm3 (1.3-6.7); Neutrophils Percent Auto 63.7 % (45.5-73.1); Platelet Count Result 399 k/mm3 (150-375); Red Blood Count 4.78 M/mm3 (4.2-5.4); Red Cell Distribution Width 13.1 % (11.5-14.5); White Blood Count 7.4 K/mm3 (4.5-10.0)
[2024-11-10 13:23] LABS: Alanine Aminotransferase 21 U/L (6-35); Albumin Level 4.3 g/dL (3.5-5.1); Alkaline Phosphatase 62 U/L (38-126); Anion Gap 11 mmol/L (4-12); Aspartate Amino Transferase 21 U/L (14-36); Bilirubin,Total 0.7 mg/dL (0.2-1.3); Blood Urea Nitrogen 16 mg/dL (7-17); Calcium 9.4 mg/dL (8.4-10.2); Carbon Dioxide 24 mmol/L (22-30); Chloride 103 mmol/L (98-107); Estimated Glomerular Filt Rate 50; Glucose 89 mg/dL (65-110); Phosphorus 2.8 mg/dL (2.5-4.5); Potassium 4.7 mmol/L (3.4-5.0); Sodium 138 mmol/L (137-145)
[2024-11-10 13:33] LABS: Immunoglobulin A 177 mg/dL (70-400); Immunoglobulin G 1305 mg/dL (700-1600); Immunoglobulin M 280 mg/dL (40-230)
[2024-11-10 13:47] LABS: Creatinine Urine 413.2 mg/dL
[2024-11-10 13:48] LABS: Total Protein Urine Random < 5 mg/dL; Ur Ttl Prot Creatinine Ratio < 0.01 mg/mg (0-0.20)
[2024-11-10 13:55] LABS: Free T4 Free Thyroxine 1.69 ng/dL (0.78-2.19)
[2024-11-13 14:38] LABS: Kappa\\Lambda Light Chains 1.47 (0.26-1.65); Lambda Light Chain 19.3 mg/L (5.7-26.3)
[2024-11-13 18:34] LABS: Albumin 3.7 g/dL (3.8-4.8); Alpha 1 Globulin 0.4 g/dL (0.2-0.3); Alpha 2 Globulin 0.9 g/dL (0.5-0.9); Beta 1 Globulin 0.5 g/dL (0.4-0.6); Gamma Globulin 1.2 g/dL (0.8-1.7)
== END 2024-11-10 12:35 | disposition home or self-care (01) ==
PROVIDERS: PCP Physician Assistant; Referring Provider Internal Medicine Hematology & Oncology; Visit Provider Internal Medicine Nephrology
DX: E03.9 Hypothyroidism, unspecified (principal); D72.9 Disorder of white blood cells, unspecified; N20.0 Calculus of kidney; N18.31 Chronic kidney disease, stage 3a
CPT/HCPCS: 36415; 80053; 82570; 82784; 83883; 84100; 84155; 84156; 84165; 84439; 84443; 85025

== ENCOUNTER 2025-02-05 09:10 | Outpatient (CLI) | payer BC, SELFPAY ==
[2025-02-05 09:49] LABS: Basophils Percent Auto 0.1 % (0.2-1.2); Eosinophils Absolute Auto 0.3 K/mm3 (0-0.3); Eosinophils Percent Auto 3.3 % (0-4.4); Hematocrit 43.9 % (37.0-47.0); Immature Granulocyte Absolute 0.03 K/mm3 (0.00-0.031); Immature Granulocyte Percent A 0.4 % (0-0.5); Lymphocytes Absolute Auto 1.97 K/mm3 (0.9-3.2); Lymphocytes Percent Auto 24.9 % (18.3-44.2); Mean Corpuscular HGB Conc 31.9 g/dl (32-36); Mean Corpuscular Hemoglobin 28.5 pg (26-34); Mean Corpuscular Volume 89.2 fl (80-100); Mean Platelet Volume 9.7 fl (7.4-10.4); Monocytes Absolute Auto 0.4 K/mm3 (0.1-0.6); Monocytes Percent Auto 5.3 % (2.6-8.5); Neutrophils Absolute Auto 5.2 K/mm3 (1.3-6.7); Platelet Count Result 368 k/mm3 (150-375); Red Blood Count 4.92 M/mm3 (4.2-5.4); Red Cell Distribution Width 13.1 % (11.5-14.5); White Blood Count 7.9 K/mm3 (4.5-10.0)
[2025-02-05 10:29] LABS: Alanine Aminotransferase 21 U/L (6-35); Albumin Level 4.1 g/dL (3.5-5.1); Alkaline Phosphatase 56 U/L (38-126); Anion Gap 8 mmol/L (4-12); Aspartate Amino Transferase 27 U/L (14-36); Bilirubin,Total 0.8 mg/dL (0.2-1.3); Blood Urea Nitrogen 13 mg/dL (7-17); Calcium 9.3 mg/dL (8.4-10.2); Carbon Dioxide 24 mmol/L (22-30); Chloride 102 mmol/L (98-107); Cholesterol 236 mg/dL (0-200); Estimated Glomerular Filt Rate 53; Glucose 112 mg/dL (65-110); HDL Direct 65 mg/dL; Potassium 4.1 mmol/L (3.4-5.0); Sodium 134 mmol/L (137-145); Total Protein 7.9 g/dL (6.3-8.2); Triglycerides 163 mg/dL (<150)
[2025-02-05 10:32] LABS: Hemoglobin A1C 5.4 % (<5.7)
[2025-02-05 10:37] LABS: Free T3 2.87 pg/mL (2.71-6.16); Free T4 Free Thyroxine 1.48 ng/dL (0.78-2.19)
[2025-02-05 10:42] LABS: LDL Cholesterol Direct 110 mg/dL
[2025-02-05 11:36] LABS: Folic Acid 9.6 ng/mL (2.76->20)
== END 2025-02-05 09:11 | disposition home or self-care (01) ==
LOC: ANHLAB 09:12
PROVIDERS: PCP Physician Assistant; Visit Provider Physician Assistant
DX: E03.9 Hypothyroidism, unspecified (principal); Z13.1 Encounter for screening for diabetes mellitus; Z13.220 Encounter for screening for lipoid disorders; Z79.899 Other long term (current) drug therapy
CPT/HCPCS: 36415; 80053; 80061; 82607; 82746; 83036; 84439; 84443; 84481; 85025

== ENCOUNTER 2025-05-17 17:25 | Outpatient (CLI) | payer BC, SELFPAY ==
--- NOTE | ~2025-05-17 | XR_ITS ---
EXAMINATION: XR abdomen/kub 1V DATE: 05/17/2025 17:39 INDICATION: Side pain TECHNIQUE: A supine view of the abdomen on 2 radiographs was obtained. COMPARISON: None. FINDINGS: Moderate amount of air and stool in the nondilated large bowel. Small amount of air in nondilated small bowel. There are a few less than 1.0 cm calcifications projecting over the pelvis which may represent phleboliths, however, a distal ureteral stone or bladder stone or possible. No radiographic evidence for renal calculi. IMPRESSION: 1. Nonspecific abdomen with a moderate amount of stool. If symptoms persist or worsen, consider a short-term follow-up study or additional imaging for further assessment. Reviewed, dictated and finalized at location Q. IMPRESSION: 1. Nonspecific abdomen with a moderate amount of stool. If symptoms persist or worsen, consider a short-term follow-up study or additio nal imaging for further assessment.
--- NOTE | ~2025-05-17 | CT_ITS ---
CT ABDOMEN AND PELVIS WITHOUT CONTRAST Clinical History: Side pain Comparison: Abdominal x-ray today CT abdomen 02/15/2023 CT abdomen pelvis 09/27/2019 Technique: Unenhanced axial images lung bases to symphysis pubis Coronal, sagittal reformats CT images acquired with automatic exposure control for dose reduction DLP: 576 mGy-cm Findings: Without intravenous contrast, sensitivity for detecting visceral parenchymal abnormalities decreased. Lung bases: Clear. Visualized heart and pericardium: Unremarkable. Liver: Unremarkable. Gallbladder: Unremarkable. Spleen: Unremarkable. Pancreas: Unremarkable. Adrenal glands: Unremarkable. Kidneys: Right kidney- No hydronephrosis. A few tiny stones. Left kidney- No hydronephrosis. No renal stones. Distal esophagus/stomach: Unremarkable. Small bowel loops: Normal caliber and wall thickness. Colon: Normal caliber and wall thickness. Normal RLQ appendix. Nodes: No enlarged nodes. Scattered small mesenteric and retroperitoneal nodes. Peritoneum: No ascites. No free intraperitoneal air. Urinary bladder: Unremarkable. Uterus: Unremarkable. Adnexa: No masses. Bones: No acute bony abnormality. Soft tissues: Unremarkable. Unopacified abdominal aorta: No aneurysmal dilatation. IMPRESSION: 1. No acute findings. 2. A few tiny stones right kidney. No hydronephrosis. Reviewed, dictated and finalized at location R.
--- OUTSIDE RECORDS SUMMARY | 2025-05-17 17:29 | XMS_ITS | Clinical Summary ---
Author Organization 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 Name Role Phone Kailyn Segal Primary Care Provider [phone] Allergies No known active allergies Medications losartan [...] Comments Blood Pressure 142/88 08/09/2024 6:26 PM KENNEL HELPER Pulse 91 08/09/2024 6:26 PM KENNEL HELPER Temperature 36.7 C (98.1 F) 08/09/2024 6:26 PM KENNEL HELPER Respiratory Rate 16 08/09/2024 6:26 PM KENNEL HELPER Oxygen Saturation 98% 08/09/2024 6:26 PM KENNEL HELPER Inhaled Oxygen Concentration - - Weight 84.2 kg (185 lb 10 oz) 08/09/2024 4:48 PM KENNEL HELPER Height 152.4 cm (5') 08/09/2024 4:48 PM KENNEL HELPER Body Mass Index 36.25 08/09/2024 4:48 PM KENNEL HELPER Plan of Treatment Health Maintenance Due Date [...] Mammogram Screening 2015 COVID-19 Vaccine ( season) 2025 11/27/2022, 08/18/2021, 11/19/2020, Additional history exists Meningococcal B Vaccine Aged Out No l onger eligible based on patient's age to complete this topic Meningococcal Vaccine Aged Out No taran darshana eligible based on patient's age to complete this topic Pneumococcal Vaccine: Pediatrics (0 to 5 Years) and At-Risk Patients (6 to 49 Years) Aged Out No longer eligible based on patient's age to complete this topic RSV Immunizations Under 20 Months Aged Out No longer eligible based on patient's age to complete this topic [place] [place] [address] Care Teams Hot Plate Press Operator Relationship Specialty Start Date End Date Kailyn Segal PA PCP - General PHYSICIAN CUSTOMER MARKETING INTERN 10/19/23
--- OUTSIDE RECORDS SUMMARY | 2025-05-17 17:29 | XMS_ITS | Clinical Summary ---
Author Organization [facility] Address [address], [address] [address] Phone Care Team Providers Care Stucco Mason Name Role Phone Gavin Frank MD Primary Care Provider [phone] Abel Rodriguez MD Unavailable Tristen Carson DO Unavailable [phone] Medications pantoprazole (PROTONIX) 40 MG Tablet Delayed [...] Cervical Cancer Screening (CCS) 10/18/2005 HPV/Cotest 10/18/2005 Cologuard 10/18/2020 Colonoscopy 10/18/2020 Colorectal Cancer Screening 10/18/2020 Immunochemical Fecal Occult Blood 10/18/2020 Influenza Immunization (#1) 2025 SARS-COV-2 Immunization () 04/16/2025 Respiratory Syncytial Virus (RSV) Immunization (Adult) (1 - 1-dose 75+ series) 10/18/2050 Human Papillomavirus (HPV) Immunization Aged Out No longer eligible b ased on patient's age to complete this topic Meningococcal Immunization (ACWY) Aged Out No longer eligible based on patient's age to complete this topic Pneumococcal Immunization Combined Aged Out No longer eligible based on patient's age to complete this topic Rotavirus Immunization Aged Out No lo nger eligible based on patient's age to complete this topic [place] [address] [facility] Care Teams Stucco Mason Relationship Specialty Start Date End Date Gavin Frank MD [address] [place] [address] PCP - General Family Medicine 04/18/17 Abel Rodriguez MD [address] [facility] [address] [place] [address] Hospitalist Internal Medicine 04/18/17 Tristen Carson DO [address] [facility] [address] [place] [address] Consulting Physician Gastroenterology 04/18/17
--- OUTSIDE RECORDS SUMMARY | 2025-05-17 17:29 | XMS_ITS | Data Portability ---
Author Organization [place] [facility], Main Office Address [address] [place] [address] Care Team Providers Care Clinical Research Director Name Role Phone TJ DEVLIN Primary Care Provider [phone] TJ DEVLIN Referring Provider [phone] Assessment Encounter Date Assessment Date Assessment LastModified [...] this plan. [email or web address] Not available 07/30/2023 10:46:04 02/07/2025 02/07/2025 HPI: 49-year-old female presents today with right wrist pain that has been ongoing for two months. This is a result of an unclear etiology. Pain is located over the volar radial wrist. Describes the pain as intermittent and sharp. 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 She has tried ibuprofen and Tylenol with minimal relief. She works in [employer] She has a hx of bilateral carpal tunnel release. Also mentioned her numbness and tingling along the ulnar distribution of right hand that has been ongoing for a few weeks. Parasthesia is aggravated when her elbow is bent. Physical Exam: Right Hand General: Normal appearance. No acute distress. Inspection: No evidence of swelling, erythema, bruising or deformity. Palpation: Nontender to palpation ROM: Full ROM. No pain with ROM Special Test: No pain with ulnar or radial deviation. No pain with resisted wrist flexion or extension. Negative tinel's sign at cubital tunnel Motor: 5/5 strength. Sensation: Sensation intact. Imaging: XR reviewed, demonstrating normal findings Assessment & Plan: Likely experiencing tendinitis, we will begin with conservative management. Recommend a brace for immobilization. She states she has a brace at home. Rx for Meloxicam. Educated on not taking other anti-inflammatory medications with this medicine. Activity modification (reduction or abstinence from inciting activities If she would like PT, she may call the office for an order. Follow Up: As needed. All questions were answered. Patient verbalized understanding of treatment plan [email or web address] Not available 02/08/2025 12:04:14 Plan of Treatment Reminders Order Date Submit Date Provider Last Modified By Organization Details Last Modified Time Details Appointments None recorded. Lab None recorded. Referral physical therapist referral 2024 025 [email or web address] Not available 11:34:08 Procedures None recorded. Surgeries None recorded. Imaging XR, hand 2024 025 [email or web address] [facility] [place], [address], [place], [address], 5 12:04:18 XR, hand, 3 or more view 2022 023 [email or web address] [facility] [place], [address], [place], [address], 3 23:53:09 Medication Orders meloxicam 15 mg tablet 2024 025 [email or web address] [id number], [address] [facility], [place], [place], [id number], 5 11:04:08 Zepbound 2.5 mg/0.5 mL subcutaneou s pen injector 2022 023 [id number], [address] [facility], [place], [place], [id number], 16:13:27 Patient TargetsNo targets recorded. Patient InstructionsNo instructions recorded. Reason for Referral Physical Therapist Referral for Tendinitis of right wrist region R wrist Referring Physician: Lala Bella, Orthopedic Surgery, Encounter Date: 02/07/2025 Results Created Date Observation Date Name Description Value Unit Range Abnormal Flag Note LastModifiedBy Organization Detail LastModifiedTime 05/12/20 23 XR, hand, 3 or more view No observ ation record ed. [email or web address] [facility] [place] [address], [place], [address], 05/12/2023 13:41:45 02/08/20 25 XR, hand No observ ation record ed. iman [facility] [place] [address], [place], [address], 02/08/2025 12:04:18 Result Notes None recorded. Problems Name Problem SNOMED Code Status Onset Date Resolution Date Notes Provider Name and Address Organization Details Recorded Time Hypothyroi dism 42225575 Active 2019 Not Available [facility] 3 18:10:22 Attention deficit hyperactiv ity disorder 497319074 Active 2019 Not Available [facility] 3 18:10:22 Kidney disease 43770411 Active 2019 Not Available [facility] 3 18:10:22 Mild major depression 39035814 Active 2021 Not Available [facility] 3 18:10:22 Bilateral carpal tunnel syndrome 3853854883899 9101 Active 2021 Not Available [facility] 3 18:10:22 Pain of bilateral hands 3743628852627 9109 Active 2021 Not Available [facility] 3 18:10:22 Pain of left hand 9006485257953 03 Active 2021 Not Available [facility] 3 18:10:22 Carpal tunnel syndrome 53300027 Active 2021 Not Available [facility] 3 18:10:22 COVID-19 130870912 Active 11/18/ 2022 Not Available [facility] 3 18:10:22 Cough 16599884 Active 2021 Not Available [facility] 3 18:10:22 Restless legs syndrome 44705118 Active 2022 Not Available [facility] 3 18:10:22 Right upper quadrant pain 298040085 Active 2022 Not Available [facility] 3 18:10:22 Hyperlipid emia 46033589 Active 2022 Not Available [facility] 3 18:10:22 Hydrourete r 51245342 Active 2022 Not Available [facility] 3 18:10:22 Trigger thumb of left hand 0130904631142 07 Active 2022 Not Available [facility] 3 18:10:22 Herpes labialis 8820152 Active 2022 YANI Toth [address], [address] , [facility] 3 11:11:29 Pain of right hand 9304988859860 09 Active 2024 ILDA Simons, [facility] 5 16:16:42 Pain of right wrist 1111632649504 00 Active 2024 Carmen Bustamante ATC L null, [facility] 5 16:39:09 Tendinitis of right wrist region 1607927457116 9109 Active 2024 Carmen Bustamante ATC L null, [facility] 5 16:39:16 Problem Notes None recorded. Procedures Surgical History Date Name Laterality Status Provider Name and Address Organization Details Recorded Time 06/16/20 23 release of trigger finger completed RUBEN Pedro [facility] 07/30/2023 11:25:14 05/24/20 23 hysteroscopy completed RUBEN Pedro [facility] [employer] [facility] 07/29/2023 14:55:58 09/22/19 20 Lithotripsy completed Not Available [facility] 10/15/19 07:27:47 05/03/20 09 thyroidectomy completed Not Available [facility] 2022 07:27:47 completed Not Available [facility] 0 10/14/2022 07:27:47 Lithotripsy completed Not Available [facility] 10/14/2022 07:27:47 completed Not Available [facility] 0 10/14/2022 07:27:47 completed Not Available [facility] 0 10/14/2022 07:27:47 Tubal Ligation completed Not Available [facility] 10/14/2022 07:27:47 Knee completed Not Available [facility] 08/2022 07:27:47 Imaging Results None recorded. Procedure Notes None recorded. Medical Equipment None [...] ropinirole 1 mg tablet TAKE 1 TO 3 TABLETS BY MOUTH EVERY NIGHT AT BEDTIME active Not Available Not Available No t Available atorvastati n 10 mg tablet TAKE 1 TABLET BY MOUTH EVERY DAY IN THE EVENING 02/07 completed Not Available Not Available Not Available azithromyci n 250 mg tablet TAKE 2 TABLETS (500 MG) BY ORAL ROUTE ONCE DAILY FOR 1 DAY THEN 1 TABLET (250 MG) BY ORAL ROUTE ONCE DAILY FOR 4 DAYS active Not Available Not Available No t Available valacyclovi r 1 gram tablet TAKE 2 TABLETS BY MOUTH EVERY 12 HOURS FOR 1 DAILY NEEDED FOR FLARE UPS 02/07 completed Not Available Not Available Not Available hydrocodone 5 mg-acetamin ophen 325 mg tablet TAKE 1 TO 2 TABLETS BY MOUTH EVERY 6 HOURS NEEDED FOR PAIN 02/07 completed Not Available Not Available Not Available ondansetron HCl 8 mg tablet 08/02 completed Not Available Not Available Not Available meloxicam 15 mg tablet Take 1 tablet every day by oral route. 2024 active Not Available Not Available Not Avai lable phenazopyri dine 200 mg tablet TAKE 1 TABLET BY MOUTH THREE TIMES DAILY FOR 3 DAYS 06/20 completed Not Available Not Available Not Available metronidazo le 0.75 % (37.5 mg/5 gram) vaginal gel INSERT 1 APPLICATO RFUL VAGINALLY AT BEDTIME FOR 5 DAYS 07/29 completed Not Available Not Available Not Available bupivacaine HCl 0.5 % (5 mg/mL) injection solution Take 2 mg by injection route. 01/09 completed Not Available Not Available Not Available dextroamphe tamine-amph etamine 10 mg tablet 08/02 completed Not Available Not Available Not Available terconazole 0.8 % vaginal cream INSERT 1 APPLICATO RFUL VAGINALLY AT BEDTIME FOR 3 NIGHTS 02/07 completed Not Available Not Available Not Available phentermine 37.5 mg tablet TAKE ONE TABLET BY MOUTH EVERY DAY DIRECTED 2022 active Not Available Not Available Not Avai lable sulfamethox azole 800 mg-trimetho prim 160 mg tablet TAKE 1 TABLET BY MOUTH TWICE DAILY 02/07 completed Not Available Not Available Not Available tramadol 50 mg tablet TK 1 [...] TAKE 1 TABLET BY MOUTH EVERY DAY 02/07 completed Not Available Not Available Not Available amoxicillin 875 mg tablet TAKE 1 TABLET BY MOUTH EVERY 12 HOURS WITH FOOD 02/07 completed Not Available Not Available Not Available alprazolam 0.25 mg tablet TAKE 1 TABLET BY MOUTH 30 MINUTES PRIOR TO FLIGHT. MAY REPEAT DOSE NEEDED active Not Available Not Available No t Available DOK 100 mg capsule TK ONE [...] administe red by the provider 01/09 completed [facility]: [phone] Not Available Not [...] completed Not Available Not Available Not Available cyanocobala min (vit B-12) 1,000 mcg/mL injection solution INJECT 2ML UNDER THE SKIN ONCE MONTHLY active Not Available Not Available No t Available levothyroxi ne 125 mcg tablet TK 1 T PO QD 08/02 completed Not Available Not Available Not Available prednisone 50 mg tablet TK 1 T PO QD FOR 5 DAYS active Not Available Not Available No t Available hyoscyamine 0.125 mg sublingual tablet 08/02 completed Not Available Not Available Not Available losartan 25 mg tablet TAKE ONE TABLET BY MOUTH EVERY DAY active Not Available Not Available No t Available nystatin-tr iamcinolone 100,000 unit/g-0.1 % topical cream APPLY THIN LAYER TOPICALLY TO THE AFFECTED AREA TWICE DAILY NEEDED active Not Available Not Available No t Available BD Luer-Katina Syringe 3 mL 25 gauge x 1 USE DIRECTED ONCE MONTHLY. 02/07 completed Not Available Not Available Not Available oxybutynin chloride ER 5 mg tablet,exte nded release 24 hr 08/02 completed Not Available Not Available Not Available codeine 10 mg-guaifene sin 100 mg/5 mL oral liquid TAKE 10 ML BY MOUTH EVERY 4 TO 6 HOURS NEEDED 07/29 completed Not Available Not Available Not Available lisinopril 5 mg tablet TAKE 1 TABLET BY MOUTH EVERY DAY 02/07 completed Not Available Not Available Not Available alprazolam 2 mg tablet active Not Available Not Available Not Available levofloxaci n 500 mg tablet 08/02 completed Not Available Not Available Not Available oxycodone-a cetaminophe n 7.5 mg-325 mg tablet active Not Available Not Available Not Available estradiol 0.01% (0.1 mg/gram) vaginal cream INSERT 1 GRAM VAGINALLY TWICE WEEKLY active Not Available Not Available No t Available scopolamine 1 mg over 3 days transdermal patch APPLY 1 PATCH TOPICALLY TO THE SKIN 1 TIME FOR 1 DOSE 02/07 completed Not Available Not Available Not Available methylpredn isolone 4 mg tablets in a dose pack FOLLOW PACKAGE DIRECTION S 02/07 completed Not Available Not Available Not Available hydrocodone [...] Available Not Available Not Available metronidazo le 1 % topical gel APPLY THIN LAYER TO FRESHLY WASHED AND DRIED FACE TWICE DAILY. APPLY DAILY SPF. active Not Available Not Available No t Available lidocaine (PF) 10 mg/mL (1 %) injection solution In office injection administe red by the provider 02/10 completed [facility]: [phone] Not Available Not [...] TAKE 1 TABLET BY MOUTH EVERY DAY 02/07 completed Not Available Not Available Not Available Eclipse Syringe 3 mL 25 gauge x 1 USE DIRECTED ONCE MONTHLY active Not Available Not Available No t Available Blisovi Fe 09/04 (28) 1 mg-20 mcg (21)/75 mg (7) tablet TAKE 1 TABLET BY MOUTH DAILY active Not Available Not Available No [...] week by subcutane ous route as directed. 02/07 completed Not Available Not Available Not Available Vitals Date Recorded Body height Body mass index (BMI) Body weight Provider Name and Address Organization Details Last Updated DateTime 02/07/2025 152.4 cm 34.2 kg/m2 75585.66 g Toña Rivera [facility] 02/07/2025 16:10:53 Date Recorded Body height Body mass index (BMI) Body weight Provider Name and Address Organization Details Last Updated DateTime 05/12/2023 152.4 cm 33.2 kg/m2 47137.7 g Carmen Bustamante ATC L [facility] 05/12/2023 11:17:30 Date Recorded Body height Body mass index (BMI) Body weight Pain severity - 0-10 verbal numeric rating [Score] - Reported Provider Name and Address Organization Details Last Updated DateTime 07/13/2023 152.4 cm 33.2 kg/m2 [address] [facility] 07/13/2023 10:08:12 Date Recorded Body height Body temperature Body mass index (BMI) Body weight Respiratory rate Oxygen saturation Oxygen saturation in Arterial blood by Pulse oximetry Heart rate Systolic And Diastolic Provider Name and Address Organization Details Last Updated DateTime 3 152.4 cm 98.1 [degF] 34.8 kg/m2 64725.4 4 g 16 /min 98 % 98 % 109 /min 122/80 mm[Hg] Shanthi Kelly [facility] 3 11:25:54 Date Recorded Body height Body mass index (BMI) Body weight Pain severity - 0-10 verbal numeric rating [Score] - Reported Provider Name and Address Organization Details Last Updated DateTime 07/30/2023 152.4 cm 31.2 kg/m2 01472.78 g 1 Maricel Jose [facility] 07/30/2023 10:18:46 Social History Question Answer Notes LastModified by Organizat ion Details LastModified Time Tobacco Smoking Status [facility] 07/13/2023 10:01:21 What Is Your Level Of Caffeine Consumption? Moderate [id number] Information not available 10/14/2022 How Much Tobacco Do You Chew? None [id number] Information not available 10/14/2022 In The 14 Days Before Symptom Onset, Have You Had Close Contact With A Laboratory-confir med COVID-19 While That Case Was Ill? No [email or web address] Information not available 07/13/2023 In The 14 Days Before Symptom Onset, Have You Had Close Contact With A Person Who Is Under Investigation For COVID-19 While That Person Was Ill? No [email or web address] Information not available 07/13/2023 What Type Of Diet Are You Following? REGULAR [id number] Information not available 10/14/2022 Which Illicit Or Recreational Drugs Have You Used? None [email or web address] Information not available 07/13/2023 Have There Been Any Changes To Your Family Or Social Situation? No [email or web address] Information no t available 07/13/2023 What Is The Fluoride Status Of Your Home? Unknown [email or web address] Information not available 07/13/2023 Are There Any Guns Present In Your Home? Yes [email or web address] Information not available 07/13/2023 Do You Use Insect Repellent Routinely? No [email or web address] Information not available 07/13/2023 Where Do You Live? [facility] [email or web address] Information not available 07/13/2023 What Was The Date Of Your Most Recent Tobacco Screening? 02/07/2025 [email or web address] Information not available 02/07/2025 Do You Have Any Pets? Yes [email or web address] Information not available 07/13/2023 Do You Use Your Seat Belt Or Car Seat Routinely? Yes Information not available 07/13/2023 Do You Have Smoke And Carbon Monoxide Detectors In Your Home? Yes Information not available 07/13/2023 Are You Passively Exposed To Smoke? No [email or web address] Information no t available 07/13/2023 Are There Any Smokers In Your House? No [email or web address] Information not available 07/13/2023 How Much Tobacco Do You Smoke? No [id number] Information not available 10/14/2022 Do You Use Sunscreen Routinely? Yes Information not available 07/13/2023 Have You Recently Traveled Abroad? No [email or web address] Information not available 07/13/2023 Do You Have Any Dietary Restrictions? No [email or web address] Information not available 07/13/2023 Sex: Unknown Functional Status Question Answer Note LastModified by Organizat ion Details LastModified Time Do you use any illicit or recreational drugs? No [email or web address] Information not available 07/13/2023 Do you or have you ever used any other forms of tobacco or nicotine? No [email or web address] Information not available 07/13/2023 What is your level of alcohol consumption? None [id number] Information not available 10/14/2022 Do you or have you ever used smokeless tobacco? Never used smokeless tobacco MIGRATION.[id number] [id number] Information not available 10/14/2022 Are you currently employed? 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 Never used electronic cigarettes Information not available 07/13/2023 What is your exercise level? Occasional [id number] Information not available 10/14/2022 Mental Status Question Answer Note LastModified by Organization D etails LastModified Time Do you feel stressed (tense, restless, nervous, or anxious, or unable to sleep at night)? [id number] [email or web address] Information not available 07/13/2023 Family History Relationship Description Onset Age of this Age Resolved Age Notes LastModified by Organization Details LastModified Time Maternal Grandmother Family history of malignant neoplasm [id number] Not available 10/14/2022 07:27:47 Maternal Grandmother Hypertensive disorder [email or web address] Not available 2024 16:14:14 Maternal Grandmother Heart disease [email or web address] Not available 2024 16:15:17 Maternal Grandfather History of thrombosis [email or web address] Not available 02/07 16:14:29 Maternal Grandfather Diabetes mellitus [email or web address] Not available 2024 16:14:49 Maternal Grandfather Kidney disease [email or web address] Not available 2024 16:15:04 Medical History Condition Response KIDNEY STONES Y [...] (COVID-19) vaccine, UNSPECIFIED 1 completed Not Available [facility] 08/04/2023 18:10:23 SARS-COV-2 (COVID-19) vaccine, UNSPECIFIED 1 completed Not Available [facility] 08/04/2023 18:10:23 Past Encounters Encounter ID Performer Location Encounter Start Date Encounter Closed Date Diagnosis/Indication Diagnosis SNOMED-CT Code Diagnosis ICD10 Code Diagnosis IMO Codes Diagnosis Note [id number] YANI Toth [facility] Internal [facility] [place] [address] [place] [address] 02/10/2021 00:00:00 02/10/2021 21:49:06 [id number] Mahad Arevalo MD [facility] [place] [address] [place] [address] 05/13/2021 00:00:00 05/13/2021 14:18:26 [id number] YANI Toth [facility] [place] [address] [place] [address] 06/20/2021 00:00:00 07/14/2021 22:49:15 [id number] Mahad Arevalo MD [facility] [place] [address] [place] [address] 08/20/2021 00:00:00 08/20/2021 16:38:32 [id number] Kostas Velarde MD [facility] [place] [address] [place] [address] 01/09/2022 00:00:00 01/11/2022 22:31:59 [id number] Mahad Arevalo MD [facility] [place] [address] [place] [address] 01/14/2022 00:00:00 01/14/2022 17:33:30 [id number] Mahad Arevalo MD [facility] [place] [address] [place] [address] 02/24/2022 00:00:00 02/24/2022 17:02:57 [id number] Mahad Arevalo MD [facility] [place] [address] [place] [address] 03/31/2022 00:00:00 03/31/2022 16:43:26 [id number] Mahad Arevalo MD [facility] [place] [address] [place] [address] 06/30/2022 00:00:00 06/30/2022 17:23:36 [id number] YANI Toth [facility] [place] [address] [place] [address] 07/17/2022 00:00:00 08/14/2022 16:51:54 [id number] Mahad Arevalo MD [facility] Orth[facility] [place] [address] [place] [address] 08/25/2022 00:00:00 08/25/2022 12:33:58 [id number] YANI Toth [facility] Internal Med [place] [address] [place] [address] 01/15/2023 11:24:26 01/15/2023 12:12:55 Hypothyroidism 90877557 E03.9 on supplement and due for TFTs Attention deficit hyperactivity disorder 977745762 F90.9 stable on phentermin e which helps focus for patient. Restless l egs syndrome 79359227 G25.81 stable on requip 1mg 1-2 qhs Long-term drug therapy 072835098 Z79.899 routine cmp and cbc ordered as well as b12 Cholesterol screening 27 2264494 Z13.220 fasting lipids due Diabetes m ellitus screening 374115372 Z13.1 screening diabetes due Body mass index 30+ - obesity 025520262 Z68.34 screenin insulin ordered with weight gain and bmi increase Right uppe r quadrant pain 589424091 R10.11 noted on exam today. refer for u/s trung r [id number] Marlon Batista MD [facility] [place] [address] [place] [address] 05/12/2023 11:12:04 05/12/2023 11:49:46 Pain of left hand 2181644617 83632 M79.642 Trigger th umb of left hand 9181446564 77023 M65.716 [id number] Marlon Batista MD [facility] [place] [address] [place] [address] 07/13/2023 10:00:16 07/13/2023 10:18:24 Trigger thumb of left hand 4638657521 75858 M65.008 [id number] Marlon Batista MD [facility] [place] [address] [place] [address] 07/30/2023 10:16:33 07/30/2023 10:23:01 Pain of left hand 9248675532 85222 M79.998 [id number] YANI Toth [facility] Internal [place] [address] [place] [address] 07/30/2023 11:18:32 07/30/2023 12:04:30 Hypothyroidism 85073181 E03.9 on supplement , stable. Attention deficit hyperactivity disorder 284265331 F90.9 stable on phentermin e which helps focus for patient. Restless l egs syndrome 53348063 G25.81 stable on requip 1mg 1-2 qhs Long-term drug therapy 179730650 Z79.899 labs are UTD Body mass index 30+ - obesity 086920310 Z68.34 pt interested in zepbound therapy as directed [id number] Marlon Batista MD [facility] [place] [address] [place] [address] 02/07/2025 15:50:49 02/07/2025 16:59:26 Pain of right hand 4014002624 82800 M79.813 8703457 Tendinitis of right wrist region 0873650320 6316797 M77.8 1119908 Health Concerns Section Related Observation LastModified by Organization Detai ls LastModified Time None Recorded Concern Status LastModified by Organization Details LastModified Time None Recorded Advance Directives Directive None Recorded Payers Insurance Date Sequence Insurance Name Policy Number Policy Tam Covered Member ID Tam Member ID Guarantor Name 02/07/2025 1 [facility] ([facility] [id number] [place] Ca [id number] Carrie [place] Notes Date Note Type Note Provider Name and Address Organization Details Recorded Time 3 text/html 47-year-old female returns to clinic concerning left [...] any numbness and tingling. YANI Portillo [address], [facility] [address], [place], [address], [place] [facility] 05/12/2023 13:45:00 3 text/html Anxiety/DepressionReported by PatientHPIFor severity, patient reportsdenies suicidal ideations,able to maintain relationships, anddoes not interfere with activities of daily living. For duration, patient reportssymptoms lasting over 2 weeks. For onset/timing, patient reportsstill present(stable). For context, patient reportsno major life stressors. For associated symptoms, patient reportsdenies homicidal ideations,no significant weight gain,no significant weight loss,no visual/auditory hallucinations,no delusions, andno shortness of breath. Adult ADHDReported by PatientPsychiatry ADHDFor timing of symptoms, patient reportschronic. For adhd context, patient reportsincreased productivity at work,improved school performance,able to set limits with obligations,no dysfunction in family, andno financial problems. For adhd severity, patient reportsbetter. For modifying factors, patient reportsmedications as directed. For adhd associated symptoms inattention, patient reportsable to pay attention,well organized,does not make careless mistakes,not easily distracted,attention to detail,not forgetful,no difficulty focusing,not bored easily,no daydreaming,no confusion,no difficulty processing information, andno difficulty following instructions. For adhd associated symptoms impulsivity, patient reportspatient,does not interrupt conversations/activities,do es not blurt out inappropriate comments, andshows emotion with restraint. For adhd associated symptoms hyperactivity, patient reportsdoes not fidget/squirm,no excessive talking,does not run/move in inappropriate situations,not constantly in motion, andno difficulty with quiet tasks/activities. HypothyroidismReported by PatientHPIFor context/risk, patient reportshistory of hypothyroidismandfemale genderbut reportsnormal thyroid levels,no history of head or neck radiation during childhood,no history of thyroid disease,no history of hyperthyroidism, andno excess iron exposure. For exercise, patient reportsno exercise. For quality, patient reportsnot changing. For duration, patient reportsconstant. For onset/timing, patient reportsstill present. For modifying factors, patient reportsmedication. For associated symptoms, patient reportsno cold intolerance,no heat intolerance,no weight loss,no weight gain,no double vision,no dry eyes,no hoarseness,no difficulty swallowing,no neck masses,no deepening of the voice,no fast heart rate,no increased blood pressure,no palpitations,no chest pain,no chest tightess or pressure,no constipation,no diarrhea,no vomiting,no decreased appetite,no loose stools,no irregular menstrual periods,no excessive sweating,no joint pain,no numbness,no tingling of the hands or feet,no dry skin,no tremor,no nervousness,no anxiety,no depression,no fatigue,no sleep difficulties,no skin changes, andno hair changes. AYNI Toth [address], [address], [place] - [facility] 08/12/2023 21:26:16 OBGyn Episode No OBEpisode recorded.
--- OUTSIDE RECORDS SUMMARY | 2025-05-17 17:29 | XMS_ITS | Clinical Summary ---
Author Organization [facility] [employer] Address [address] [facility] [address] Care Team Providers Care Program Management Professional Name Role Phone Gavin Frank MD Primary Care Provider [phone] Source Comments [facility],non-owned Affiliates and Associated Physician Practices is amultiple site organization consisting of ambulatory clinics and hospital sitesin [place] and [place]. This disclosure is being madepursuant to the Care Everywhere program and may not contain all information available regarding this patient. Last updated 18.[facility] [employer] Social History Tobacco Use Types Packs/Day Years Used Date Smoking Tobacco: Never Assessed Comments Unknown Sex and Gender Information Value Date Recorded Sex Assigned at Not on file Legal Sex Female 6:23 AM FLAME DEGREASER Gender Identity Not on file Sexual Orientation [...] SCREENING 1975 LIPID TESTING 1975 MAMMOGRAM 1975 HIV SCREENING 10/18/1990 HEPATITIS C SCREENING 10/14/1993 DTAP/TDAP/TD VACCINES (1 - Tdap) 10/18/1994 HEPATITIS B VACCINE (1 of 3 - 19+ 3-dose series) 10/18/1994 PAP SMEAR 10/18/1996 DEPRESSION SCREENING 08/16/2024 COVID-19 VACCINE (2023-2 5 season) 2025 INFLUENZA VACCINE (#1) 2025 ZOSTER VACCINE (1 of 2) 10/18/2025 HIB [...] patient's age to [place] [address] [facility] Member Subscriber Plan / Payer (Ef fective 2022-Present) Name:Amada Ca Relation to Subscriber:Spouse Name:ZULEMA CA Date of :1973 Address: [address] [place] [address] Payer ID:[id number] (NAIC) Type:PPO Address: [address] [place] [id number] Care Teams Program Management Professional Relationship Specialty Start Date End Date Gavin Frank MD [address] [place] [address] PCP - General 12/05/18
--- OUTSIDE RECORDS SUMMARY | 2025-05-17 17:29 | XMS_ITS | Clinical Summary ---
Author Organization [facility] Address [facility] [place] [address] Care Team Providers Care Patient Resource Coordinator Name Role Phone Kailyn Segal Primary Care Pr ovider Tristen Livingston MD Unavailable [phone] Allergies No known active allergies Medications Blisovi Fe 09/04, 28, 1 mg-20 mcg (21)/75 mg (7) per [...] 1 tablet (88 mcg total) by mouth professional system administrator before breakfast 4 Active phentermine (ADIPEX-P) 37.5 mg tabletIndications :Weight Loss Management for Obese Patient (BMI >= 30) Take 1 tablet (37.5 mg total) by mouth daily before breakfast 3 4 Active pilocarpine HCl (Vuity) 1.25 % drops ophthalmic solutionIndicatio ns:supplement Administer 1 drop into both eyes 2 (two) times a day as needed Active estradioL (ESTRACE) 0.01 % (0.1 mg/gram) vaginal creamIndications: Atrophy of Vulva Insert 2 g into the vagina 2 (two) times a week 4 Active losartan (COZAAR) 25 mg tabletIndications :hypertension Take 1 tablet (25 mg total) by mouth every morning Active cyanocobalamin (Vitamin B-12) 1,000 mcg/mL injection INJECT 2 ML UNDER THE SKIN ONCE MONTHLY 4 Active valACYclovir (VALTREX) 1 gram tablet TAKE 2 TABLETS BY MOUTH EVERY 12 HOURS FOR 1 DAILY NEEDED FOR FLARE UPS 4 Active Active Problems Problem Noted Date [...] on file Legal Sex Female 10:58 AM COMPUTER FORENSICS ANALYST Gender Identity Not on file Sexual Orientation Not on file Obstetrics History Last Filed Vital Signs Vital Sign Reading Time Taken Comments Blood Pressure 120/81 12/12/2024 8:40 AM CDT Pulse 109 12/12/2024 8:40 AM CDT Temperature 36.4 C (97.6 F) 12/12/2024 8:40 AM CDT Respiratory Rate 18 12/12/2024 8:40 AM CDT Oxygen Saturation 99% 12/12/2024 8:40 AM CDT Inhaled Oxygen Concentration - - Weight 80.8 kg (178 lb 3.2 oz) 12/12/2024 8:40 A M CDT Height 152.8 cm (5' 0.16) 12/12/2024 8:40 AM CD T Body Mass Index 34.62 12/12/2024 8:40 AM CDT Plan of Treatment Health Maintenance Due Date Last Done Comments Breast Cancer Screening-Mammogram 1975 Cervical Cancer Screening 1975 Colon Cancer Screening-Colonoscopy 1975 Depression Screening 1975 Hepatitis C Screening 1975 DTaP/Tdap/Td Vaccine (1 - Tdap) 10/18/1986 Hepatitis B Screening 10/18/1993 Regular Well Visit/Exam 18-64 10/18/1993 Covid-19 Vaccine ( season) 2025 11/27/2022, 08/18/2021, 11/18/2020, Additional history exists Influenza Vaccine (#1) 2025 Pneumococcal vaccine <65 Aged Out No longer eligible based on patient's age to complete this topic Insurance BLUE ACCESS OOS ANTHEM TRADITIONAL ANTHEM ACCESS BLUE ACCESS OOS Care Teams Patient Resource Coordinator Relationship Specialty Start Date End Date Kailyn Segal PA [address] [place] [address] PCP - General Physician Varnisher Plasticoater 03/07/24 Tristen Livingston MD [address] [facility] 8 DIV IM BONE MARROW TRANSPLANT, , [place] [address] Medical Oncologist/Database Coordinator Medical Oncology 12/01/24
--- OUTSIDE RECORDS SUMMARY | 2025-05-17 17:29 | XMS_ITS | Clinical Summary ---
Author Organization [facility] Address [address] [place] [address] Phone Care Team Providers Care Electrical And Radio Mock Up Mechanic Name Role Phone Unavailable Primary Care Provider [...] Encounters Date Type Department Care Team Description 05/01/2025 External Device Data STL ABSTRACTION Provider, Abstract 03/20/2025 External Device Data STL ABSTRACTION Provider, Abstract 02/28/2025 External Device Data STL ABSTRACTION Provider, Abstract 02/27/2025 External Device Data STL ABSTRACTION Provider, Abstract [...] on file Legal Sex Female 5:46 AM LIFE SCIENCE TECHNICIAN Gender Identity Not on file Sexual Orientation Not on file Last Filed Vital Signs Vital Sign Reading Time Taken Comments Blood Pressure 134/81 11/23/2024 2:34 PM CDT Pulse 113 11/23/2024 2:34 PM CDT Temperature 36.9 C (98.4 F) 11/23/2024 2:34 PM CDT Respiratory Rate 16 11/23/2024 2:34 PM CDT Oxygen Saturation 96% 11/23/2024 2:34 PM CDT Inhaled Oxygen Concentration - - Weight 80.3 kg (177 lb) 11/23/2024 2:34 PM CDT Height 152.4 cm (5') 05/04/2024 2:48 PM CDT Body Mass Index 34.57 05/04/2024 2:48 PM CDT Plan of Treatment Upcoming Encounters Date Type Department Care Team (Late st Contact Info) Description 08/31/2025 9:00 AM LIFE SCIENCE TECHNICIAN Office Visit [facility] Oncology and Hematology [facility] [address] [facility] [address] [place] [address] Issac Jaimes MD [address] [facility] [address] [place] [address] Health Maintenance Due Date Last Done Comments Pre-Diabetes and Diabetes Screening 1975 DTAP/TDAP/TD VACCINES (1 - Tdap) 10/18/1994 HEPATITIS B VACCINES (1 of 3 - 19+ 3-dose series) 12/1994 HPV/Cotest (21-29) 10/18/1996 CERVICAL CANCER SCREENING 10/18/2005 HPV/Cotest (30-65) 10/18/2005 PAP SMEAR 10/18/2005 BREAST CANCER SCREENING 2015 COLORECTAL SCREENING 10/18/2020 Colorectal Cancer Screening 10/18/2020 FIT-DNA Q 3 years 10/18/2020 FIT/FOBT Q 1 year 10/18/2020 Flex Sig/CT Colonography Q 5 years 10/18/2020 INFLUENZA VACCINE (#1) 2025 Insurance BS BLUE ACCESS/TRUE BLUE PPO BS BLUE ACCESS/TRUE BLUE PPO BCBS BLUE ACCESS/TRUE BLUE PPO Advance Directives For more information, please contact: [phone] * Full Code (Latest Code Status on File) Date Activated Date Inactivated Comments 05/03/2009 11:23 AM 05/04/2009 10:51 AM * Full Code Date Activated Date Inactivated Comments 05/03/2009 7:24 AM 05/03/2009 11:23 AM
== END 2025-05-17 17:26 | disposition home or self-care (01) ==
PROVIDERS: PCP Physician Assistant; Visit Provider Physician Assistant Medical
DX: N20.0 Calculus of kidney (principal)
CPT/HCPCS: 74018; 74176

== ENCOUNTER 2025-05-18 15:27 | Outpatient (CLI) | payer BC, SELFPAY ==
--- OUTSIDE RECORDS SUMMARY | 2025-05-18 15:30 | XMS_ITS | Clinical Summary ---
Author Organization [facility] [employer] Address [address] [facility] [place] [address] Care Team Providers Care Park Guard Name Role Phone Gavin Frank MD Primary Care Provider [phone] Source Comments [facility],non-owned Affiliates and Associated Physician Practices is amultiple site organization consisting of ambulatory clinics and hospital sitesin [place], [place], [place] and [place]. This disclosure is being madepursuant to the Care Everywhere program and may not contain all information available regarding this patient. Last updated 18.[facility] [employer] Social History Tobacco Use Types Packs/Day Years Used Date Smoking Tobacco: Never Assessed Comments Unknown Sex and Gender Information Value Date Recorded Sex Assigned at Not on file Legal Sex Female 6:23 AM DIRECTOR OF INCOME TAX Gender Identity Not on file Sexual Orientation [...] patient's age to complete [place] [address] [facility] Member Subscriber Plan / Payer (Ef fective 2022-Present) Name:Amada Ca Relation to Subscriber:Spouse Name:ZULEMA CA Date of :1973 Address: [address] [place] [address] Payer ID:[id number] (NAIC) Type:PPO Address: [address] [place] [id number] Care Teams Park Guard Relationship Specialty Start Date End Date Gavin Frank MD [address] [place] [address] PCP - General 12/05/18
--- OUTSIDE RECORDS SUMMARY | 2025-05-18 15:30 | XMS_ITS | Clinical Summary ---
Author Organization [facility] Address [address] [place] [address] Phone Care Team Providers Care Mail Distribution Clerk Name Role Phone Unavailable Primary Care Provider [...] on file Legal Sex Female 5:46 AM AMMONIUM NITRATE CRYSTALLIZER Gender Identity Not on file Sexual Orientation [...] st Contact Info) Description 08/31/2025 9:00 AM AMMONIUM NITRATE CRYSTALLIZER Office Visit [facility] Oncology and Hematology [facility] [address] [facility] [address] [place] [address] Issac Jaimes MD [address] [facility] [address] [place] [address] Health Maintenance Due Date Last [...] Advance Directives For more information, please contact: [phone] * Full Code (Latest Code Status on File) Date Activated Date Inactivated Comments 05/03/2009 11:23 AM 05/04/2009 10:51 AM * Full Code Date Activated Date Inactivated Comments 05/03/2009 7:24 AM 05/03/2009 11:23 AM
--- OUTSIDE RECORDS SUMMARY | 2025-05-18 15:30 | XMS_ITS | Clinical Summary ---
Author Organization [facility] Address [facility] [place] [address] Care Team Providers Care Aerospace Manager Name Role Phone Kailyn Segal Primary Care Pr ovider Tristen Livingston MD Unavailable [phone] Allergies No known active allergies Medications Blisovi [...] 1 tablet (88 mcg total) by mouth director perioperative before breakfast 4 Active phentermine (ADIPEX-P) 37.5 [...] on file Legal Sex Female 10:58 AM BRAKE SPECIALIST Gender Identity Not on file Sexual Orientation [...] ANTHEM ACCESS BLUE ACCESS OOS Care Teams Aerospace Manager Relationship Specialty Start Date End Date Kailyn Segal PA [address] [place] [address] PCP - General Physician Pourer Metal 03/07/24 Tristen Livingston MD [address] [facility] 8 DIV IM BONE MARROW TRANSPLANT, , [place] [address] Medical Oncologist/Lard Tub Washer Medical Oncology 12/01/24
--- OUTSIDE RECORDS SUMMARY | 2025-05-18 15:30 | XMS_ITS | Clinical Summary ---
Author Organization [facility] Address [address] [place] [address] Care Team Providers Care Principle Software Engineer Name Role Phone Kailyn Segal Primary Care Provider [phone] Allergies No known active allergies Medications losartan [...] Comments Blood Pressure 142/88 08/09/2024 6:26 PM RECORDER GRAVITY PROSPECTING Pulse 91 08/09/2024 6:26 PM RECORDER GRAVITY PROSPECTING Temperature 36.7 C (98.1 F) 08/09/2024 6:26 PM RECORDER GRAVITY PROSPECTING Respiratory Rate 16 08/09/2024 6:26 PM RECORDER GRAVITY PROSPECTING Oxygen Saturation 98% 08/09/2024 6:26 PM RECORDER GRAVITY PROSPECTING Inhaled Oxygen Concentration - - Weight 84.2 kg (185 lb 10 oz) 08/09/2024 4:48 PM RECORDER GRAVITY PROSPECTING Height 152.4 cm (5') 08/09/2024 4:48 PM RECORDER GRAVITY PROSPECTING Body Mass Index 36.25 08/09/2024 4:48 PM RECORDER GRAVITY PROSPECTING Plan of Treatment Health Maintenance Due Date [...] patient's age to complete this topic Insurance [place] [address] Care Teams Principle Software Engineer Relationship Specialty Start Date End Date Kailyn Segal PA PCP - General PHYSICIAN ACCOUNTING GENERALIST 10/19/23
[2025-05-18 15:55] LABS: Albumin Level 4.3 g/dL (3.5-5.1); Anion Gap 6 mmol/L (4-12); Blood Urea Nitrogen 16 mg/dL (7-17); Calcium 9.4 mg/dL (8.4-10.2); Carbon Dioxide 26 mmol/L (22-30); Chloride 105 mmol/L (98-107); Estimated Glomerular Filt Rate 43; Glucose 87 mg/dL (65-110); Potassium 4.4 mmol/L (3.4-5.0); Sodium 137 mmol/L (137-145)
[2025-05-18 16:07] LABS: Parathyroid Intact 45.4 pg/mL (14.5-75.2)
[2025-05-18 16:44] LABS: Total Protein Urine Random < 5 mg/dL; Ur Ttl Prot Creatinine Ratio < 0.01 mg/mg (0-0.20)
== END 2025-05-18 15:28 | disposition home or self-care (01) ==
LOC: ANHLAB 15:28
PROVIDERS: PCP Physician Assistant; Visit Provider Internal Medicine Nephrology
DX: N18.31 Chronic kidney disease, stage 3a (principal); N20.0 Calculus of kidney; E55.9 Vitamin D deficiency, unspecified; N25.81 Secondary hyperparathyroidism of renal origin
CPT/HCPCS: 36415; 80069; 82306; 82570; 83970; 84156

== ENCOUNTER 2025-05-29 10:27 | Outpatient (CLI) | payer BC, SELFPAY ==
--- NOTE | ~2025-05-29 | XR_ITS ---
EXAMINATION: XR chest 2V, 05/29/2025 10:40 CDT HISTORY: Pleurodynia; PT C/O CP INTO RT POSTERIOR SHOULDER PAIN COMPARISON: No comparisons available. Technique: 2 views obtained. Findings: The lungs are clear, no effusion. No pneumothorax. Heart is normal size. Mediastinal and hilar contours are within normal limits. Bony thorax no acute abnormality. Impression: No acute cardiopulmonary abnormality. Reviewed, dictated and finalized at location P. Impression: No acute cardiopulmonary abnormality.
--- OUTSIDE RECORDS SUMMARY | 2025-05-29 12:17 | XMS_ITS | Clinical Summary ---
Author Organization [facility] Address [address], [address] [address] Phone Care Team Providers Care Assistant Sales Director Name Role Phone Gavin Frank MD Primary Care Provider [phone] Abel Rodriguez MD Unavailable [phone] Tristen Carson DO Unavailable [phone] Medications pantoprazole (PROTONIX) 40 MG Tablet [...] age to complete this [place] [address] [facility] Care Teams Assistant Sales Director Relationship Specialty Start Date End Date Gavin Frank MD [address] [place] [address] PCP - General Family Medicine 04/18/17 Abel Rodriguez MD [address] [facility] [address] [place] [address] Hospitalist Internal Medicine 04/18/17 Tristen Carson DO [address] [facility] [address] [place] [address] Consulting Physician Gastroenterology 04/18/17
--- OUTSIDE RECORDS SUMMARY | 2025-05-29 12:17 | XMS_ITS | Clinical Summary ---
Author Organization [facility] Address [address] [place] [address] Care Team Providers Care Plate Grinder Name Role Phone Kailyn Segal Primary Care Provider [phone] Allergies No known active allergies Medications losartan [...] Comments Blood Pressure 142/88 08/09/2024 6:26 PM WET END SUPERVISOR Pulse 91 08/09/2024 6:26 PM WET END SUPERVISOR Temperature 36.7 C (98.1 F) 08/09/2024 6:26 PM WET END SUPERVISOR Respiratory Rate 16 08/09/2024 6:26 PM WET END SUPERVISOR Oxygen Saturation 98% 08/09/2024 6:26 PM WET END SUPERVISOR Inhaled Oxygen Concentration - - Weight 84.2 kg (185 lb 10 oz) 08/09/2024 4:48 PM WET END SUPERVISOR Height 152.4 cm (5') 08/09/2024 4:48 PM WET END SUPERVISOR Body Mass Index 36.25 08/09/2024 4:48 PM WET END SUPERVISOR Plan of Treatment Health Maintenance Due Date [...] 2025 11/27/2022, 08/18/2021, 11/19/2020, Additional history exists Influenza Adult (#1) 2025 Meningococcal B Vaccine Aged Out No l [...] patient's age to complete this topic Insurance [place] [address] [address] Care Teams Plate Grinder Relationship Specialty Start Date End Date Kailyn Segal PA PCP - General PHYSICIAN NECK BAND OPERATOR 10/19/23
--- OUTSIDE RECORDS SUMMARY | 2025-05-29 12:17 | XMS_ITS | Clinical Summary ---
Author Organization [facility] Address [address] [place] [address] Phone Care Team Providers Care Biomedical Engineering Technician Name Role Phone Unavailable Primary Care Provider [...] on file Legal Sex Female 5:46 AM DIRECTOR OF ARCHITECTURE Gender Identity Not on file Sexual Orientation [...] st Contact Info) Description 08/31/2025 9:00 AM DIRECTOR OF ARCHITECTURE Office Visit [facility] Oncology and Hematology [facility] [address] [facility] [address] [place] [address] Issac Jaimes MD [address] [facility] [address] [place] [address] Health Maintenance Due Date Last [...] Advance Directives For more information, please contact: [phone] * Full Code (Latest Code Status on File) Date Activated Date Inactivated Comments 05/03/2009 11:23 AM 05/04/2009 10:51 AM * Full Code Date Activated Date Inactivated Comments 05/03/2009 7:24 AM 05/03/2009 11:23 AM
--- OUTSIDE RECORDS SUMMARY | 2025-05-29 12:17 | XMS_ITS | Clinical Summary ---
Author Organization [facility] Address [facility] [place] [address] Care Team Providers Care Ceramic Tile Mechanic Name Role Phone Kailyn Segal Primary Care Pr ovider Tristen Livingston MD Unavailable [phone] Allergies No known active allergies Medications Blisovi [...] 1 tablet (88 mcg total) by mouth event specialist product demonstrator before breakfast 4 Active phentermine (ADIPEX-P) 37.5 [...] on file Legal Sex Female 10:58 AM CARBONATOR Gender Identity Not on file Sexual Orientation [...] ANTHEM ACCESS BLUE ACCESS OOS Care Teams Ceramic Tile Mechanic Relationship Specialty Start Date End Date Kailyn Segal PA [address] [place] [address] PCP - General Physician Security Specialist 03/07/24 Tristen Livingston MD [address] [facility] 8 DIV IM BONE MARROW TRANSPLANT, , [place] [address] Medical Oncologist/Datastage Developer Medical Oncology 12/01/24
--- OUTSIDE RECORDS SUMMARY | 2025-05-29 12:17 | XMS_ITS | Clinical Summary ---
Author Organization [facility] [employer] Address [address] [facility] [place] [address] Care Team Providers Care Glaze Wiper Name Role Phone Gavin Frank MD Primary Care Provider [phone] Source Comments [facility],non-owned Affiliates and Associated Physician Practices is amultiple site organization consisting of ambulatory clinics and hospital sitesin [place], [place], [place] and [place]. This disclosure is being madepursuant to the Care Everywhere program and may not contain all information available regarding this patient. Last updated 18.[facility] [employer] Social History Tobacco Use Types Packs/Day Years Used Date Smoking Tobacco: Never Assessed Comments Unknown Sex and Gender Information Value Date Recorded Sex Assigned at Not on file Legal Sex Female 6:23 AM ASPHALT ROLLER PERSON Gender Identity Not on file Sexual Orientation [...] patient's age [place] [address] [facility] Member Subscriber Plan / Payer (Ef fective 2022-Present) Name:Amada Ca Relation to Subscriber:Spouse Name:ZULEMA CA Date of :1973 Address: [address] [place] [address] Payer ID:[id number] (NAIC) Type:PPO Address: [address] [place] [id number] Care Teams Glaze Wiper Relationship Specialty Start Date End Date Gavin Frank MD [address] [place] [address] PCP - General 12/05/18
== END 2025-05-29 10:28 | disposition home or self-care (01) ==
PROVIDERS: PCP Physician Assistant; Visit Provider Physician Assistant
DX: R07.81 Pleurodynia (principal)
CPT/HCPCS: 71046

== ENCOUNTER 2025-07-21 11:26 | Outpatient (CLI) | payer BC, SELFPAY ==
--- OUTSIDE RECORDS SUMMARY | 2025-07-21 11:31 | XMS_ITS | Clinical Summary ---
Author Organization [facility] Address [facility] [place] [address] Care Team Providers Care Loin Trimmer Name Role Phone Kailyn Segal Primary Care Pr ovider Tristen Livingston MD Unavailable [phone] Allergies No known active allergies Medications Blisovi [...] 1 tablet (88 mcg total) by mouth instructor ballroom dancing before breakfast 4 Active phentermine (ADIPEX-P) 37.5 [...] on file Legal Sex Female 10:58 AM FISH PROTECTOR Gender Identity Not on file Sexual Orientation [...] complete this topic Insurance BLUE ACCESS OOS ANTH TRADITIONAL ANTHEM ACCESS [employer] ACCESS OOS Care Teams Loin Trimmer Relationship Specialty Start Date End Date Kailyn Segal PA [address] [place], [place] [phone] PCP - General Physician Pipe Manufacture Supervisor 03/07/24 Tristen Livingston MD [address] [place] [address] Medical Oncologist/Ethylbenzene Cracking Supervisor Medical Oncology 12/01/24
--- OUTSIDE RECORDS SUMMARY | 2025-07-21 11:31 | XMS_ITS | Data Portability ---
Author Organization [place] - [facility] [employer], Main Office Address [address] [place] [address] Care Team Providers Care Developer Relations Manager Name Role Phone TJ DEVLIN Primary Care Provider [phone] TJ DEVLIN Referring Provider [phone] Assessment Encounter Date Assessment Date Assessment LastModified [...] at its worst, and is unable to picker and packer objects. She has tried ibuprofen and Tylenol with minimal relief. She works in [employer]. She has a hx of bilateral carpal [...] XR, hand 2024 025 [email or web address] [facility] [place], [address], [place], [address], 5 12:04:18 XR, hand, 3 or more view 2022 023 [email or web address] [facility] [place], [address], [place], [address], 3 23:53:09 Medication Orders meloxicam 15 mg tablet 2024 025 [email or web address] [facility] #[id number], [address] [facility], [place], [place], [id number], 5 11:04:08 Zepbound 2.5 mg/0.5 mL subcutaneou s pen injector 2022 023 [email or web address] [facility] #[id number], [address] [facility], [place], [place], [id number], 16:13:27 Patient TargetsNo targets recorded. Patient InstructionsNo [...] observ ation record ed. [email or web address] [facility] [place] [address], [place], [address], 05/12/2023 13:41:45 02/08/20 25 XR, hand No observ ation record ed. iman [facility] [place] [address], [place], [address], 02/08/2025 12:04:18 Result Notes None recorded. Problems Name Problem SNOMED Code Status Onset Date Resolution Date Notes Provider Name and Address Organization Details Recorded Time Hypothyroi dism 39284974 Active 2019 Not Available [facility] 3 18:10:22 Attention deficit hyperactiv ity disorder 948194178 Active 2019 Not Available [facility] 3 18:10:22 Kidney disease 88616732 Active 2019 Not Available [facility] 3 18:10:22 Mild major depression 91797023 Active 2021 Not Available [facility] 3 18:10:22 Bilateral carpal tunnel syndrome 0502531120930 9101 Active 2021 Not Available [facility] 3 18:10:22 Pain of bilateral hands 6242008489522 9109 Active 2021 Not Available [facility] 3 18:10:22 Pain of left hand 8925409427145 03 Active 2021 Not Available [facility] 3 18:10:22 Carpal tunnel syndrome 60613117 Active 2021 Not Available [facility] 3 18:10:22 COVID-19 390314459 Active 11/18/ 2022 Not Available [facility] 3 18:10:22 Cough 54959578 Active 2021 Not Available [facility] 3 18:10:22 Restless legs syndrome 78571219 Active 2022 Not Available [facility] 3 18:10:22 Right upper quadrant pain 029425985 Active 2022 Not Available [facility] 3 18:10:22 Hyperlipid emia 67210447 Active 2022 Not Available [facility] 3 18:10:22 Hydrourete r 64591937 Active 2022 Not Available [facility] 3 18:10:22 Trigger thumb of left hand 8986557603918 07 Active 2022 Not Available [facility] 3 18:10:22 Herpes labialis 5099394 Active 2022 YANI Toth [address], [address] , [facility] 3 11:11:29 Pain of right hand 4912121282169 09 Active 2024 ILDA Simons, [facility] 5 16:16:42 Pain of right wrist 7669868508608 00 Active 2024 Carmen Bustamante ATC L null, [facility] 5 16:39:09 Tendinitis of right wrist region 4033066611137 9109 Active 2024 Carmen Bustamante ATC L null, [facility] 5 16:39:16 Problem Notes None recorded. Procedures Surgical History Date Name Laterality Status Provider Name and Address Organization Details Recorded Time 06/16/20 23 release of trigger finger completed RUBEN Pedro [facility] 07/30/2023 11:25:14 05/24/20 23 hysteroscopy completed RUBEN Pedro [facility] [employer] [facility] 07/29/2023 14:55:58 09/22/19 20 Lithotripsy completed Not Available [facility] 10/15/19 07:27:47 05/03/20 09 thyroidectomy completed Not Available [facility] 2022 07:27:47 completed Not Available [facility] 0 10/14/2022 07:27:47 Lithotripsy completed Not Available [facility] 10/14/2022 07:27:47 completed Not Available [facility] 0 10/14/2022 07:27:47 completed Not Available [facility] 0 10/14/2022 07:27:47 Tubal Ligation completed Not Available [facility] 10/14/2022 07:27:47 Knee completed Not Available [facility] 08/2022 07:27:47 Imaging Results None recorded. [...] administe red by the provider 01/09 completed [facility]: 0003- 0494- 20 Not Available Not Available [...] administe red by the provider 02/10 completed [facility]: 0409- 4276- 17 Not Available Not Available [...] Updated DateTime 02/07/2025 152.4 cm 34.2 kg/m2 30706.66 g Toña Rivera CNA [facility] 02/07/2025 16:10:53 Date Recorded Body height Body mass index (BMI) Body weight Provider Name and Address Organization Details Last Updated DateTime 05/12/2023 152.4 cm 33.2 kg/m2 85405.7 g Carmen Bustamante ATC L [facility] 05/12/2023 11:17:30 Date Recorded Body height Body mass index (BMI) Body weight Pain severity - 0-10 verbal numeric rating [Score] - Reported Provider Name and Address Organization Details Last Updated DateTime 07/13/2023 152.4 cm 33.2 kg/m2 [address] [employer] 07/13/2023 10:08:12 Date Recorded Body height Body temperature Body mass index (BMI) Body weight Respiratory rate Oxygen saturation Heart rate Systolic And Diastolic Provider Name and Address Organization Details Last Updated DateTime 3 152.4 cm 98.1 [degF] 34.8 kg/m2 01854.4 4 g 16 /min 98 % 109 /min 122/80 mm[Hg] Shanthi Kelly [facility] 3 11:25:54 Date Recorded Body height Body mass index (BMI) Body weight Pain severity - 0-10 verbal numeric rating [Score] - Reported Provider Name and Address Organization Details Last Updated DateTime 07/30/2023 152.4 cm 31.2 kg/m2 20102.78 g 1 Maricel Jose [facility] 07/30/2023 10:18:46 Social History Question Answer Notes LastModified by Organizat ion Details LastModified Time Tobacco Smoking Status Never [facility]/13/2023 10:01:21 What Is Your Level Of Caffeine Consumption? Moderate [id number] Information not available 10/14/2022 How Much Tobacco Do You Chew? None [id number] Information not available 10/14/2022 In The 14 Days Before Symptom Onset, Have You Had Close Contact With A Laboratory-confir med COVID-19 While That Case Was Ill? No [email or web address] Information not available 07/13/2023 In The 14 Days Before Symptom Onset, Have You Had Close Contact With A Person Who Is Under Investigation For COVID-19 While That Person Was Ill? No [email or web address] Information not available 07/13/2023 What Type Of Diet Are You Following? REGULAR [id number].[id number] Information not available 10/14/2022 Which Illicit Or Recreational Drugs Have You Used? None Information not available 07/13/2023 Have There Been Any Changes To Your Family Or Social Situation? No [email or web address] Information no t available 07/13/2023 What Is The Fluoride Status Of Your Home? Unknown Information not available 07/13/2023 Are There Any Guns Present In Your Home? Yes [email or web address] Information not available 07/13/2023 Do You Use Insect Repellent Routinely? No [email or web address] Information not available 07/13/2023 Where Do You Live? [facility] [email or web address] Information not available 07/13/2023 What Was The Date Of Your Most Recent Tobacco Screening? 02/07/2025 [email or web address] Information not available 02/07/2025 Do You Have Any Pets? Yes [email or web address] Information not available 07/13/2023 Do You Use Your Seat Belt Or Car Seat Routinely? Yes Information not available 07/13/2023 Do You Have Smoke And Carbon Monoxide Detectors In Your Home? Yes [email or web address] Information not available 07/13/2023 Are You Passively Exposed To Smoke? No [email or web address] Information no t available 07/13/2023 Are There Any Smokers In Your House? No Information not available 07/13/2023 How Much Tobacco Do You Smoke? No MIGRATION.[id number] Information not available 10/14/2022 Do You Use Sunscreen Routinely? Yes [email or web address] Information not available 07/13/2023 Have You Recently Traveled Abroad? No Information not available 07/13/2023 Do You Have Any Dietary Restrictions? No Information not available 07/13/2023 Sex: Unknown Functional Status Question Answer Note LastModified by Organizat ion Details LastModified Time Do you use any illicit or recreational drugs? No [email or web address] Information not available 07/13/2023 Do you or have you ever used any other forms of tobacco or nicotine? No [email or web address] Information not available 07/13/2023 What is your level of alcohol consumption? None MIGRATION.332839 4514 Information not available 10/14/2022 Do you or have you ever used smokeless tobacco? Never used smokeless tobacco MIGRATION.826095 0269 Information not available 10/14/2022 Are you currently employed? 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 Never used electronic cigarettes Information not available 07/13/2023 What is your exercise level? Occasional MIGRATION.069194 6426 Information not available 10/14/2022 Mental Status Question Answer Note LastModified by Organization D etails LastModified Time Do you feel stressed (tense, restless, nervous, or anxious, or unable to sleep at night)? [id number] [email or web address] Information not available 07/13/2023 Family History Relationship Description Onset Age of this Age Resolved Age Notes LastModified by Organization Details LastModified Time Maternal Grandmother Family history of malignant neoplasm [id number] Not available 10/14/2022 07:27:47 Maternal Grandmother Hypertensive [...] (COVID-19) vaccine, UNSPECIFIED 1 completed Not Available [facility] 08/04/2023 18:10:23 SARS-COV-2 (COVID-19) vaccine, UNSPECIFIED 1 completed Not Available [facility] 08/04/2023 18:10:23 Past Encounters Encounter ID Performer Location Encounter Start Date Encounter Closed Date Diagnosis/Indication Diagnosis SNOMED-CT Code Diagnosis ICD10 Code Diagnosis IMO Codes Diagnosis Note [id number] YANI Toth [facility] [place] [address] [place] [address] 02/10/2021 00:00:00 02/10/2021 21:49:06 [id number] Mahad Arevalo MD [facility] [place] [address] [place] [address] 05/13/2021 00:00:00 05/13/2021 14:18:26 [id number] YANI Toth [facility] [place] [address] [place] [address] 06/20/2021 00:00:00 07/14/2021 22:49:15 [id number] Mahad Arevalo MD [facility] [place] [address] [place] [address] 08/20/2021 00:00:00 08/20/2021 16:38:32 [id number] Kostas Velarde MD [facility] [place] [address] [place] [address] 01/09/2022 00:00:00 01/11/2022 22:31:59 [id number] Mahad Arevalo MD [facility] [place] [address] [place] [address] 01/14/2022 00:00:00 01/14/2022 17:33:30 [id number] Mahad Arevalo MD [facility] [place] [address] [place] [address] 02/24/2022 00:00:00 02/24/2022 17:02:57 [id number] Mahad Arevalo MD [facility] [place] [address] [place] [address] 03/31/2022 00:00:00 03/31/2022 16:43:26 [id number] Mahad Arevalo MD [facility] [place] [address] [place] [address] 06/30/2022 00:00:00 06/30/2022 17:23:36 [id number] YANI Toth [facility] [place] [address] [place] [address] 07/17/2022 00:00:00 08/14/2022 16:51:54 [id number] Mahad Arevalo MD [facility] [place] [address] [place] [address] 08/25/2022 00:00:00 08/25/2022 12:33:58 [id number] YANI Toth [facility] [place] [address] [place] [address] 01/15/2023 11:24:26 01/15/2023 12:12:55 Hypothyroidism 84584901 E03.9 on supplement and due for TFTs Attention deficit hyperactivity disorder 807935541 F90.9 stable on phentermin e which helps focus for patient. Restless l egs syndrome 59674220 G25.81 stable on requip 1mg 1-2 qhs Long-term drug therapy 294466258 Z79.899 routine cmp and cbc ordered as well as b12 Cholesterol screening 27 8140147 Z13.220 fasting lipids due Diabetes m ellitus screening 559661853 Z13.1 screening diabetes due Body mass index 30+ - obesity 791880942 Z68.34 screenin insulin ordered with weight gain and bmi increase Right uppe r quadrant pain 721566956 R10.11 noted on exam today. refer for u/s trung r [id number] Marlon Batista MD [facility] [place] [address] [place] [address] 05/12/2023 11:12:04 05/12/2023 11:49:46 Pain of left hand 9967882978 13457 M79.642 Trigger th umb of left hand 0543726696 05191 M65.902 [id number] Marlon Batista MD [facility] [place] [address] [place] [address] 07/13/2023 10:00:16 07/13/2023 10:18:24 Trigger thumb of left hand 4843662146 89397 M65.200 [id number] Marlon Batista MD [facility] [place] [address] [place] [address] 07/30/2023 10:16:33 07/30/2023 10:23:01 Pain of left hand 1593170265 69456 M79.583 [id number] YANI Toth [facility] [place] [address] [place] [address] 07/30/2023 11:18:32 07/30/2023 12:04:30 Hypothyroidism 89627921 E03.9 on supplement , stable. Attention deficit hyperactivity disorder 701464873 F90.9 stable on phentermin e which helps focus for patient. Restless l egs syndrome 83141910 G25.81 stable on requip 1mg 1-2 qhs Long-term drug therapy 963129924 Z79.899 labs are UTD Body mass index 30+ - obesity 141483927 Z68.34 pt interested in zepbound therapy as directed [id number] Marlon Batista MD [facility] [place] [address] [place] [address] 02/07/2025 15:50:49 02/07/2025 16:59:26 Pain of right hand 5600479272 81237 M79.497 8472309 Tendinitis of right wrist region 1049620911 5507494 M77.8 [id number] Health Concerns Section Related Observation LastModified by Organization Detai ls LastModified Time None Recorded Concern Status LastModified by Organization Details LastModified Time None Recorded Advance Directives Directive None Recorded Payers Insurance Date Sequence Insurance Name Policy Number Policy Tam Covered Member ID Tam Member ID Guarantor Name 02/07/2025 1 [place] [id number] [place] [id number] [place] Notes Date Note Type [...] any numbness and tingling. YANI Portillo [address], [place], [address], [place] [facility] 05/12/2023 13:45:00 3 text/html Anxiety/DepressionReported by PatientHPIFor [...] sleep difficulties,no skin changes, andno hair changes. YANI Toth [address] [place] [address], [place] [address], [place], [address], [place] [facility] 08/12/2023 21:26:16 OBGyn Episode No OBEpisode recorded.
--- OUTSIDE RECORDS SUMMARY | 2025-07-21 11:31 | XMS_ITS | Clinical Summary ---
Author Organization [facility] Address [address] [place] [address] Care Team Providers Care Speech Communication Professor Name Role Phone Kailyn Segal Primary Care Provider [phone] Allergies No known active allergies Medications losartan [...] Comments Blood Pressure 142/88 08/09/2024 6:26 PM JANITORIAL ASSISTANT Pulse 91 08/09/2024 6:26 PM JANITORIAL ASSISTANT Temperature 36.7 C (98.1 F) 08/09/2024 6:26 PM JANITORIAL ASSISTANT Respiratory Rate 16 08/09/2024 6:26 PM JANITORIAL ASSISTANT Oxygen Saturation 98% 08/09/2024 6:26 PM JANITORIAL ASSISTANT Inhaled Oxygen Concentration - - Weight 84.2 kg (185 lb 10 oz) 08/09/2024 4:48 PM JANITORIAL ASSISTANT Height 152.4 cm (5') 08/09/2024 4:48 PM JANITORIAL ASSISTANT Body Mass Index 36.25 08/09/2024 4:48 PM JANITORIAL ASSISTANT Plan of Treatment Health Maintenance Due Date [...] Additional history exists Influenza Adult (#1) 2025 Hepatitis A Vaccines Aged Out No long er eligible based on patient's age to complete this topic Meningococcal B Vaccine Aged Out No l [...] patient's age to complete this topic Insurance [facility] Care Teams Speech Communication Professor Relationship Specialty Start Date End Date Kailyn Segal PA PCP - General PHYSICIAN BUTTONHOLE FACER 10/19/23
--- OUTSIDE RECORDS SUMMARY | 2025-07-21 11:31 | XMS_ITS | Clinical Summary ---
Author Organization [facility] Address [address] [facility] [address] [facility] [place] [address] Care Team Providers Care Tube Former Operator Name Role Phone Gavin Frank MD Primary Care Provider [phone] Source Comments [facility],non-owned Affiliates and Associated Physician Practices is amultiple site organization consisting of ambulatory clinics and hospital sitesin [place], [place], [place]. This disclosure is being madepursuant to the Care Everywhere program and may not contain all information available regarding this patient. 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 Gender Identity Not on file Sexual Orientation [...] 19+ 3-dose series) 10/18/1994 Cervical Cancer Screening 10/18/1996 PAP SMEAR 10/18/1996 PAP with HPV 10/18/2005 DEPRESSION SCREENING 08/16/2024 COVID-19 VACCINE (2024-2 6 season) 2025 INFLUENZA VACCINE (#1) 2025 ZOSTER [...] patient's age to complete [place] [address] [facility] Care Teams Tube Former Operator Relationship Specialty Start Date End Date Gavin Frank MD [address] [place] [address] PCP - General 12/05/18
--- OUTSIDE RECORDS SUMMARY | 2025-07-21 11:31 | XMS_ITS | Clinical Summary ---
Author Organization 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 [facility] [address] [place] [address] Health Maintenance Due Date Last [...] years 10/18/2020 INFLUENZA VACCINE (#1) 2025 Insurance [employer] BLUE ACCESS/TRUE BLUE PPO BS BLUE ACCESS/TRUE BLUE PPO Exepron BLUE ACCESS/TRUE BLUE PPO Advance Directives For more information, please contact: [phone] * Full Code (Latest Code Status on File) Date Activated Date Inactivated Comments 05/03/2009 11:23 AM 05/04/2009 10:51 AM * Full Code Date Activated Date Inactivated Comments 05/03/2009 7:24 AM 05/03/2009 11:23 AM
[2025-07-21 11:54] LABS: Hematocrit 43.1 % (37.0-47.0); Hemoglobin 14.0 g/dL (12.0-15.0); Immature Granulocyte Percent A 0.3 % (0-0.5); Lymphocytes Absolute Auto 1.70 K/mm3 (0.9-3.2); Mean Corpuscular HGB Conc 32.5 g/dl (32-36); Mean Corpuscular Hemoglobin 29.1 pg (26-34); Mean Corpuscular Volume 89.6 fl (80-100); Nucleated Red Blood Cells Absolute Auto 0.000 K/mm3 (0.0-0.012); Nucleated Red Blood Cells Perc 0.0 % (0.0-0.2); Platelet Count Result 351 k/mm3 (150-375); Red Blood Count 4.81 M/mm3 (4.2-5.4); White Blood Count 6.4 K/mm3 (4.5-10.0)
[2025-07-21 12:07] LABS: Alanine Aminotransferase 17 U/L (6-35); Albumin Level 4.3 g/dL (3.5-5.1); Alkaline Phosphatase 51 U/L (38-126); Anion Gap 4 mmol/L (4-12); Aspartate Amino Transferase 25 U/L (14-36); Bilirubin,Total 0.7 mg/dL (0.2-1.3); Blood Urea Nitrogen 11 mg/dL (7-17); Calcium 9.5 mg/dL (8.4-10.2); Carbon Dioxide 26 mmol/L (22-30); Chloride 106 mmol/L (98-107); Cholesterol 211 mg/dL (0-200); Estimated Glomerular Filt Rate 53; Glucose 91 mg/dL (65-110); HDL Direct 53 mg/dL; Potassium 4.7 mmol/L (3.4-5.0); Sodium 136 mmol/L (137-145); Total Protein 8.0 g/dL (6.3-8.2); Triglycerides 99 mg/dL (<150)
[2025-07-21 12:35] LABS: Free T4 Free Thyroxine 1.46 ng/dL (0.78-2.19)
[2025-07-21 12:43] LABS: Thyroid Stimulating Hormone 1.400 uIU/mL (0.465-4.680)
== END 2025-07-21 11:27 | disposition home or self-care (01) ==
LOC: ANHLAB 11:29
PROVIDERS: PCP Physician Assistant; Visit Provider Physician Assistant
DX: Z13.220 Encounter for screening for lipoid disorders (principal); E03.9 Hypothyroidism, unspecified; Z79.899 Other long term (current) drug therapy
CPT/HCPCS: 36415; 80053; 80061; 84439; 84443; 85025